=== PATIENT | male | born 1950 | race Caucasian/White ===

== ENCOUNTER 2020-05-28 09:36 | Day surgery (SDC) | payer MEDICARE, SELFPAY ==
[2020-05-25 13:10] VITALS: BMI 32.6
--- NOTE | 2020-05-27 13:46 | P.CONAN_ITS ---
Documented by User: Janeth Romero 05/27/20 13:51 HPI - Anesthesia Eval Consult details Narrative: 69yo M for L Henri R foot repair with MAC 03/2020 [facility] Past Medical History Medical History Arthritis Back pain BPH (benign prostatic hyperplasia) Elevated cholesterol Finger mass, right Gout Hypertension On beta mango at home Pre-diabetes Skin cancer TIA (transient ischemic attack) Surgical History Surgical History History of back surgery History of total right hip arthroplasty Hx of colonoscopy Hx of hammer toe correction S/P Achilles tendon repair Social History Social History Smoking Status: Never smoker Use of substances other than those prescribed or required for medical reasons: No Have you been hit, kicked, punched, or otherwise hurt by someone within the past year? If so, by whom?: No Advance Directives: No Advance Directives Information Provided: No Advance Directives on File: No Recently lost weight without trying: No Meds Allergies Allergy/AdvReac Type Severity Reaction Status Date / Time No Known Allergies Allergy Unknown Verified 05/28/20 10:05 Home Medications Medication Instructions Recorded Confirmed Type amlodipine 5 mg PO DAILY 05/25/20 05/25/20 History doxazosin 2 mg PO BEDTIME 05/25/20 05/25/20 History metoprolol tartrate 25 mg PO BID 05/25/20 05/25/20 History simvastatin 20 mg PO DAILY 05/25/20 05/25/20 History Exam Exam Date and Time: May 27, 2020 1346 Height,Weight and Vital Signs: Height 6 ft Weight 109.316 kg Pertinent Lab Results Pertinent Lab Results: Laboratory Tests 03/09/20 03/09/20 11:35 11:35 WBC 6.6 Hgb 12.5 L Hct 35.9 L Plt Count 238 Sodium 138 Potassium 4.0 Chloride 103 BUN 9 Creatinine 0.96 Assessment and Plan Assessment Anesthesia Assessment: Chart Reviewed Documented by User: Arsen Griggs 05/28/20 10:23 [facility] Past Medical History Medical History Arthritis Back pain BPH (benign prostatic hyperplasia) Elevated cholesterol Finger mass, right Gout Hypertension On beta mango at home Pre-diabetes Skin cancer TIA (transient ischemic attack) Surgical History Surgical History History of back surgery History of total right hip arthroplasty Hx of colonoscopy Hx of hammer toe correction S/P Achilles tendon repair Social History Social History Smoking Status: Never smoker Use of substances other than those prescribed or required for medical reasons: No Have you been hit, kicked, punched, or otherwise hurt by someone within the past year? If so, by whom?: No Advance Directives: No Advance Directives Information Provided: No Advance Directives on File: No Recently lost weight without trying: No Meds Allergies Allergy/AdvReac Type Severity Reaction Status Date / Time No Known Allergies Allergy Unknown Verified 05/28/20 10:05 Home Medications Medication Instructions Recorded Confirmed Type amlodipine 5 mg PO DAILY 05/25/20 05/25/20 History doxazosin 2 mg PO BEDTIME 05/25/20 05/25/20 History metoprolol tartrate 25 mg PO BID 05/25/20 05/25/20 History simvastatin 20 mg PO DAILY 05/25/20 05/25/20 History Exam Airway Mallampati Class: II TM Dist: >3cm Neck ROM: Full Heart: RRR Assessment and Plan Assessment Anesthesia Assessment: Anesthesia Plan Discussed Final Anesthetic Review NPO: Yes ASA Class: II Final Preanesthetic Review: Consent Obtained/Reviewed Anesthetic Plan Anesthetic Plan: MAC:
--- NOTE | 2020-05-27 13:55 | MHC.SHP ---
Pre-Procedural Eval Section A The patient is an INPATIENT: No Changes since office visit: Yes Patient answered all questions The History & Physical has been completed within 30 days and I have reviewed it.: Yes Section B Chief Complaint: Skin Ulcer and Left 2nd Osteomylitis Allergies: Allergies Allergy/AdvReac Type Severity Reaction Status Date / Time No Known Allergies Allergy Unknown Unverified 05/25/20 12:59 Plan Diagnosis/Plan: Unchanged Patient has been examined and remains a candidate for the planned procedure
--- NOTE | 2020-05-28 | HP_ITS ---
[facility] HISTORY AND PHYSICAL PATIENT NAME: Bobo Benjamin DATE OF : 1950 LOCATION: [facility] DATE OF ADMIT: 05/28/2020 PCP: HISTORY AND PHYSICAL Page 2 DATE OF SERVICE: 05/28/2020 DATE OF PROPOSED SURGERY: 05/28/2020. PREOPERATIVE DIAGNOSES: 1. Hammertoe, left 2nd. 2. Hammertoe, left 3rd. 3. Hammertoe, left 4th. 4. Hammertoe, left 5th. 5. Skin ulcer, left foot. 6. Osteomyelitis, left second toe. 7. Skin disease of left third and fourth toes. PLANNED PROCEDURES: 1. Hammertoe repair, left 2nd, 3rd, 4th, and 5th toes. 2. Excision of skin ulcer. 3. Bone biopsy, left foot. 4. Complex wound closure, left foot. 5. Excision of diseased skin, left foot. PLANNED ANESTHESIA: MAC anesthesia. CHIEF COMPLAINT AND HISTORY OF PRESENT ILLNESS: Bobo Benjamin is a 69-year-old male, who relates history of progressively worsening painful hammertoes of the left second through fifth toes. The patient has had multiple episodes of skin infection and skin ulceration with probable osteomyelitis involving the distal aspect of the left second toe. This condition has been present over the past few years and has progressively worsened since his Achilles tendon rupture followed by surgical repair. Conservative care has consisted of change in shoes, accommodative padding, debridement, wound care, oral and topical antibiotics. The patient is now requesting surgical treatment. PAST MEDICAL HISTORY: Significant for a history of gout, arthritis, anemia, hypertension, high cholesterol. CURRENT MEDICATIONS: Simvastatin 20 mg, metoprolol 25 mg, doxazosin 2 mg, aspirin 81 mg, amlodipine 5 mg. ALLERGIES: THE PATIENT HAS NO KNOWN ALLERGIES OR DRUG SENSITIVITIES. FAMILY HISTORY: Significant for hypertension, heart disease, colon cancer. SOCIAL HISTORY: The patient denies smoking, denies use of any recreational drugs, denies use of any caffeinated drinks. The patient does drink 1 to 2 alcoholic drinks per day. 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 PODIATRIC PHYSICAL EXAMINATION: VASCULAR EXAM: The patient displays +1/4 pulse of DP and PT arteries bilateral with normal cap refill time. The patient also displays +1/4 edema bilateral ankles and legs. DERMATOLOGIC: Reveals a small skin ulceration on the plantar aspect of the left second toe measuring 2 mm in diameter x 1 mm in depth. There is currently no active infection noted involving the skin. NEUROLOGIC EXAM: Reveals vibratory sensation, reduced light touch, left foot more severe than the right. ORTHOPEDIC EXAM: Reveals a rigid hammertoe/mallet toe involving the left second through fifth toes, which is non reducible. The patient was seen most recently in my office on May 13, 2020. Preoperative informed consent was obtained from the patient that day for his planned left foot surgery. The patient has been instructed of all potential risks and complications and is compliant with surgical treatment. Preoperative medical clearance will be provided by the primary care physician, Dr. Yan Rose. BEATRICE Sosa/MARI / [id number] CC:? Yan Rose MD MTDD
--- NOTE | 2020-05-28 | HP_ITS ---
[facility] HISTORY AND PHYSICAL PATIENT NAME: Bobo Benjamin DATE OF : 1950 LOCATION: [facility] [[email or web address] DATE OF ADMIT: 05/28/2020 PCP: HISTORY AND PHYSICAL Page 1 DATE OF SERVICE: 05/28/2020 HISTORY OF PRESENT ILLNESS: The patient is a 69-year-old male, who is scheduled for surgery with Dr. Crenshaw, left hammertoes repair. The patient previously had right foot repair couple of months ago. He was seen in the office for repeat preop check on May 05, 2020. He feels well. His surgery scheduled for May 28. He had an EKG done in March. Labs were reviewed. REVIEW OF SYSTEMS: Unchanged. PAST MEDICAL HISTORY: Unchanged. PHYSICAL EXAMINATION: GENERAL: He is awake and alert, in no distress. VITAL SIGNS: Temperature 98.1, pulse 72, respirations 12, blood pressure 140/80. Weight is 241, 6 feet. HEENT: Clear. NECK: Supple. No lymph nodes, bruits, or masses. HEART: Sounds S1 and S2. Regular rate. LUNGS: Clear. ABDOMEN: Soft, nontender. Positive bowel sounds. No HSM. EXTREMITIES: No clubbing or cyanosis. Trace edema. 1+ pulses. NEUROLOGICAL: Nonfocal. Cranial nerves are intact. PRESENT MEDICATIONS: Simvastatin 20 mg, metoprolol 25 mg twice a day, amlodipine 5 mg a day, doxazosin 2 mg a day. ASSESSMENT AND PLAN: He is medically stable for the proposed procedure. I will be available if there are any medical questions. MD MANNY Epstein/MARI / [id number] MTDD
[2020-05-28 10:19] VITALS: BP 117/81; PULSE 59; RESP 16; TEMP 36.4; O2SAT 98
[2020-05-28] MEDS: ceFAZolin Sodium/Dextrose,Iso 2 GM/50 ML PIGGYBACK IV (10:26)
[2020-05-28] MEDS: Lactated Ringers 1,000 ML 100 ML IVCONT (10:35)
[2020-05-28 12:17] VITALS: BP 97/57; PULSE 57; RESP 18; TEMP 36; O2SAT 95
--- NOTE | 2020-05-28 12:28 | PM.OP ---
Brief Operative Note Date of procedure: 05/28/20 Pre-op diagnosis: hammertoe left 2,3,4 and 5th toes; skin ulcer left 2nd toe, OM left 2, ulce Post-op diagnosis: same Procedure: hammertoe repair left 2,3,4 and 5th toes; excision of skin ulcer left 2nd toe, bone biopsy left 2nd toe, excision of skin left 3rd and 4th toes with complex wound closure over exposed tendon and bone Surgeon: Efrain Reina Anesthesia: MAC Estimated blood loss (mL): 1.0 Condition: stable
[2020-05-28 12:32] VITALS: BP 134/67; PULSE 51; RESP 16; O2SAT 98
[2020-05-28 12:47] VITALS: BP 138/87; PULSE 52; RESP 18; O2SAT 98
--- NOTE | 2020-05-28 13:14 | HO.POSTANES ---
Post Anesthesia Evaluation Post Anesthesia Evaluation Vital Signs: Vital Signs Temp Pulse Resp BP Pulse Ox 05/28/20 12:47 96.8 F 52 18 138/87 98 05/28/20 12:32 51 16 134/67 98 05/28/20 12:17 96.8 F 57 18 97/57 L 95 05/28/20 10:19 97.6 F 59 16 117/81 98 Anesthesia: Monitored Mental Status: Awake Pain Control: Satisfactory Nausea/Vomiting: None Hydration: Adequate Anesthesia-Related Issues: No Anes. Related Issues
--- NOTE | 2020-05-28 13:35 | OP_ITS ---
SURGEON: Efrain Reina DPM PREOPERATIVE DIAGNOSIS: POSTOPERATIVE DIAGNOSIS: PROCEDURE PERFORMED: ESTIMATED BLOOD LOSS: COMPLICATIONS: ANESTHESIA: Consisted of local administration of a total of 12 mL of an equal mix of 2% lidocaine with epinephrine 1:100,000, and 0.5% Marcaine plain. Intravenous sedation was provided by the Anesthesia Department. ASSISTANTS: SPECIMENS: PREOPERATIVE DIAGNOSES: 1. Hammertoe of left second toe. 2. Hammertoe of left third toe. 3. Hammertoe of left fourth toe. 4. Hammertoe of left fifth toe. 5. Skin ulcer, left second toe. 6. Possible osteomyelitis, chronic osteomyelitis, left second toe distal phalanx. 7. Skin disease of the left third and fourth toes. POSTOPERATIVE DIAGNOSES: 1. Hammertoe of left second toe. 2. Hammertoe of left third toe. 3. Hammertoe of left fourth toe. 4. Hammertoe of left fifth toe. 5. Skin ulcer, left second toe. 6. Possible osteomyelitis, chronic osteomyelitis, left second toe distal phalanx. 7. Skin disease of the left third and fourth toes. PROCEDURES PERFORMED: 1. Hammertoe repair of left second toe. 2. Hammertoe repair of left third toe. 3. Hammertoe repair of left fourth toe. 4. Hammertoe repair of left fifth toe. 5. Excision of skin ulcer, left second toe. 6. Bone biopsy, left second toe. 7. Complex wound closure overlying the exposed bone and tendon. 8. Excision of skin lesions of left third and fourth toes. ENVIRONMENTAL CONTROL ADMINISTRATOR SURGEON: Shanon Garcia DPM INTRODUCTION: The patient was brought to the operating room, placed on the operating table in the supine position. After having been suitably anesthetized with local infiltrative anesthesia, the left lower extremity was then prepped and draped in the usual sterile manner. Please note that prior to the start of the procedure, the left foot was exsanguinated utilizing an Esmarch bandage and left ankle tourniquet was then inflated to 250 mmHg pressure for the duration of the procedures. Hammertoe repair of left second, third, fourth, and fifth toes: Attention was directed to the dorsum of the left second, third, fourth, and fifth toes, where dorsal incision of approximately 2 to 2.5 cm in length were effected centered over the dorsum of the PIP joints. The incisions were deepened in the same plane and hemostasis was acquired as necessary. Skin margins were underscored and retracted. A transverse incision was effected through the extensor tendon complex at the level of the proximal interphalangeal joint and the extensor tendon was underscored and retracted. The hypertrophic head of the proximal phalanx was then delivered from the wound and excised from the wound in toto utilizing a power sagittal saw. The wound was irrigated with copious amounts of sterile saline. The extensor tendons were coapted to maintain utilizing a 3-0 Vicryl and skin margins were closed with 4-0 nylon. Excision of skin ulcer and bone biopsy, left second toe: Attention was directed to the dorsum of the left second toe, where a transverse incision was effected at the level of the distal interphalangeal joint. A converging elliptical incision was effected just beyond distal and plantar to the skin ulcer of the left second toe. The incisions were deepened in same plane and the ellipse of skin as well as ulcer and distal phalanx were excised and sent to Pathology for bone biopsy evaluation for osteomyelitis. Wound was irrigated. The skin margins were then coapted to maintain utilizing 3-0 nylon. Excision of skin lesions, left third and fourth toes. Attention was directed to the left third and fourth toe, where transverse incisions were effected at the level of the DIP joint and then converging elliptical incisions were effected to excise the diseased skin and nail as well as distal phalanx of both these toes. The wounds were irrigated with copious amounts of sterile saline. Skin margins were then closed with a combination of 3-0 and 4-0 nylon utilizing complex wound closure over exposed bone and tendon. CONCLUSION: At the conclusion of these procedures, the operative sites were injected with 5 mL of Marcaine 0.5% plain, 1 mL of dexamethasone phosphate. Sterile Xeroform, 2-inch Conform, 1-inch Conform Betadine-soaked gauze, Kerlix fluffs, and 4-inch Conform were applied to the left lower extremity. The left ankle tourniquet was deflated. Normal blood flow was reestablished to the left lower extremity. The patient was discharged to recovery with vital signs stable. FINAL DISPOSITION: The patient is discharged to home with instructions for self-care include the followin. To keep dressings dry, clean, and intact. 2. To keep the left leg elevated with ice above the ankle. 3. To take all medications as prescribed. 4. Limit activity to minimum. 5. To always use surgical shoe and crutches or walker when ambulating. 6. Lastly, the patient has prescription for Keflex 500 mg, total #20 one p.o. b.i.d. BEATRICE Sosa/MARI / [id number]
== END 2020-05-28 13:30 | disposition home or self-care (01) ==
PROVIDERS: PCP Internal Medicine; Visit Provider Podiatrist
PROC: (CPT 28285; principal; 2020-05-28 11:20)
DX: M20.42 Other hammer toe(s) (acquired), left foot (principal); L97.521 Non-pressure chronic ulcer of other part of left foot limited to breakdown of skin; M86.9 Osteomyelitis, unspecified; L98.8 Other specified disorders of the skin and subcutaneous tissue; M10.9 Gout, unspecified; R73.03 Prediabetes; E78.00 Pure hypercholesterolemia, unspecified; I10 Essential (primary) hypertension; Z79.899 Other long term (current) drug therapy; Z85.828 Personal history of other malignant neoplasm of skin; Z86.73 Personal history of transient ischemic attack (TIA), and cerebral infarction without residual deficits; Z96.641 Presence of right artificial hip joint; Z98.890 Other specified postprocedural states
CPT/HCPCS: 28285 ×4; 11423 ×2; 13131; 88304; 88305; 88311; J0690; J1100; J2250; J3010

== ENCOUNTER 2020-07-29 14:18 | Outpatient (REF) | payer MEDICARE, SELFPAY ==
[2020-07-29 15:26] LABS: Influenza A PCR NEGATIVE (Negative); Influenza B PCR NEGATIVE (Negative); Resp Syncy Virus RNA Qual PCR NEGATIVE (Negative); SARS COV2 PCR INHOUSE NEGATIVE (Negative)
== END 2020-07-29 14:19 | disposition home or self-care (01) ==
LOC: HO.LNP 14:18
PROVIDERS: Visit Provider Internal Medicine
DX: Z20.828 Contact with and (suspected) exposure to other viral communicable diseases (principal)
CPT/HCPCS: 0241U

== ENCOUNTER 2021-03-09 11:50 | Outpatient (REF) | payer MEDICARE, SELFPAY ==
[2021-03-09 13:20] LABS: MANUAL DIFF FLAG NO
[2021-03-09 13:23] LABS: Basophils Percent Auto 0.7 % (0-2); Eosinophils Absolute Auto 0.1 X10*3/uL (0.0-0.4); Eosinophils Percent Auto 1.9 % (0-4); Hemoglobin 12.1 g/dl (14.0-18.0); Imm Gran Abs Auto 0.02 X10*3/uL (0.00-0.03); Imm Gran Pct Auto 0.3 % (0.0-0.4); Lymphocytes Absolute Auto 1.4 X10*3/uL (1.2-4.9); Lymphocytes Percent Auto 24.8 % (20-40); Mean Corpuscular HGB Conc 34.6 g/dl (31.0-36.0); Mean Corpuscular Volume 89.7 fL (80-98); Mean Platelet Volume 10.9 fL (9.4-12.4); Monocytes Absolute Auto 0.5 X10*3/uL (0.1-1.2); Monocytes Percent Auto 8.6 % (2-11); Neutrophils Absolute Auto 3.7 X10*3/uL (2.0-8.3); Neutrophils Percent Auto 63.7 % (45-73); Platelet Count 228 X10*3/uL (160-400); Red Cell Distribution Width 12.3 % (11.0-16.0); White Blood Count 5.7 X10*3/uL (4.8-10.8)
[2021-03-09 13:44] LABS: Alanine Aminotransferase 23 U/L (0-40); Alkaline Phosphatase 44 U/L (39-117); Anion Gap 13 (12-20); Aspartate Amino Transferase 23 U/L (5-37); Bilirubin Total 0.6 mg/dL (0.0-1.0); Blood Urea Nitrogen 12 mg/dL (9-16); Carbon Dioxide 24 mmol/L (22-29); Chloride 106 mmol/L (96-108); Estimated Glomerular Filt Rate > 60; Glucose Random 130 mg/dL (60-115); Potassium 4.1 mmol/L (3.3-5.1); Sodium 139 mmol/L (135-145); Total Protein 6.4 g/dL (6.5-8.0)
[2021-03-09 13:58] LABS: Prostate Specific Antigen Scr 2.38 ng/mL (<0.05-4.0)
[2021-03-09 14:16] LABS: Vitamin B12 347 pg/mL (200-900)
[2021-03-09 14:22] LABS: Erythrocyte Sedimentation Rate 17 MM/HR (0-15)
== END 2021-03-09 11:51 | disposition home or self-care (01) ==
LOC: HO.10HDL 11:50
PROVIDERS: PCP Internal Medicine; Visit Provider Internal Medicine
DX: Z12.5 Encounter for screening for malignant neoplasm of prostate (principal); I10 Essential (primary) hypertension; E78.00 Pure hypercholesterolemia, unspecified; N40.0 Benign prostatic hyperplasia without lower urinary tract symptoms; D64.9 Anemia, unspecified; H53.2 Diplopia
CPT/HCPCS: 36415; 80053; 82607; 84153; 85025; 85652; 86140

== ENCOUNTER 2021-03-17 14:52 | Outpatient (REF) | payer MEDICARE, SELFPAY ==
--- NOTE | ~2021-03-17 | MR_ITS ---
EXAMINATION: MR BRAIN WITHOUT AND WITH CONTRAST CLINICAL INFORMATION: Diplopia. Rule out MOLD DRESSER lesion. COMPARISON: MRI dated 10/29/2008. TECHNIQUE: Multiplanar, multisequence imaging of the brain was performed before and after the intravenous administration of 10 mL of Gadavist. Slightly limited study with motion artifact. FINDINGS: No diffusion abnormalities are identified to suggest an acute infarct. No evidence of hydrocephalus. No mass effect or midline shift is seen. Mild chronic white matter microangiopathic changes noted with generalized parenchymal volume loss and concordant mild ex vacuo dilatation of the ventricles. No extra-axial fluid collections are seen. The brainstem and cerebellum are normal. There is no abnormal parenchymal or leptomeningeal enhancement. The orbits appear normal. The gradient refocused acquisition demonstrates no pathologic magnetic susceptibility artifact to indicate underlying acute or chronic blood products. The craniovertebral junction, marrow signal, and midline structures are normal. The major intracranial flow voids at the level of the [place] of Shrestha are preserved. The dural venous sinus flow voids are maintained. The mastoid air cells are well aerated. There is mild mucosal thickening in the left maxillary antrum. MR/MR head/brain wo/w con IMPRESSION: No acute intracranial process. Mild chronic white matter microangiopathy. No abnormal enhancement.
== END 2021-03-17 14:53 | disposition home or self-care (01) ==
LOC: HO.MRI 14:52
PROVIDERS: PCP Internal Medicine; Visit Provider Internal Medicine
DX: H53.2 Diplopia (principal)
CPT/HCPCS: 70553; A9585

== ENCOUNTER 2021-03-29 11:36 | Outpatient (REF) | payer MEDICARE, SELFPAY ==
[2021-03-29 12:30] LABS: Influenza A PCR NEGATIVE (Negative); Influenza B PCR NEGATIVE (Negative); Resp Syncy Virus RNA Qual PCR NEGATIVE (Negative); SARS COV2 PCR INHOUSE NEGATIVE (Negative)
== END 2021-03-29 11:37 | disposition home or self-care (01) ==
LOC: HO.LNP 11:36
PROVIDERS: Visit Provider Internal Medicine
DX: Z20.822 Contact with and (suspected) exposure to COVID-19 (principal)
CPT/HCPCS: 0241U

== ENCOUNTER 2021-11-24 08:38 | Outpatient (REF) | payer MEDICARE, SELFPAY ==
[2021-11-24 11:23] LABS: MANUAL DIFF FLAG NO
[2021-11-24 11:30] LABS: Basophils Percent Auto 0.6 % (0-2); Eosinophils Absolute Auto 0.2 X10*3/uL (0.0-0.4); Eosinophils Percent Auto 3.5 % (0-4); Hematocrit 37.4 % (42.0-52.0); Hemoglobin 12.9 g/dl (14.0-18.0); Imm Gran Abs Auto 0.02 X10*3/uL (0.00-0.03); Imm Gran Pct Auto 0.4 % (0.0-0.4); Lymphocytes Absolute Auto 1.6 X10*3/uL (1.2-4.9); Lymphocytes Percent Auto 31.8 % (20-40); Mean Corpuscular HGB Conc 34.5 g/dl (31.0-36.0); Mean Corpuscular Hemoglobin 31.5 pg (27.0-33.0); Mean Corpuscular Volume 91.2 fL (80.0-98.0); Mean Platelet Volume 10.5 fL (9.4-12.4); Monocytes Absolute Auto 0.4 X10*3/uL (0.1-1.2); Monocytes Percent Auto 8.1 % (2-11); Neutrophils Absolute Auto 2.7 x10*3/uL (2.0-8.3); Neutrophils Percent Auto 55.6 % (45-73); Platelet Count 253 X10*3/uL (160-400); Red Cell Distribution Width 12.6 % (11.0-16.0); White Blood Count 4.9 X10*3/uL (4.8-10.8)
[2021-11-24 12:03] LABS: Alanine Aminotransferase 36 U/L (0-40); Albumin Level 4.1 g/dL (3.5-5.0); Alkaline Phosphatase 44 U/L (39-117); Anion Gap 11 (12-20); Aspartate Amino Transferase 29 U/L (5-37); Bilirubin Total 0.6 mg/dL (0.0-1.0); Blood Urea Nitrogen 10 mg/dL (9-16); Calcium 9.4 mg/dL (8.4-10.2); Carbon Dioxide 27 mmol/L (22-29); Chloride 105 mmol/L (96-108); Cholesterol 184 mg/dL; Estimated Glomerular Filt Rate > 60; Glucose Fasting 113 mg/dL (60-99); HDL Cholesterol 46 mg/dL; LDL Cholesterol Calculated 105 mg/dl; Potassium 4.1 mmol/L (3.3-5.1); Sodium 139 mmol/L (135-145); Total Protein 6.8 g/dL (6.5-8.0); Triglycerides 168 mg/dL
[2021-11-24 12:11] LABS: Vitamin D 25-OH Total 28.6 ng/mL (>30)
== END 2021-11-24 08:39 | disposition home or self-care (01) ==
LOC: HO.HMGCLDS 08:38
PROVIDERS: Absent Provider Dentist Periodontics; PCP Internal Medicine; Visit Provider Internal Medicine
DX: E55.9 Vitamin D deficiency, unspecified (principal); I10 Essential (primary) hypertension; E78.00 Pure hypercholesterolemia, unspecified; N40.0 Benign prostatic hyperplasia without lower urinary tract symptoms; Z12.5 Encounter for screening for malignant neoplasm of prostate
CPT/HCPCS: 36415; 80053; 80061; 82306; 84153; 85025

== ENCOUNTER 2023-11-24 09:37 | Day surgery (SDC) | payer MEDICARE, SELFPAY ==
[2023-11-24 09:49] VITALS: BMI 33.0
[2023-11-24] MEDS: Lactated Ringers 1,000 ML 80 ML IVCONT (09:57)
[2023-11-24 10:03] VITALS: BP 163/57; PULSE 66; RESP 18; TEMP 36.6; O2SAT 96
[2023-11-24 10:56] VITALS: BP 102/48; PULSE 59; RESP 16; TEMP 36.2; O2SAT 94
--- NOTE | 2023-11-24 11:03 | P.BOP_ITS ---
Brief Operative Note Date of Service: 11/24/23 Pre-op diagnosis: Screening Post-op diagnosis: other (Diverticulosis) Procedure: Colonoscopy to the cecum and TI Surgeon: Lee Yost MD Anesthesia: MAC Was an Consumer Electronic Retail Specialist used for this Procedure?: No Estimated blood loss (mL): 0 Pathology: none sent Condition: stable Disposition: PACU
--- NOTE | 2023-11-24 11:07 | PC.NURSE ---
additional 500lr as per md. Patel
[2023-11-24 11:10] VITALS: BP 129/66; PULSE 49; RESP 16; O2SAT 95
[2023-11-24 11:25] VITALS: BP 124/70; PULSE 53; RESP 16; TEMP 36.2; O2SAT 96
--- NOTE | 2023-11-24 11:49 | P.CONAN_ITS ---
HPI - Anesthesia Eval Consult details Narrative: for colon screen [facility] Past Medical History Medical History Finger mass, right Skin cancer Gout Arthritis TIA (transient ischemic attack) On beta mango at home Pre-diabetes Elevated cholesterol BPH (benign prostatic hyperplasia) Back pain Hypertension Family History Family history of problems with anesthesia: No Surgical History Surgical History Hx of hammer toe correction S/P Achilles tendon repair History of back surgery Hx of colonoscopy History of total right hip arthroplasty History of Problems with Anesthesia: No Social History Social History Patient Tobacco Use Status: Never used Tobacco Advance Directives: No Advance Directives Information Provided: Yes Nutrition Risks: No Nutritional Risk Meds Allergies Allergy/AdvReac Type Severity Reaction Status Date / Time No Known Allergies Allergy Unknown Verified 11/24/23 09:52 Active Medications: Current Medications Lactated Ringer's (Lr) 1,000 mls @ 80 mls/hr IVCONT .[id number] STEVE Last Admin: 11/24/23 09:57 Dose: 80 mls/hr Sodium Biphosphate/Sodium Phosphate (Sodium Phosphate,Trinity-Dibasic 133 Ml Enema) 133 ml NC ONCE PRN PRN Reason: Poor Colonoscopy Prep Results Home Medications ?Medication ?Instructions ?Recorded ?Confirmed ?Last Taken ?Type amlodipine 5 mg tablet 5 mg PO DAILY 05/25/20 11/24/23 11/24/23 History doxazosin 2 mg tablet 2 mg PO BEDTIME 05/25/20 11/24/23 Unknown History metoprolol tartrate 25 mg tablet 25 mg PO BID 05/25/20 11/24/23 11/24/23 History simvastatin 20 mg tablet 20 mg PO DAILY 05/25/20 11/24/23 Unknown History Exam Height,Weight and Vital Signs: Height 5 ft 11.5 in Weight 108.862 kg Last Vital Signs Temp 97.2 F 11/24/23 11:25 Pulse 53 11/24/23 11:25 Resp 16 11/24/23 11:25 BP 124/70 11/24/23 11:25 Pulse Ox 96 11/24/23 11:25 O2 Del Method Room Air 11/24/23 11:25 Airway Mallampati Class: II TM Dist: >3cm Neck ROM: Full Heart: rrr Lungs: cta Assessment and Plan Assessment Anesthesia Assessment: Anesthesia Plan Discussed and Chart Reviewed Final Anesthetic Review Family History of Problems with Anesthesia: No History of Problems with Anesthesia: No NPO: Yes ASA Class: III Final Preanesthetic Review: No Changes in Pt Med Stat, Meds/Allgs Chart Reviewed, Consent Obtained/Reviewed and Anes Risks/Benef Reviewed Patient Risk: Intermediate Procedure Risk: Low Anesthetic Plan Anesthetic Plan: MAC: Disposition: Standard PACU
--- NOTE | 2023-11-24 21:39 | OP_ITS ---
DATE OF SERVICE: 11/24/2023 SURGEON: Lee Yost MD INDICATIONS: The patient presents for evaluation of personal history of tubular adenoma of the colon, family history of colon cancer, and colorectal cancer screening. Full consent has been obtained from him for this, including risks of bleeding and perforation. PREOPERATIVE DIAGNOSIS: POSTOPERATIVE DIAGNOSIS: PROCEDURE PERFORMED: Colonoscopy to the cecum and terminal ileum. ESTIMATED BLOOD LOSS: COMPLICATIONS: ANESTHESIA: Monitored anesthesia care. ASSISTANTS: SPECIMENS: PREOPERATIVE DIAGNOSES: Colorectal cancer screening, family history of colon cancer, personal history of tubular adenoma of the colon. POSTOPERATIVE DIAGNOSES: Colorectal cancer screening, family history of colon cancer, personal history of tubular adenoma of the colon, sigmoid diverticulosis, and internal hemorrhoids. DESCRIPTION OF PROCEDURE: The patient was placed in the left lateral decubitus position. The digital rectal exam revealed no abnormalities. The Olympus video pediatric colonoscope was entered into the rectum and advanced easily to the cecum. Once in the cecum, I did identify normal-appearing cecal pouch with appendiceal orifice and a normal-appearing ileocecal valve. The terminal ileum was cannulated and appeared normal. The scope was withdrawn back in the colon. The entire cecum and ileocecal valve appeared normal. The scope was slowly withdrawn assessing all mucosal surfaces carefully. Preparation was excellent. I did not visualize any sign of polyps, colitis, nor angiodysplasia. There was a mild amount of sigmoid diverticulosis. In the rectum, scope was retroflexed visualizing internal hemorrhoids, but no other pathology. The rectal mucosa appeared normal. The scope was straightened and withdrawn from the patient. He tolerated the procedure well and was returned to the recovery area in stable condition. IMPRESSION: 1. Mild diverticulosis. 2. Internal hemorrhoids. PLAN: Given his family history, I would recommend a repeat colonoscopy in 5 years. He was advised to resume his aspirin regimen today. He will otherwise see me on a p.r.n. basis. This has been discussed with his . MD BERTHA Marroquin/MARI / [id number]
== END 2023-11-24 11:55 | disposition home or self-care (01) ==
PROVIDERS: PCP Internal Medicine; Visit Provider Internal Medicine
PROC: 0DJD8ZZ Inspection of Lower Intestinal Tract, Via Natural or Artificial Opening Endoscopic (ICD-10-PCS; CPT 45378; principal; 2023-11-24 11:10)
DX: Z12.11 Encounter for screening for malignant neoplasm of colon (principal); Z80.0 Family history of malignant neoplasm of digestive organs; K57.30 Diverticulosis of large intestine without perforation or abscess without bleeding; K64.8 Other hemorrhoids; I10 Essential (primary) hypertension; E78.5 Hyperlipidemia, unspecified; M10.9 Gout, unspecified; Z86.73 Personal history of transient ischemic attack (TIA), and cerebral infarction without residual deficits; Z79.82 Long term (current) use of aspirin; Z79.899 Other long term (current) drug therapy; Z98.890 Other specified postprocedural states
CPT/HCPCS: G0105; J2704

== ENCOUNTER 2024-09-17 07:58 | Outpatient (REF) | payer MEDICARE, SELFPAY ==
--- OUTSIDE RECORDS SUMMARY | 2024-09-17 08:01 | XMS_ITS | Data Portability ---
Author Organization [facility] Address [address] [facility] [address] [place] [address] Care Team Providers Care Printed Circuit [employer] Panels Deburrer Name Role Phone RASTA COATS Referring Provider JUANA LUTZ Primary Care Provider Assessment Encounter Date Assessment Date Assessment LastModified by Organization Details LastModified Time 07/11/2018 07/11/2018 Bobo Benjamin is a 68 year old man with low back pain radiating into right lower extremity with numbness . On exam ,he has pain on flexion. Straight leg raising test is positive on the right. MRI Lumbar spine shows degenerative changes and post operative changes at L5-S1 level. There is a right posterior disc protrusion at L3-4 level effacing the right side of the thecal sac and compressing the traversing right L4 nerve roots. Trial of Lumbar epidural steroid injections under fluoroscopic guidance was recommended. The risks and benefits of the procedure were discussed in detail. He wishes to proceed. An appointment has been booked for the same. He needs a telephone directory distributor driver on the day of the procedure. [email or web address] Not available 07/12/2018 14:20:41 07/18/2018 07/18/2018 Bobo Benjamin is a 68 year old man with low back pain radiating into right lower extremity with numbness . On exam ,he has pain on flexion. Straight leg raising test is positive on the right. MRI Lumbar spine shows degenerative changes and post operative changes at L5-S1 level. There is a right posterior disc protrusion at L3-4 level effacing the right side of the thecal sac and compressing the traversing right L4 nerve roots. He is here for a trial of Lumbar epidural steroid injections under fluoroscopic guidance . The risks and benefits of the procedure were discussed in detail. He wishes to proceed. He needs to follow up in four weeks [email or web address] Not available 07/19/2018 09:20:35 08/16/2018 08/16/2018 Bobo Benjamin is a 68 year old man with low back pain radiating into right lower extremity with numbness . On exam ,he has pain on flexion. Straight leg raising test is positive on the right. MRI Lumbar spine shows degenerative changes and post operative changes at L5-S1 level. There is a right posterior disc protrusion at L3-4 level effacing the right side of the thecal sac and compressing the traversing right L4 nerve roots. Repeat Lumbar epidural steroid injections under fluoroscopic guidance was recommended. The risks and benefits of the procedure were discussed in detail. He wishes to proceed. He needs a telephone directory distributor driver on the day of the procedure. He will call for an appointment after his achilles tendon rupture repair surgery and discussing with surgeon on when he can safely have a steroid injection. [email or web address] Not available 08/16/2018 15:16:41 10/10/2018 10/10/2018 Bobo Benjamin is a 68 year old man with low back pain radiating into right lower extremity with numbness . On exam ,he has pain on flexion. Straight leg raising test is positive on the right. MRI Lumbar spine shows degenerative changes and post operative changes at L5-S1 level. There is a right posterior disc protrusion at L3-4 level effacing the right side of the thecal sac and compressing the traversing right L4 nerve roots. He is here for a repeat Lumbar epidural steroid injections under fluoroscopic guidance . The risks and benefits of the procedure were discussed in detail. He wishes to proceed. He needs to follow up in four weeks [email or web address] Not available 10/11/2018 09:50:27 Plan of Treatment Reminders Order Date Submit Date Provider Last Modified By Organization Details Last Modified Time Details Appointments None record ed. Lab None record ed. Referral None record ed. Procedures None record ed. Surgeries None record ed. Imaging None record ed. Medication Orders None record ed. Patient TargetsNo targets recorded. Patient Instructions Encounter Date Encounter Id Patient Instructions Last Modified By Organization Details Last Modified Time 07/11/2018 [id number] He was advised against bed rest lasting longer than four days and to continue activities as tolerated. [email or web address] Not available 07/12/2018 14:07:14 07/18/2018 [id number] He was advised against bed rest lasting longer than four days and to continue activities as tolerated. [email or web address] Not available 07/19/2018 09:20:09 08/16/2018 [id number] He was advised against bed rest lasting longer than four days and to continue activities as tolerated. [email or web address] Not available 08/16/2018 14:22:47 10/10/2018 [id number] He was advised against bed rest lasting longer than four days and to continue activities as tolerated. [email or web address] Not available 10/11/2018 09:49:11 Reason for Referral None Reported. Problems Name Problem SNOMED Code Status Onset Date Resolution Date Notes Provider Name and Address Organization Details Recorded Time Lumbosacral radiculopathy 4502526 Active Sallie underwood MD [address] , [address], [place], [address], [place] [facility] 8 15:00:27 Degeneration of lumbar intervertebral disc 46748145 Active Sallie underwood MD [address] , [address], [place], [address], [place] [facility] 8 15:00:36 Lumbosacral spondylosis without myelopathy 56486701 Active Sallie underwood MD [address] , [address], [place], [address], [place] [facility] 8 15:00:54 Spinal stenosis of lumbar region 71848227 Active Sallie underwood MD [address] , [address], [place], [address], [place] [facility] 8 15:01:03 Problem Notes None recorded. Procedures Surgical History Date Name Laterality Status Provider Name and Address Organization Details Recorded Time 10/11/19 19 Lumbar Epidural steroid injection under fluoroscopic guidance completed Sallie Kaplan MD [address] , [address], [place], [address], [place] [facility] 10/11/2018 09:49:54 07/18/20 18 Lumbar Epidural steroid injection under fluoroscopic guidance completed Sallie Kaplan MD [address] , [address], [place], [address], [place] [facility] 07/19/2018 09:19:27 Back Surgery completed Sayra Marquez [place] [facility] 07/11/2018 15:11:29 Arthroscopic Surgery completed Sayra Marquez [place] [facility] 07/11/2018 15:12:20 Other completed Sayra Marquez [place] [facility] 07/11/2018 15:12:49 Imaging Results None recorded. Procedure Notes None recorded. Medical Equipment None Reported. Allergies No known drug allergies Medications Name Sig Start Date Stop Date Status Note LastModified by Organization Details LastModified Time aspirin 81 mg capsule Take by oral route. active Not Available Not Available No t Available methylpredn isolone 4 mg tablet 07/11 completed Not Available Not Available Not Available tramadol 50 mg tablet active Not Available Not Available No t Available acetaminoph en 500 mg tablet TAKE 2 TABLETS BY MOUTH EVERY 8 HOURS NEEDED FOR PAIN active Not Available Not Available No t Available aspirin 325 mg tablet,donn yed release TAKE 1 TABLET BY MOUTH EVERY DAY 10/10 completed Not Available Not Available Not Available cephalexin 500 mg capsule 10/10 completed Not Available Not Available Not Available simvastatin 20 mg tablet TAKE 1 TABLET BY MOUTH AT BEDTIME active Not Available Not Available No t Available losartan 25 mg tablet Pt taking 2 tabs daily active Not Available Not Available No t Available doxazosin 2 mg tablet TAKE 1 TABLET BY MOUTH AT BEDTIME active Not Available Not Available No t Available amoxicillin 875 mg-kaitlynnu m clavulanate 125 mg tablet 07/11 completed Not Available Not Available Not Available oxycodone 5 mg tablet active Not Available Not Available No t Available metoprolol tartrate 25 mg tablet active Not Available Not Available No t Available Fluzone High-Dose 7528-9088 (PF) 180 mcg/0.5 mL intramuscul ar syringe TO BE ADMINISTE RED BY PHARMACIS T FOR IMMUNIZAT ION 07/11 completed Not Available Not Available Not Available Fluzone High-Dose (PF) 180 mcg/0.5 mL intramuscul ar syringe TO BE ADMINISTE RED BY PHARMACIS T FOR IMMUNIZAT ION 07/11 completed Not Available Not Available Not Available Vitals Date Recorded Body height Body mass index (BMI) Body weight Heart rate Oxygen saturation Oxygen saturation in Arterial blood by Pulse oximetry Systolic blood pressure Diastolic blood pressure Provider Name and Address Organization Details Last Updated DateTime 8 182.88 cm 31.2 kg/m2 128590. 25 g 74 /min 97 % 97 % 163 mm[Hg] 88 mm[Hg] Sayra Marquez [facility] 8 14:59:24 Date Recorded Body height Heart rate Oxygen saturation Oxygen saturation in Arterial blood by Pulse oximetry Systolic blood pressure Diastolic blood pressure Provider Name and Address Organization Details Last Updated DateTime 8 182.88 cm 74 /min 98 % 98 % 187 mm[Hg] 90 mm[Hg] Sayra Marquez [facility] 8 08:34:28 Date Recorded Body height Heart rate Oxygen saturation Oxygen saturation in Arterial blood by Pulse oximetry Systolic blood pressure Diastolic blood pressure Provider Name and Address Organization Details Last Updated DateTime 9 182.88 cm 75 /min 97 % 97 % 168 mm[Hg] 87 mm[Hg] Sayra Marquez [facility] 9 08:42:24 Date Recorded Body height Heart rate Oxygen saturation Oxygen saturation in Arterial blood by Pulse oximetry Systolic blood pressure Diastolic blood pressure Provider Name and Address Organization Details Last Updated DateTime 9 182.88 cm 74 /min 98 % 98 % 171 mm[Hg] 89 mm[Hg] Sayragerardo TeranMarquez [place] [facility] 9 08:44:16 Social History Question Answer Notes LastModified by Organizat ion Details LastModified Time Tobacco Smoking Status Never Smoker Sayra Marquez [facility], [place] [facility] 07/11/2018 15:09:11 What Is Your Level Of Alcohol Consumption? Occasional Information not available 07/11/2018 Are You Currently Employed? No Information not available 07/11/2018 Which Illicit Or Recreational Drugs Have You Used? 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 With Others Information not available 07/11/2018 Marital Status Informatio n not available 07/11/2018 What Was The Date Of Your Most Recent Tobacco Screening? 10/11/2018 Information not available 02/27/2019 Sex: Unknown Functional Status None recorded. Mental Status None recorded. Family History Relationship Description Onset Age of this Age Resolved Age Notes LastModified by Organization Details LastModified Time Mother Malignant neoplastic disease Colon [email or web address] Not available 2017 15:08:58 Medical History Condition Response Neuropathy/Neuralgia Y Arthritis Y High Cholesterol Y Hypertension Y Past Encounters Encounter ID Performer Location Encounter Start Date Encounter Closed Date Diagnosis/Indication Diagnosis SNOMED-CT Code Diagnosis ICD10 Code Diagnosis Note [id number] Sallie Kaplan MD PAIN OFFICE [address] [place] [address] 07/11/2018 14:35:05 07/12/2018 14:21:32 Spinal stenosis of lumbar region 42801070 M48.061 Lumbosacra l radiculopathy 2781585 M54.17 Degenerati on of lumbar intervertebral disc 72086990 M51.36 Lumbosacra l spondylosis without myelopathy 75475387 M47.817 [id number] Sallie Kaplan MD PAIN OFFICE [address] [place] [address] 07/18/2018 08:31:36 07/19/2018 09:38:23 Spinal stenosis of lumbar region 01688871 M48.061 Lumbosacra l radiculopathy 1387342 M54.17 Degenerati on of lumbar intervertebral disc 17477459 M51.36 Lumbosacra l spondylosis without myelopathy 54274646 M47.817 [id number] Sallie Kaplan MD PAIN OFFICE [address] [place] [address] 08/16/2018 08:32:52 08/16/2018 15:17:26 Spinal stenosis of lumbar region 21569108 M48.061 Lumbosacra l radiculopathy 0266985 M54.17 Degenerati on of lumbar intervertebral disc 48780635 M51.36 Lumbosacra l spondylosis without myelopathy 97406319 M47.817 [id number] Sallie Kaplan MD PAIN OFFICE [address] [place] [address] 10/10/2018 08:35:41 10/11/2018 09:52:26 Spinal stenosis of lumbar region 76110963 M48.061 Lumbosacra l radiculopathy 9778303 M54.17 Degenerati on of lumbar intervertebral disc 99059091 M51.36 Lumbosacra l spondylosis without myelopathy 60343251 M47.817 Health Concerns Section Related Observation LastModified by Organization Detai ls LastModified Time None Recorded Concern Status LastModified by Organization Details LastModified Time None Recorded Advance Directives Directive None Recorded Payers Encounter Date Sequence Insurance Name Policy Number Policy Fuentes Covered Member ID Fuentes Member ID Guarantor Name 07/11/2018 1 [place] [employer] Bobo Benjamin [id number] Bobo Benjamin 07/11/2018 2 [place] [id number] Bobo Benjamin [id number] Bobo Benjamin 07/18/2018 1 [place] Bobo Benjamin [id number] Bobo Benjamin 07/18/2018 2 [place] [id number] Bobo Benjamin [id number] Bobo Benjamin 08/16/2018 1 [place] [facility] G[place]MENT [facility] Bobo Benjamin [id number] Bobo Benjamin 08/16/2018 2 [place] [id number] Bobo Benjamin [id number] Bobo Benjamin 10/10/2018 1 [place] Bobo Benjamin [id number] Bobo Benjamin 10/10/2018 2 [place] [id number] Bobo Benjamin [id number] Bobo Benjamin Notes Date Note Type Note Provider Name and Address Organization Details Recorded Time 07/11/2018 text/html Bobo Benjamin is a 68 year old man with complaints of low back pain radiating into right lower extremity. The pain started two years ago and is becoming greater over the past few months. 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 He describes the pain as a shooting pain , sharp from his right buttock region to the right leg with numbness, tingling and weakness in his right lower extremity. Current pain level is 5-10/10. Pain is aggravated by standing and walking . Pain is relieved a little with application of heat and sitting. He is unable to sleep due to positioning and awakens multiple times at night due to pain. He has no history of bladder or bowel incontinence.MRI Lumbar spine shows degenerative changes and post operative changes at L5-S1 level. There is a right posterior disc protrusion at L3-4 level effacing the right side of the thecal sac and compressing the traversing right L4 nerve roots.He has trialed physical therapy at [facility] [place], [place] with some pain benefit. He had a course of medrol dose pack with some pain benefit. He is taking aleve for pain. Sallie Kaplan MD [address] [facility] , [address], [place], [address], [facility] - [facility] 07/17/2018 09:13:08 07/18/2018 text/html He is here today for a lumbar epidural steroid injection under fluoroscopic guidance. Sallie Kaplan MD [address] [facility] , [address], [place], [address], [place] [facility] 07/24/2018 08:37:30 08/16/2018 text/html He is here for a follow up after a lumbar epidural steroid injection under fluoroscopic guidance. He reports 50% pain benefit which is ongoing. He has a torn achilles tendon in his left leg which happened spontaneously after shira. He is having surgery next week with Dr. Troy. His gait has altered after his tendon rupture and is causing worsening of his low back pain . He has no history of bladder or bowel incontinence. Sallie Kaplan MD [address] , [address], [place], [address], [place] [facility] 08/20/2018 15:20:32 10/10/2018 text/html He is here today for a lumbar epidural steroid injection under fluoroscopic guidance. Sallie Kaplan MD [address] [facility] , [address], [place], [address], [place] [facility] 10/12/2018 09:58:53
--- OUTSIDE RECORDS SUMMARY | 2024-09-17 08:01 | XMS_ITS ---
Author Organization [facility] Address [address] [place] [address] Care Team Providers Care Reservoir Engineering Advisor Name Role Phone Yan Rose MD Primary Care Provider Lee Marie Unavailable [phone] ALLERGIES Allergen (clinical drug ingredient) Drug/Non Drug Allergy documented on EMR Reaction Allergy Type Onset Date Status seasonal (uncoded) Unknown Allergy A ctive REASON FOR VISIT Patient presents today for a colon screening MEDICATIONS Medication SIG (Take, Route, Frequency, Duration) Notes Start Date End Date Status Metoprolol Succinate ER 25 MG 1 tablet Orally twice a day Active Simvastatin 20 MG 1 tablet in the even ing Orally Once a day Active Vitamin D 50 MCG (1999 UT) 1 tablet Oral ly Once a day for 30 day(s) Active Doxazosin Mesylate 2 MG 1 tablet Orally Once a day Active amLODIPine Besylate 5 MG TAKE 1 TABLET B Y MOUTH EVERY DAY Oral for 90 Active Multi Vitamin/Minerals Orally Active Losartan Potassium 50 MG 1 tablet Orally Once a day Active Aspir-81 81 MG 1 tablet Orally Once a day Active SOCIAL HISTORY Sex Assigned At : Social History Observation Description Sex Assigned At Unknown Alcohol Screen Question Answer Notes Did you have a drink contain ing alcohol in the past year? Yes How often did you have a dri nk containing alcohol in the past year? 4 or more times a week (4 points) How many drinks did you have on a typical day when you were drinking in the past year? 1 or 2 drinks (0 point) How often did you have 6 or more drinks on one occasion in the past year? Never (0 point) Points 4 Interpretation Positive PROBLEMS Problem Type ICD Code Onset Dates Problem Status W/U Status Risk SNOMED Code Notes Problem History of adenomatous polyp of colon (Z86.010) Active confirmed 670399507 Problem Family history of colon cancer (Z80.0) Active confirmed 466486691 Problem Colon cancer screening (Z12.11) Active confirmed 002504581 Problem Aspirin long-term use (Z79.82) Active confirmed 648577788087844 VITAL SIGNS BMI 33.17 kg/m2 08/18/2023 Blood pressure systolic 000 mm Hg 08/18/19 24 Blood pressure diastolic 00 mm Hg 024 Height 71.5 in 08/18/2023 Temperature 98.2 degrees Fahrenheit 08/18/19 24 Weight 241 lb 4 oz lbs 08/18/2023 Encounters Encounter Location Date Provider Diagnosis [facility] [address] [place] [address] 08/18/2023 Lee Yost History of adenomato us polyp of colon Z86.010 ; Aspirin long-term use Z79.82 ; Family history of colon cancer Z80.0 and Colon cancer screening Z12.11 ASSESSMENTS Encounter Date Diagnosis Assessment Notes Treatment Notes Treatment Clinical Notes 08/18/2023 History of adenomatous polyp of colon (ICD-10 - Z86.010) Stop aspirin for three days before the colonoscopy 08/18/2023 Aspirin long-term use (ICD-10 - Z79.82) 08/18/2023 Family history of colon cancer (ICD-10 - Z80.0) 08/18/2023 Colon cancer screening (ICD-10 - Z12.11) PLAN OF TREATMENT Treatment Notes Assessment Notes History of adenomatous polyp of colon St op aspirin for three days before the colonoscopy Future Test Test Name Order Date COLONOSCOPY 08/18/2023 Next Appt Details Follow Up: prn, Reason: Progress Notes * Examination Category Sub-Category Detail Notes General Examination GENERAL APPEARANCE: pleasant , well nourished, well developed, in no acute distress EYES: sclera non-icteric NECK/THYROID: no cervical lymphade nopathy, neck supple HEART: S1, S2 normal LUNGS: clear to auscultatio n bilaterally ABDOMEN: normal bowel sounds, no guarding or rigidity, no hepatosplenomegaly, no masses palpable, soft, nontender, nondistended. NEUROLOGIC: alert and oriented SKIN: nonjaundiced, no spi lisette angiomata. EXTREMITIES: no edema ORAL CAVITY: mucosa moist
--- OUTSIDE RECORDS SUMMARY | 2024-09-17 08:02 | XMS_ITS | Patient Health Record ---
Author Organization [facility] Address [address] [place] [address] Care Team Providers Care Manager Hydraulic Name Role Phone Yan Rose MD Primary Care Provider Lee Marie Unavailable [phone] ALLERGIES Allergen (clinical drug ingredient) Drug/Non Drug Allergy documented on EMR Reaction Allergy Type Onset Date Status seasonal (uncoded) Unknown Allergy A ctive REASON FOR REFERRAL Referred Organization [facility] Referred Provider Lee Yost Referred Address [address],[place], [place],[address],[place] Referred Provider Specialty Gastroentero logy General Notes Erendira Hackett 024 04:20:59 PM EDT > PT NOW HAS MEDICARE AND [employer] Referral Priority Routine MEDICATIONS Medication SIG (Take, Route, Frequency, Duration) Notes Start Date End Date Status Metoprolol Succinate ER 25 MG 1 tablet Orally twice a day Active Simvastatin 20 MG 1 tablet in the even ing Orally Once a day Active Vitamin D 50 MCG (1999) 1 tablet Oral ly Once a day for 30 day(s) Active Multi Vitamin/Minerals Orally Active Losartan Potassium 50 MG 1 tablet Orally Once a day Active Doxazosin Mesylate 2 MG 1 tablet Orally Once a day Active Aspir-81 81 MG 1 tablet Orally Once a day Active amLODIPine Besylate 5 MG TAKE 1 TABLET B Y MOUTH EVERY DAY Oral for 90 Active IMMUNIZATIONS Vaccine Route Administration Date Status Comme nts Flu vaccine no Preserv 3 and > Unknown 05/23/2017 Admin istered Influenza Unknown 05/07/2020 Administered Influenza Unknown 04/25/2023 Administered SOCIAL HISTORY Sex Assigned At : Social [...] W/U Status Risk SNOMED Code Notes Problem Colon cancer screening (Z12.11) Active confirmed 406890695 Problem Rectal bleeding (K62.5) Active confirmed Rectal bleeding (67825111) Problem History of adenomatous polyp of colon (Z86.010) Active confirmed 681103597 Problem Personal history of colonic polyps (Z86.010) Active confirmed History of poly p of colon (situation) (645595136) Problem Diverticulosis of large intestine without perforation or abscess without bleeding (K57.30) Active confirmed Diverticul ar disease of colon (845456327) Problem Aspirin long-term use (Z79.82) Active confirmed 852173400149243 Problem Family history of colon cancer (Z80.0) Active confirmed 580562303 Problem Heme + stool (R19.5) Active confirmed 29804328 Problem Hypertension, unspecified type (I10) Active confirmed 79861353 Encounters Encounter Location Date Provider Diagnosis [facility] [address] [place], [place] [id number] 11/24/2023 Lee Yost Encounter for screen ing colonoscopy Z12.11 ; Personal history of colonic polyps Z86.010 ; Family history of colon cancer Z80.0 ; Diverticulosis of large intestine without perforation or abscess without bleeding K57.30 and Other hemorrhoids K64.8 [facility] [address] [place] [address] 01/02/2024 Lee Yost ASSESSMENTS Encounter Date Diagnosis Assessment Notes Treatment Notes Treatment Clinical Notes 11/24/2023 Encounter for screening colonoscopy (ICD-10 - Z12.11) 11/24/2023 Personal history of colonic polyps (ICD-10 - Z86.010) 11/24/2023 Family history of colon cancer (ICD-10 - Z80.0) 11/24/2023 Diverticulosis of large intestine without perforation or abscess without bleeding (ICD-10 - K57.30) 11/24/2023 Other hemorrhoids (ICD-10 - K64.8) PLAN OF TREATMENT Future Test Test Name Order Date COLONOSCOPY 11/13/2014 COLONOSCOPY 04/11/2018 COLONOSCOPY 08/18/2023 Insurance Providers Payer Name Payer Address Payer Phone Subscriber Number Group Number Insured Name Patient Relationship to Insured Coverage Start Date Coverage End Date MEDICARE OF [place] [address] [place] [address] [id number] WALT VUONG Self - patient is the insured [employer] ATT[employer] CLAIMS [address] [place] [address] [id number] WALT VUONG Self - patient is the insured MEDICAL (GENERAL) HISTORY Medical History History ICD Code Screening Colonoscopies in and in 08/2009--negative except for a hyperplastic polyp in 2003--he was noted to have some mild sigmoid diverticulosis and small internal hemorrhoids; negative colonoscopy in 02/2015 TIA's Hyperlipidemia Denies NE,DM,CVA,Lung disease,renal dise ase HTN Gout Pfzbnzxhkovr-[id number] episode s--most recent episode was in September of 2014 -he was in the hospital overnight--his CAT scan described some minimal pancreatitis in the area of the pancreatic head, but no sign of any pancreatic mass--gallbladder is described as normal on the CAT scan--his liver profile was normal at that time, as were his triglycerides; he had his original episode in 2009--a gallbladder ultrasound was negative at that time Colonoscopy in 06/2018 with a small tubular adenoma, internal hemorrhoids, and diverticulosis Surgical History Surgery Date(Month/Year) Back surgery Hand surgery Shoulder surgery-right 12/2017 Hip replacement right 04/2019 Back surgery 12/2018 Torn Tolstoy's tendon 08/2018 Bilateral foot surgery 2020
--- OUTSIDE RECORDS SUMMARY | 2024-09-17 08:02 | XMS_ITS ---
Author Organization [facility] Address [address] [place] [address] Care Team Providers Care Home Energy Consultant Supervisor Name Role Phone Yan Rose MD Primary Care Provider Unavaila Lee Harris [phone] REASON FOR VISIT colon screening Encounters Encounter Location Date Provider Diagnosis [facility] [address] [place] [address] 01/02/2024 Lee Yost PLAN OF TREATMENT No Information
--- OUTSIDE RECORDS SUMMARY | 2024-09-17 08:02 | XMS_ITS ---
Author Organization [facility] Address [address] [place] [address] Care Team Providers Care Dance Professor Name Role Phone Yan Rose MD Primary Care Provider Mandeepa Lee Harris Unavailable [phone] REASON FOR VISIT screening,hx polyps,fam hx colon ca PROBLEMS Problem Type ICD Code Onset Dates Problem Status W/U Status Risk SNOMED Code Notes Problem Personal history of colonic polyps (Z86.010) Active confirmed History of polyp of colon (situation) (796341102) Problem Diverticulosis of large intestine without perforation or abscess without bleeding (K57.30) Active confirmed Diverticul ar disease of colon (094977146) Encounters Encounter Location Date Provider Diagnosis [facility] [address] [place], [place] [id number] 11/24/2023 Lee Yost Encounter for scre ening colonoscopy Z12.11 ; Personal history of colonic polyps Z86.010 ; Family history of colon cancer Z80.0 ; Diverticulosis of large intestine without perforation or abscess without bleeding K57.30 and Other hemorrhoids K64.8 ASSESSMENTS Encounter Date Diagnosis Assessment Notes Treatment Notes Treatment Clinical Notes 11/24/2023 Encounter for screening colonoscopy (ICD-10 - Z12.11) 11/24/2023 Personal history of colonic polyps (ICD-10 - Z86.010) 11/24/2023 Family history of colon cancer (ICD-10 - Z80.0) 11/24/2023 Diverticulosis of large intestine without perforation or abscess without bleeding (ICD-10 - K57.30) 11/24/2023 Other hemorrhoids (ICD-10 - K64.8) PLAN OF TREATMENT No Information
[2024-09-17 10:08] LABS: MANUAL DIFF FLAG NO
[2024-09-17 10:30] LABS: Basophils Absolute Auto 0.1 X10*3/uL (0.0-0.2); Basophils Percent Auto 1.1 % (0-2); Eosinophils Absolute Auto 0.3 X10*3/uL (0.0-0.4); Eosinophils Percent Auto 6.5 % (0-4); Hematocrit 34.6 % (42.0-52.0); Hemoglobin 12.2 g/dl (14.0-18.0); Imm Gran Abs Auto 0.01 X10*3/uL (0.00-0.03); Imm Gran Pct Auto 0.2 % (0.0-0.4); Lymphocytes Absolute Auto 1.4 X10*3/uL (1.2-4.9); Lymphocytes Percent Auto 30.5 % (20-40); Mean Corpuscular HGB Conc 35.3 g/dl (31.0-36.0); Mean Corpuscular Hemoglobin 31.9 pg (27.0-33.0); Mean Corpuscular Volume 90.6 fL (80.0-98.0); Mean Platelet Volume 10.5 fL (9.4-12.4); Monocytes Absolute Auto 0.4 X10*3/uL (0.1-1.2); Monocytes Percent Auto 8.9 % (2-11); Neutrophils Absolute Auto 2.4 x10*3/uL (2.0-8.3); Neutrophils Percent Auto 52.8 % (45-73); Platelet Count 212 X10*3/uL (160-400); Red Blood Count 3.82 X10*6/uL (4.60-5.80); Red Cell Distribution Width 12.5 % (11.0-16.0); White Blood Count 4.6 X10*3/uL (4.8-10.8)
[2024-09-17 10:54] LABS: Alanine Aminotransferase 37 U/L (0-40); Alkaline Phosphatase 39 U/L (39-117); Anion Gap 11 (12-20); Aspartate Amino Transferase 38 U/L (5-37); Bilirubin Total 0.6 mg/dL (0.0-1.0); Blood Urea Nitrogen 12 mg/dL (9-16); Calcium 8.6 mg/dL (8.4-10.2); Carbon Dioxide 24 mmol/L (22-29); Chloride 109 mmol/L (96-108); Cholesterol 166 mg/dL (<200); Estimated Glomerular Filt Rate > 60; Glucose Fasting 130 mg/dL (60-99); HDL Cholesterol 51 mg/dL (>40); LDL Cholesterol Calculated 86 mg/dL (<100); Potassium 3.7 mmol/L (3.3-5.1); Sodium 140 mmol/L (135-145); Total Protein 6.8 g/dL (6.5-8.0); Triglycerides 146 mg/dL (<150)
[2024-09-17 10:59] LABS: Prostate Specific Antigen Scr 3.79 ng/mL (<0.05-4.0)
== END 2024-09-17 07:59 | disposition home or self-care (01) ==
LOC: HO.HMGCLDS 07:58
PROVIDERS: PCP Internal Medicine; Visit Provider Internal Medicine
DX: Z00.00 Encounter for general adult medical examination without abnormal findings (principal); N40.0 Benign prostatic hyperplasia without lower urinary tract symptoms; I10 Essential (primary) hypertension; Z12.5 Encounter for screening for malignant neoplasm of prostate
CPT/HCPCS: 36415; 80053; 80061; 84153; 85025

== ENCOUNTER 2024-11-10 18:10 | Emergency (ER) | payer MEDICARE, SELFPAY ==
[2024-11-10 19:05] VITALS: BP 130/69; PULSE 68; RESP 16; TEMP 36.6; O2SAT 95; BMI 32.0
--- NOTE | 2024-11-10 19:05 | ED_ITS ---
HPI - General Adult General Chief complaint: Extremity Injury, Lower Stated complaint: Lac on right foot Time Seen by Provider: 11/10/24 19:06 Source: patient and family (patient's ) Mode of arrival: ambulatory Limitations: no limitations History of Present Illness ED Provider: Maryjo Norton PA-C HPI narrative: Patient is a 74 year old assigned male at with a history of non-diabetic neuropathy presenting to the emergency department today with a right 3rd toe laceration. Patient states that a few hours ago he was cutting his toe nail, didn't realized he had missed his nail, and cut a piece of his toe off. Patient states that he has been bleeding ever since and has not been able to stop it. Patient denies any dizziness, lightheadedness, abdominal pain, nausea, vomiting, fever, chills, blurry vision, double vision, loss of vision, chest pain, difficulty breathing, shortness of breath, back pain, night sweats, pain with urination, increased urinary frequency, increased urinary urgency, blood in his urine or stool, syncope or a near syncopal episode, bowel incontinence, bladder incontinence, or any other complaints at this time. Onset (ago): hour(s) Location: right (3rd toe) Relieving factors: none Exacerbating factors: none Associated symptoms: denies other symptoms Treatments prior to arrival: other (bandage) Related Data Home Medications ?Medication ?Instructions ?Recorded ?Confirmed amlodipine 5 mg tablet 5 mg PO DAILY 05/25/20 11/24/23 doxazosin 2 mg tablet 2 mg PO BEDTIME 05/25/20 11/24/23 metoprolol tartrate 25 mg tablet 25 mg PO BID 05/25/20 11/24/23 simvastatin 20 mg tablet 20 mg PO DAILY 05/25/20 11/24/23 Allergies Allergy/AdvReac Type Severity Reaction Status Date / Time amoxicillin [From Augmentin] AdvReac Diarrhea Verified 11/10/24 19:09 clavulanic acid AdvReac Diarrhea Verified 11/10/24 19:09 [From Augmentin] Review of Systems 2 Constitutional: Constitutional: Reports no additional constitutional complaints, Denies chills, Denies fever(s) and Denies night sweats Eyes: Eyes: Reports no additional eye complaints, Denies blurry vision, Denies change in vision, Denies diplopia, Denies eye discharge, Denies loss of vision and Denies eye pain ENT: Denies dizziness Cardiovascular: Cardiovascular: Reports no additional cardiovascular complaints, Denies chest pain, Denies lightheadedness, Denies Loss of Consciousness and Denies dyspnea Respiratory: Respiratory: Reports no additional respiratory complaints and Denies dyspnea Gastrointestinal: Gastrointestinal: Reports no additional gastrointestinal complaints, Denies abdominal pain, Denies melena, Denies hematochezia, Denies change in bowel habits and Denies change in stool character Genitourinary: Genitourinary: Reports no additional male genitourinary complaints, Denies hematuria, Denies oliguria, Denies difficulty urinating, Denies dysuria, Denies urinary frequency, Denies urinary hesitancy, Denies urinary incontinence and Denies urinary urgency Musculoskeletal: Musculoskeletal: Reports no additional musculoskeletal complaints, Denies numbness and Denies tingling Comments: right 3rd toe laceration Neurologic: Denies dizziness, Denies loss of vision, Denies numbness and Denies tingling Psychiatric: Psychiatric: Reports no additional psychiatric complaints Endocrine: Endocrine: Reports no additional endocrine complaints Hematologic/Lymphatic: Hematologic/Lymphatic: Reports no additional hematologic/lymphatic complaints Allergic/Immunologic: Allergic/Immunologic: Reports no additional allergic/immunologic complaints PMFSH Past Medical History Attestation statement: The following information was validated with the patient. (all information validated with the patient's ) Source: old records reviewed, obtained from family (patient's provided additional history and confirmed the history provided by the patient. ) and nursing notes reviewed Medical History Finger mass, right Skin cancer Gout Arthritis TIA (transient ischemic attack) On beta mango at home Pre-diabetes Elevated cholesterol BPH (benign prostatic hyperplasia) Back pain Hypertension Surgical History Hx of hammer toe correction S/P Achilles tendon repair History of back surgery Hx of colonoscopy History of total right hip arthroplasty Social History Social History Patient Tobacco Use Status: Never used Tobacco Advance Directives: No Advance Directives Information Provided: Yes Do you have a plan to hurt others: No Plan Physical Exam ED Vital Signs: Vital Signs - 24 hr 11/10/24 19:05 11/10/24 19:48 Temperature 97.8 F 97.8 F Pulse Rate 68 68 Respiratory Rate 16 16 Blood Pressure 130/69 130/69 Pulse Oximetry 95 95 Oxygen Delivery Method Room Air Room Air BMI result Body Mass Index 32.0 Const General: cooperative, no acute distress, alert and awake Nutritional Appearance: well nourished Orientation/consciousness: patient oriented x3 Limitations: no limitations HENMT Head: Yes normal to inspection and Yes atraumatic Ears: hearing grossly normal bilaterally and external ears normal General nose exam: Normal external nose present, no nasal discharge noted and no epistaxis Face and sinus: Yes normal facial exam, No abrasion and No laceration Mouth: Normal oral and palatal mucosa present, no drooling and no muffled voice Eyes General: appearance normal, both eyes and all related structures Periorbital: periorbital findings normal Eyelids: Yes eyelids normal Conjunctivae: conjunctivae normal Pupils: Equal, round and reactive pupils present EOM: EOMs intact bilaterally Neck Neck: Yes normal visual inspection, Yes full ROM and Yes no lymphadenopathy Chest Chest palpation & inspection: normal inspection of the chest Resp Effort & Inspection: normal respiratory effort and able to speak in complete sentences GI Inspection: Yes normal to inspection Neuro General: patient oriented x3, moves all extremities and CN's II-XI intact bilaterally Cranial nerves: Yes Equal, round and reactive pupils present Cognition (Neuro): normal cognition Extrem General: Yes full ROM and Yes capillary refill normal Ankle/foot/toe images: 2 1. skin avulsion present with active oozing of dark red blood Psych Appearance: grossly normal Mental Status: mental status grossly normal Affect: normal affect Attitude: cooperative Thought process: Normal thought process present Thought content: Normal thought content present Insight: Good insight present (Psych) Procedures Laceration Laceration 1: Site: other (3rd toe) Side (If applicable): right Description: irregular Depth: simple, single layer Pre-repair: irrigated extensively and deep structures intact Skin layer closed with: other (surgicell) Size (cm): other (surgicell) Technique: other (surgicell) Subcutaneous layer closed with: other (surgicell) Orthopedic Splinting/Casting Injury #1: Side: right Lower Extremity Injury Location: toe Lower Extremity Immobilizer: boot orthosis Medical Decision Making Medical Decision Making MDM Narrative: Patient is a 74 year old assigned male at with a history of non-diabetic neuropathy presenting to the emergency department today with a right 3rd toe laceration. Patient's physical exam was as noted in the physical exam portion of this note. I explained my physical exam findings to the patient and the patient's . I answered all questions asked by the patient and the patient's . Patient's wound was not able to be manually closed as the skin has been completely removed. I applied surgicell to the area with an outer layer of gauze and that appropriately stopped the bleeding. I applied a bandage to the area, without incident. Patient's PMS was intact prior to and after surgicell + bandage placement. I placed the patient in a post-op shoe for better support of the toe when ambulating. I stressed the importance of the patient removing the surgicell + bandage in 3 days. I stressed the importance of the patient taking his medication as directed (either prescribed or as the over the counter packaging recommends). I stressed the importance of the patient following up with his primary care provider and the wound center. I stressed the importance of the patient returning to the emergency department immediately if his symptoms were to worsen or if he were to develop any dizziness, shortness of breath, difficulty breathing, chest pain, blurry vision, loss of vision, nausea, vomiting, abdominal pain, fever, chills, back pain, or any other complaints. Patient and the patient's verbalized agreement and understanding with this treatment plan and discharge. Differential Diagnosis Differential Diagnoses: The differential diagnosis associated with the presentation includes Skin avulsion Skin laceration Admission/Observation Consideration of admission/observation: Escalation of care including admission/observation considered Patient would have been admitted to the hospital had his clinical presentation warranted hospital admission. Independent Historian Clinical information obtained from an independent historian. History obtained from or confirmed by: Spouse (patient's provided additional history and confirmed the history provided by the patient.) Discharge Plan Discharge Clinical Impression: Laceration of toe Patient Disposition: Home, Self-Care Instructions: Laceration (DC) Additional Instructions: Leave your bandage in place for 3 days. Do NOT get the affected area wet. Follow up with your primary care provider and given the nature of the wound - you should follow up with the wound center. Return to the emergency department immediately if your symptoms worsen or if you develop any numbness, tingling, dizziness, shortness of breath, difficulty breathing, chest pain, blurry vision, loss of vision, nausea, vomiting, abdominal pain, fever, chills, back pain, or any other complaints. Please see the information below about our Patient Portal. If you are not yet enrolled in the [facility] Patient Portal, you will receive an enrollment email invitation following your visit to any [facility] setting. You may also self-enroll in the Patient Portal by visiting our website: [email or web address] The following information is required to access the Patient Portal: - Your [facility] Medical Record Number - Your personal home email address (must match what is in your electronic medical record, Registration staff can assist with this) - Name - Date of Capabilities of the Patient Portal: - Message some providers - View upcoming appointments - Access your health summary, medical history, and visit history - View current conditions and allergies - View procedure and lab results - View your medications, including guidelines, side effects, and precautions - Complete pre-appointment questionnaires requested by your provider - Ready summary reports of your office visits and procedures To access the Patient Portal Mobile [employer], follow these directions: - Search [employer] in the [employer] Store or [employer] Store - Download the Krystal - Search for [facility] - Enter your login/password Prescriptions: No Action amlodipine 5 mg Tablet 5 mg PO DAILY simvastatin 20 mg Tablet 20 mg PO DAILY doxazosin 2 mg Tablet 2 mg PO BEDTIME metoprolol tartrate 25 mg Tablet 25 mg PO BID Referrals: [facility] Family Medicine [Provider Group] (Call to establish and follow up with a primary care provider. ) [facility] Primary [facility] [Provider Group] (Call to establish and follow up with a primary care provider. ) [facility] [Provider Group] (Call to establish and follow up with a primary care provider. ) [facility] Primary [facility] [Provider Group] (Call to establish and follow up with a primary care provider. ) [facility] Wound Care Management [Provider Group] (Call to establish and follow up with the wound center. ) Interventions: ED Discharge Assessment Last Done: 11/10/24 19:48 Discharge Date/Time: 11/10/24 19:48 Print Language: Malaysian
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
--- OUTSIDE RECORDS SUMMARY | 2024-11-10 19:35 | XMS_ITS ---
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 Medications Medication SIG (Take, Route, Frequency, Duration) Notes Start Date End Date Status Augmentin 875-125 MG 1 tablet Orally true ry 12 hrs for 10 day(s) 12/16/2017 Not-Taking Losartan Potassium 25 MG Orally 2 x a day Not-Taking Keflex 500 MG 1 capsule Orally true ry 12 hrs for 10 days 01/20/2020 Not-Taking Keflex 500 MG 1 capsule Orally true ry 12 hrs for 10 days 05/29/2020 Not-Taking Cephalexin 500 MG 1 capsule Orally true ry 12 hrs for 10 day(s) Not-Taking Simvastatin 20 MG 1 tablet every eveni ng Orally Once a day for 30 day(s) Active Augmentin 500-125 MG 1 tablet Orally true ry 8 hrs for 10 days 01/19/2020 Not-Taking Doxycycline Hyclate 100 MG 1 capsule Orally Once a day for 10 day(s) 01/14/2021 Not-Taking Walking Boot/Pneumatic As directed Wear Daily for Until further notice Not-Taking Physical Therapy . . . 2-3x/week for 3- 4 weeks Not-Taking amLODIPine Besylate 5 MG 1 tablet Orally Once a day for 30 day(s) Active Aspirin 81 MG 1 tablet Orally Once a day Active Metoprolol Tartrate 25 MG 1 tablet with food Orally Twice a day Active Doxazosin Mesylate 2 MG 1 tablet Orally Once a day Active Social History Tobacco Use: Social History Observation Description Date Details (start date - stop date) Never Smoker NA - NA Tobacco Use/Smoking Question Answer Notes Are you a: nonsmoker Additional Findings: Tobacco Non-User Current no n-smoker Alcohol Screen Question Answer Notes Did you have a drink containing alcohol in the p ast year? Yes Points 0 Interpretation Negative Tobacco use other than smoking: Question Answer Notes Are you an other tobacco user? No Vital Signs Height 6 ft in 02/05/2024 Weight 230 lbs 02/05/2024 BMI 31.19 kg/m2 02/05/2024 Blood pressure systolic 120 mm Hg 02/05/20 24 Blood pressure diastolic 80 mm Hg 024 Encounters Encounter Location Date Provider Diagnosis [facility] [address] [address] 02/05/2024 Efrain Reina Other hammer toe(s) (acquired), left [...] Treatment Notes Treatment Clinical Notes Section Notes 02/05/2024 Other hammer toe(s) (acquired), left foot (ICD-10 - M20.42) 02/05/2024 Tinea unguium (ICD-10 - B35.1) 02/05/2024 Other hammer toe(s) (acquired), right foot (ICD-10 - M20.41) 02/05/2024 Primary osteoarthritis, left ankle and foot (ICD-10 - M19.072) 02/05/2024 Pain in left toe(s) (ICD-10 - M79.675) 02/05/2024 Ingrowing nail (ICD-10 - L60.0) 02/05/2024 Pain in right toe(s) (ICD-10 - M79.674) 02/05/2024 Xerosis cutis (ICD-10 - L85.3) 02/05/2024 Pain in left foot (ICD-10 - M79.672) Plan Of Treatment Next Appt Details Follow Up: 3 Months, Reason: Provider Name:Christina Ruggiero venkatesh, 12/02/2024 03:00:00 PM, [address] [place], [address], Procedure Notes * Category Sub-Category Detail Notes [...] as necessary. Patient chooses, no pharmaceutical tx ([id number]) Progress Notes * Bobo VUONG SDOB:1950 (73 yo M)Acc No.[id number]:02/05/2024 Progress Note Patient:?Bobo Vuong Provider:?Efrain Reina DPM :1950???Age:73 Y???Sex:Male Tristen e:02/05/2024 Address:[address] [place], [place] [id number] Pcp:Yan Rose MD Subjective: * Chief Complaints: [...] HT Repair R 2,3, Bone biopsy R2nd 03/26/20207293XWB1-3, Skin Ulcer L, Bone Biopsy L 05/28/2020 [...] drink containing alcohol in the past year??Yes ?Points?0 ?Interpretation?Negative ???Miscellaneous:?Caffeine: yes, frequency:, 1-2 cups per day. ?Children: yes, 2. ?Exercise: yes, walking. ?Marital status: . 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 * Medications:?TakingAspirin 8 1 MG Tablet Delayed [...] - Side Effectsyes[Allergies Verified] Objective: * Vitals:?Ht: 6 ft, Wt:230, BM I:31.19, Shoe size:11.5, BP:120/80 mm Hg. * Examination: ???General Examination: ?GENERAL APPEARANCE:?Reveals a pleasant, alert, well nourished, well developed, well hydrated individual, who demonstrates proper attention to hygene/body habitus, and is in no acute distress.?ORIENTED:?person, place, and time.?Dermatologic: ?SKIN FINDINGS:? Skin shows sign(s) of, dryness, scaling, in a stocking fashion, no fissure(s) present, B/L.?Vascular: ?DP PULSES:? 08/10, B/L.?PT PULSES:? 08/10, B/L.?CAPILLARY FILL TIME:? 3 secs. per digit, B/L.?SKIN TEMPERTURE GRADIENT OF THE LOWER EXTERMITIES:? normal, warm to cool, proximal to distal, B/L.?PIGMENTATION:? normal, B/L- NO discoloration noted to toe on the left foot.?EDEMA:? 08/10, B/L, Ankle(s), Leg(s).?Neurological: ?SENSORY:?Neurological exam demonstrates, [...] Lateral nail border, TA.? Assessment: * Assessment: 1.?Other hammer toe(s) (acqu ired), left foot - M20.42 (Primary)?2.?Tinea unguium - B35.1?3.?Other hammer toe(s) (acquired), right foot - M20.41?4.?Primary [...] as necessary. Patient chooses, no pharmaceutical tx ([id number]).? * Procedure Codes:?05055 DEBRI DE NAIL, 6 OR MORE, Modifiers: XS * Preventive Medicine:? ??Counseling:?Discussion:?-12: Office or other outpatient visit for the evaluation and management of an established patient, which required a medically appropriate history and/or examination and STRAIGHTFORWARD level of MEDICAL DECISION MAKING, 1 SELF-LIMITED OR MINOR PROBLEM, MINIMAL- NO AMOUNT/COMPLEXITY OF DATA TO BE REVIEWED/ANALYZED, AND MINIMAL RISK OF COMPLICATION/MORBIDITY. The visit on the day of the encounter encompassed interpreting the data and educating the patient as to the nature of their condition, treatment options available according to their individual PMH, meds, allergies, and overall health/living conditions, as well as any potential risks or complications that may occur from a failure to adhere to, and participate in, the recommended course of therapy. The discussion included a complete verbal, and/or written explanation of the examination results, any x-rays taken, the proposed diagnosis, and outline of the treatment plan. A schedule for future care needs was also explained. The patient verbalized an understanding of the instructions at this time and agreed to be an active participant in their treatment. If the patient should think of any questions or concerns after the visit, I have encouraged the patient to call the office--pt to bring in afo brace next visit and continue with daily usage; continue with tayco brace left leg for control of rf adn ankle valgus.? * Follow Up:?3 Months * Images: * Sign off status: Completed true * Provider:Shannon Reina DPM Date:? 024 Generated for Steve mosher/Cecilia/Gerardo on:?11/10/2024 07:35 PM EDT History and Physical Notes * [...] and t karie Vascular DP PULSES (B): 1/4, B/L PT PULSES (B): 1/4, B/L CAPILLARY FILL TIME: 3 secs. per [...]
--- OUTSIDE RECORDS SUMMARY | 2024-11-10 19:36 | XMS_ITS | Data Portability ---
Author Organization [facility] Address [address] [facility] [address] [place] [address] Care Team Providers Care Stone Layer Name Role Phone RASTA COATS Referring Provider [phone] JUANA LUTZ Primary Care Provider Assessment Encounter [...] booked for the same. He needs a driver service technician on the day of the procedure. [email or web address] [...] He wishes to proceed. He needs a driver service technician on the day of the procedure. He [...] By Organization Details Last Modified Time 07/11/2018 17222 He was advised against bed rest lasting longer than four days and to continue activities as tolerated. [email or web address] Not available 07/12/2018 14:07:14 07/18/2018 66088 He was advised against bed rest lasting longer than four days and to continue activities as tolerated. [email or web address] Not available 07/19/2018 09:20:09 08/16/2018 52013 He was advised against bed rest lasting longer than four days and to continue activities as tolerated. [email or web address] Not available 08/16/2018 14:22:47 10/10/2018 09167 He was advised against bed rest lasting longer than four days and to continue activities as tolerated. [email or web address] Not available 10/11/2018 09:49:11 Reason for Referral None Reported. Problems Name Problem SNOMED Code Status Onset Date Resolution Date Notes Provider Name and Address Organization Details Recorded Time Lumbosacral radiculopathy 2080650 Active Sallie underwood MD [email or web address] , [address], [place], [address], [place] [facility] 8 15:00:27 Degeneration of lumbar intervertebral disc 32280816 Active Sallie underwood MD [email or web address] , [address], [place], [address], [place] [facility] 8 15:00:36 Lumbosacral spondylosis without myelopathy 63119315 Active Sallie underwood MD [email or web address] , [address], [place], [address], [place] [facility] 8 15:00:54 Spinal stenosis of lumbar region 34937811 Active Sallie underwood MD [email or web address] , [address], [place], [address], [place] [facility] 8 15:01:03 Problem Notes None recorded. Procedures Surgical History Date Name Laterality Status Provider Name and Address Organization Details Recorded Time 10/11/19 19 Lumbar Epidural steroid injection under fluoroscopic guidance completed Sallie Kaplan MD [email or web address] , [address], [place], [address], [place] [facility] 10/11/2018 09:49:54 07/18/20 18 Lumbar Epidural steroid injection under fluoroscopic guidance completed Sallie Kaplan MD [email or web address] , [address], [place], [address], [place] [facility] 07/19/2018 [...] Not Available No t Available Fluzone High-Dose 3320-4070 (PF) 180 mcg/0.5 mL intramuscul ar syringe [...] Updated DateTime 8 182.88 cm 31.2 kg/m2 514086. 25 g 74 /min 97 % 97 [...] Tobacco Smoking Status Never Smoker Sayra Marquez [facility], [place] [facility] 07/11/2018 15:09:11 What Is Your Level Of Alcohol Consumption? Occasional Information not available 07/11/2018 Are You Currently Employed? No Information not available 07/11/2018 Which Illicit Or Recreational Drugs Have You Used? 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 Information not available 07/11/2018 Live Alone Or [...] History Condition Response Neuropathy/Neuralgia Y Arthritis Y Hypertension Y High Cholesterol Y Past Encounters Encounter ID Performer Location Encounter Start Date Encounter Closed Date Diagnosis/Indication Diagnosis SNOMED-CT Code Diagnosis ICD10 Code Diagnosis Note [id number] Sallie Kaplan MD PAIN OFFICE [address] [place] [address] 07/11/2018 14:35:05 07/12/2018 14:21:32 Spinal stenosis of lumbar region 78707274 M48.061 Lumbosacra l radiculopathy 3511191 M54.17 Degenerati on of lumbar intervertebral disc 98846082 M51.36 Lumbosacra l spondylosis without myelopathy 35708038 M47.817 [id number] Sallie Kaplan MD PAIN OFFICE [address] [place] [address] 07/18/2018 08:31:36 07/19/2018 09:38:23 Spinal stenosis of lumbar region 90588537 M48.061 Lumbosacra l radiculopathy 3480902 M54.17 Degenerati on of lumbar intervertebral disc 48168493 M51.36 Lumbosacra l spondylosis without myelopathy 58983625 M47.817 [id number] Sallie Kaplan MD PAIN OFFICE [address] [place] [address] 08/16/2018 08:32:52 08/16/2018 15:17:26 Spinal stenosis of lumbar region 48006451 M48.061 Lumbosacra l radiculopathy 4754783 M54.17 Degenerati on of lumbar intervertebral disc 76566202 M51.36 Lumbosacra l spondylosis without myelopathy 15740922 M47.817 [id number] Sallie Kaplan MD PAIN OFFICE [address] [place] [address] 10/10/2018 08:35:41 10/11/2018 09:52:26 Spinal stenosis of lumbar region 73683507 M48.061 Lumbosacra l radiculopathy 7040247 M54.17 Degenerati on of lumbar intervertebral disc 90432160 M51.36 Lumbosacra l spondylosis without myelopathy 77952297 M47.817 Health Concerns Section Related Observation LastModified by Organization Detai ls LastModified Time None Recorded Concern Status LastModified by Organization Details LastModified Time None Recorded Advance Directives Directive None Recorded Payers Encounter Date Sequence Insurance Name Policy Number Policy Fuentes Covered Member ID Fuentes Member ID Guarantor Name 07/11/2018 1 [place] Bobo Benjamin [id number] Bobo Benjamin 07/11/2018 2 [place] [id number] Bobo Benjamin [id number] Bobo Benjamin 07/18/2018 1 [place] [employer] Bobo Benjamin [id number] Bobo Benjamin 07/18/2018 2 [place] [id number] Bobo Benjamin [id number] Bobo Benjamin 08/16/2018 1 [place] [facility] [place] Bobo Benjamin [id number] Bobo Benjamin 08/16/2018 2 [place] [id number] Bobo Benjamin [id number] Bobo Benjamin 10/10/2018 1 [place] Bobo Benjamin [id number] Bobo Benjamin 10/10/2018 2 [place] [id number] Bobo Benjamin [id number] Bobo Benjamin Notes Date Note Type Note Provider Name and Address Organization Details Recorded Time 07/11/2018 text/html Bobo Benjamin is a 68 year old man with complaints of low back pain radiating into right lower extremity. The pain started two years ago and is becoming greater over the past few months. 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 He describes the pain as a shooting [...] has trialed physical therapy at [facility] [place] [place] with some pain benefit. He had a course of medrol dose pack with some pain benefit. He is taking aleve for pain. Sallie Kaplan MD [address] [facility] , [address], [place], [address], [facility] - [facility] 07/17/2018 09:13:08 07/18/2018 text/html He is here today for a lumbar epidural steroid injection under fluoroscopic guidance. Sallie Kaplan MD [address] [facility] , [address], [place], [address], [place] [facility] 07/24/2018 08:37:30 08/16/2018 [...] or bowel incontinence. Sallie Kaplan MD [email or web address] , [address], [place], [address], [place] [facility] 08/20/2018 15:20:32 10/10/2018 text/html He is here today for a lumbar epidural steroid injection under fluoroscopic guidance. Sallie Kaplan MD [address] [facility] , [address], [place], [address], [place] [facility] 10/12/2018 09:58:53
--- OUTSIDE RECORDS SUMMARY | 2024-11-10 19:36 | XMS_ITS | Patient Health Record ---
Author Organization [facility] Address [address] [facility] [place] [address] Care Team Providers Care Living Skills Advisor Name Role Phone Yan Rose MD Primary Care Provider Christina High Unavailable [phone] Efrain Reina Unavailable [phone] Allergies Allergen (clinical drug ingredient) Drug/Non Drug Allergy documented on EMR Reaction Allergy Type Onset Date Status amoxicillin Amoxicillin diarrhea, upset stomach Drug Allergy Active Reason For Referral No Information Medications Medication SIG (Take, Route, Frequency, Duration) Notes Start Date End Date Status Doxazosin Mesylate 2 MG 1 tablet Orally Once a day Active Cephalexin 500 MG 1 capsule Orally true ry 12 hrs for 10 day(s) Not-Taking Metoprolol Tartrate 25 MG 1 tablet with food Orally Twice a day Active Simvastatin 20 MG 1 tablet every eveni ng Orally Once a day for 30 day(s) Active Physical Therapy . . . 2-3x/week for 3- 4 weeks Not-Taking Aspirin 81 MG 1 tablet Orally Once a day Active Losartan Potassium 25 MG Orally 2 x a day Not-Taking amLODIPine Besylate 5 MG 1 tablet Orally Once a day for 30 day(s) Active Augmentin 875-125 MG 1 tablet Orally true ry 12 hrs for 10 day(s) 12/16/2017 Not-Taking Keflex 500 MG 1 capsule Orally true ry 12 hrs for 10 days 01/20/2020 Not-Taking Walking Boot/Pneumatic As directed Wear Daily for Until further notice Not-Taking Doxycycline Hyclate 100 MG 1 capsule Orally Once a day for 10 day(s) 01/14/2021 Not-Taking Augmentin 500-125 MG 1 tablet Orally true ry 8 hrs for 10 days 01/19/2020 Not-Taking Keflex 500 MG 1 capsule Orally true ry 12 hrs for 10 days 05/29/2020 Not-Taking Immunizations Vaccine Route Administration Date Status Comme nts COVID-19 Moderna Vaccine Unknown 05/14/2021 Administere d 10/12/2020 ,11/12/2020 Social History Tobacco Use: Social History Observation [...] Are you an other tobacco user? No Problems Problem Type SNOMED Code ICD Code Onset Dates Problem Status W/U Status Risk Notes Problem Bilateral atherosclerosis of arteries of lower limbs (21447634269162255 ) Unspecified atherosclerosis of [place] arteries of extremities, bilateral legs (I70.203) Active confirmed Problem Bilateral peripheral neuropathy of lower limbs (08800362996856664 ) Neuropathy (G62.9) Active confirmed Vital Signs Blood pressure diastolic 70 mm Hg 08/08/2024 Height 6ft in 08/08/2024 Blood pressure systolic 135 mm Hg 08/08/2024 Weight 230 lbs 08/08/2024 BMI 31.19 kg/m2 08/08/2024 Procedures Procedure Date Ordered Date Performed Result Body Sit e 36114-CRODNZN NAIL, 6 OR MORE 08/08/2024 N/A Encounters Encounter Location Date Provider Diagnosis [facility] [place] [address] [place] [address] 02/05/2024 Efrain Reina Other hammer toe(s) (acquired), left foot M20.42 ; Tinea unguium B35.1 ; Other hammer toe(s) (acquired), right foot M20.41 ; Primary osteoarthritis, left ankle and foot M19.072 ; Pain in left toe(s) M79.675 ; Ingrowing nail L60.0 ; Pain in right toe(s) M79.674 ; Xerosis cutis L85.3 and Pain in left foot M79.672 [facility] [address] 05/06/2024 Efrain Reina Other hammer toe(s) (acquired), left foot M20.42 ; Tinea unguium B35.1 ; Other hammer toe(s) (acquired), right foot M20.41 ; Primary osteoarthritis, left ankle and foot M19.072 ; Pain in left toe(s) M79.675 ; Ingrowing nail L60.0 ; Pain in right toe(s) M79.674 ; Xerosis cutis L85.3 and Pain in left foot M79.[address] [address] 08/08/2024 Christina Delaney Pain in right toe(s) M79.674 ; Onychomycosis B35.1 and Pain in left toe(s) M79.675 Assessments Encounter Date Diagnosis (ICD Code) Assessment Notes Treatment Notes Treatment Clinical Notes Section Notes 02/05/2024 Other hammer toe(s) (acquired), left foot (ICD-10 - M20.42) 05/06/2024 Tinea unguium (ICD-10 - B35.1) 05/06/2024 Other hammer toe(s) (acquired), left foot (ICD-10 - M20.42) 08/08/2024 Pain in right toe(s) (ICD-10 - M79.674) 08/08/2024 Onychomycosis (ICD-10 - B35.1) 05/06/2024 Other hammer toe(s) (acquired), right foot (ICD-10 - M20.41) 02/05/2024 Tinea unguium (ICD-10 - B35.1) 02/05/2024 Other hammer toe(s) (acquired), right foot (ICD-10 - M20.41) 05/06/2024 Primary osteoarthritis, left ankle and foot (ICD-10 - M19.072) 08/08/2024 Pain in left toe(s) (ICD-10 - M79.675) 05/06/2024 Pain in left toe(s) (ICD-10 - M79.675) 02/05/2024 Primary osteoarthritis, left ankle and foot (ICD-10 - M19.072) 02/05/2024 Pain in left toe(s) (ICD-10 - M79.675) 05/06/2024 Ingrowing nail (ICD-10 - L60.0) 05/06/2024 Pain in right toe(s) (ICD-10 - M79.674) 02/05/2024 Ingrowing nail (ICD-10 - L60.0) 02/05/2024 Pain in right toe(s) (ICD-10 - M79.674) 05/06/2024 Xerosis cutis (ICD-10 - L85.3) 05/06/2024 Pain in left foot (ICD-10 - M79.672) 02/05/2024 Xerosis cutis (ICD-10 - L85.3) 02/05/2024 Pain in left foot (ICD-10 - M79.672) Plan Of Treatment Pending Test Test Name Order Date X ray : Foot, left 2V 08/17/2011 X ray : Foot, left 2V 12/18/2017 X ray : Foot, right 2V 12/18/2017 X ray : Foot, left 3V 08/10/2018 X ray : Foot, left 3V 02/12/2020 X ray : Foot, left 3V 06/01/2020 X ray : Foot, left 3V 06/15/2020 X ray : Foot, left 3V 04/20/2022 X ray : Foot, right 3V 04/20/2022 X ray : Foot, right 3V 03/30/2020 X ray : Foot, right 3V 04/08/2020 X ray : Foot, right 3V 04/20/2020 X ray : Foot, right 3V 05/13/2020 X ray : Foot, right 3V 01/27/2020 44266-BIKQNDH NAIL, 6 OR MORE 08/08/2024 06677- Debride <25 sq cm 01/25/2018 81315- Debride <25 sq cm 04/26/2018 04874- Debride <25 sq cm 09/05/2017 34374- Debride <25 sq cm 12/28/2017 63354- Debride <25 sq cm 01/11/2018 44539-LWHJAED SKIN/TISSUE 12/18/2017 39556-PIGHAOV SKIN/TISSUE 08/30/2017 15600-FJLAWWW SKIN/TISSUE 03/01/2018 04271 I&D ABSCESS- SIMPLE,SINGLE 021 56280 I&D ABSCESS- SIMPLE,SINGLE 020 34171-XZLJ SKIN LESIONS, 2 TO 4 09/30/19 20 72107-DZSD SKIN LESIONS, 2 TO 4 01/13/20 20 73051-FJNW SKIN LESIONS, 2 TO 4 03/07/20 19 42943-UACG SKIN LESIONS, 2 TO 4 06/20/20 19 10552-NMENKISX OF HEMATOMA/FLUID 019 42220-NQOZJZNL OF HEMATOMA/FLUID 019 00093-Nlqqhhrqj, Toes 01/11/2018 94049- Nail Unit Biopsy 12/18/2017 Next Appt Details Provider Name:Christina Ruggiero venkatesh, 12/02/2024 03:00:00 PM, [address] [place], [address], Insurance Providers Payer Name Payer Address Payer Phone Subscriber Number Group Number Insured Name Patient Relationship to Insured Coverage Start Date Coverage End Date Medicare [facility] [address] [facility] [place] [address] [id number] Bobo Benjamin Self - patient is the insured [employer] [address] [place] [address] [phone] [id number] Bobo Benjamin Self - patient is the insured Medical (General) History Medical History History ICD Code warts mumps measles Gout chicken pox back, hip, knee pain anemia High blood pressure Surgical History Surgery Date(Month/Year) back surgery 1997 ? shoulder - RT 12/09/2016 discectomy 12/2018 right hip replacement 04/2019 tendon repair- left ankle - akillies ten don 08/25 Skin ulcer R, HT Repair R 2,3, Bone biop sy R2nd 03/26/2020 HTL2-4, Skin Ulcer L, Bone Biopsy L 05/08 Hospitalization History Reason Date(Month/Year) EKG, Blood Work 03/09/20 [facility]- Disc Sx 12/2018
--- OUTSIDE RECORDS SUMMARY | 2024-11-10 19:37 | XMS_ITS ---
Author Organization [facility] Address [address] [place] [address] Care Team Providers Care Stamp Maker Name Role Phone Rose HARRISON, Yan Primary Care Provider Lee Marie [phone] REASON FOR VISIT colon screening Encounters Encounter Location Date Provider Diagnosis [facility] [address] [place] [address] 01/02/2024 Lee Yost Plan Of Treatment No Information Progress Notes * WALT VUONG SDOB:1950 (74 yo M)Acc No.[id number]:01/02/2024 Progress Notes Patient:?WALT VUONG Provider:?Lee Yost MD :1950???Age:73 Y???Sex:Male Tristen e:01/02/2024 Address:[address] [place] [address] [facility] Pcp:Yan Rose MD Subjective: * Chief Complaints: * ???1. Colon screening. * Medical History:? Objective: * Vitals:? Assessment: Plan: * Treatment: * * The named appointment provid er may or may not be the originator of this progress note, and it is not deemed complete until electronically signed by the appointment provider. Sign off status: Pending * Provider:?Lee Yost MD Date:? 024 Generated for Printi ng/Faxing/eTransmitting on:?11/10/2024 07:37 PM EDT
--- OUTSIDE RECORDS SUMMARY | 2024-11-10 19:37 | XMS_ITS ---
Author Organization [facility] Address [address] [place] [address] Care Team Providers Care Network Administrator Name Role Phone Yan Rose MD Primary Care Provider Lee Marie Unavailable [phone] Allergies Allergen (clinical drug ingredient) Drug/Non Drug Allergy documented on EMR Reaction Allergy Type Onset Date Status seasonal (uncoded) Unknown Allergy A ctive REASON FOR VISIT Patient presents today for a colon screening Medications Medication SIG (Take, Route, Frequency, Duration) [...] Orally Once a day Active Social History Alcohol Screen Question Answer Notes Did you [...] Never (0 point) Points 4 Interpretation Positive Section Notes: Nonsmoker; 1 glass of wine Q D Problems Problem Type SNOMED Code ICD Code Onset Dates Problem Status W/U Status Risk Notes Problem 844951124 History of adenomatous polyp of colon (Z86.010) Active confirmed Problem 720815145 Family history of colon cancer (Z80.0) Active confirmed Problem 151843154 Colon cancer screening (Z12.11) Active confirmed Problem 978579178119796 Aspirin long-term use (Z79.82) Active confirmed Vital Signs Temperature 98.2 degrees Fahrenheit 08/18/19 24 Blood pressure systolic 000 mm Hg 08/18/19 24 Blood pressure diastolic 00 mm Hg 024 Height 71.5 in 08/18/2023 Weight 241 lb 4 oz lbs 08/18/2023 BMI 33.17 kg/m2 08/18/2023 Encounters Encounter Location Date Provider Diagnosis [facility] [address] [place] [address] 08/18/2023 Lee Yost History of adenomato us polyp of colon Z86.010 ; Aspirin long-term use Z79.82 ; Family history of colon cancer Z80.0 and Colon cancer screening Z12.11 Assessments Encounter Date Diagnosis (ICD Code) Assessment Notes Treatment Notes Treatment Clinical Notes Section Notes 08/18/2023 History of adenomatous polyp of colon (ICD-10 - Z86.010) Stop aspirin for three days before the colonoscopy Overall, Walt appears quite well. Given his history of a tubular adenoma removed over 5 years ago, his family history of colon cancer in his mother, and his good clinical appearance, I did recommend a colonoscopy for further screening purposes. We did review the rationale for this in regard to colon cancer prevention. Full consent is obtained for this, including risks of bleeding and perforation. The procedure will be done with monitored anesthesia care. He was given the below instructions regarding adjustment of his medication for the procedure. Walt and his were very comfortable with this plan. Thank you again for allowing me to participate in Walt's care. I shall continue to keep you advised of his progress. 08/18/2023 Aspirin long-term use (ICD-10 - Z79.82) Overall, Walt appears quite well. Given his history of a tubular adenoma removed over 5 years ago, his family history of colon cancer in his mother, and his good clinical appearance, I did recommend a colonoscopy for further screening purposes. We did review the rationale for this in regard to colon cancer prevention. Full consent is obtained for this, including risks of bleeding and perforation. The procedure will be done with monitored anesthesia care. He was given the below instructions regarding adjustment of his medication for the procedure. Walt and his were very comfortable with this plan. Thank you again for allowing me to participate in Walt's care. I shall continue to keep you advised of his progress. 08/18/2023 Family history of colon cancer (ICD-10 - Z80.0) Overall, Walt appears quite well. Given his history of a tubular adenoma removed over 5 years ago, his family history of colon cancer in his mother, and his good clinical appearance, I did recommend a colonoscopy for further screening purposes. We did review the rationale for this in regard to colon cancer prevention. Full consent is obtained for this, including risks of bleeding and perforation. The procedure will be done with monitored anesthesia care. He was given the below instructions regarding adjustment of his medication for the procedure. Walt and his were very comfortable with this plan. Thank you again for allowing me to participate in Walt's care. I shall continue to keep you advised of his progress. 08/18/2023 Colon cancer screening (ICD-10 - Z12.11) Overall, Walt appears quite well. Given his history of a tubular adenoma removed over 5 years ago, his family history of colon cancer in his mother, and his good clinical appearance, I did recommend a colonoscopy for further screening purposes. We did review the rationale for this in regard to colon cancer prevention. Full consent is obtained for this, including risks of bleeding and perforation. The procedure will be done with monitored anesthesia care. He was given the below instructions regarding adjustment of his medication for the procedure. Walt and his were very comfortable with this plan. Thank you again for allowing me to participate in Walt's care. I shall continue to keep you advised of his progress. Plan Of Treatment Treatment Notes Assessment Notes History of adenomatous polyp of colon St op aspirin for three days before the colonoscopy Future Test Test Name Order Date COLONOSCOPY 08/18/2023 Next Appt Details Follow Up: prn, Reason: Progress Notes * WALT VUONG SDOB:1950 (73 yo M)Acc No.[id number]:08/18/2023 Progress Notes Patient:?WALT VUONG Provider:?Lee Yost MD :1950???Age:73 Y???Sex:Male Tristen e:08/18/2023 Address:[address] [id number] Pcp:Yan Rose MD Subjective: * Chief Complaints: * ???Patient presents today fo r a colon screening * HPI: ???incontinence:? I saw Walt in the office today for evaluation of his personal history of a tubular adenoma of the colon and need for colorectal cancer screening. He was accompanied by his . ?I last saw Walt in October of 2020. His last colonoscopy in June 2018 revealed only a small tubular adenoma. He does have a family history of colon cancer in his mother in her 50s. He currently feels very well. He enjoys a good appetite, without any significant heartburn or dysphagia. His bowel movements have been regular and without any signs of bleeding. He denies abdominal pain, jaundice, nor weight loss. ?He does have some prostate-related symptoms with frequent urination during the day and at night. * ROS:?General/Constitutional:?Change in appetite?denies.?Chills?denies.?Fatigue?denies.?Ophthalmologic:?Patient denies? Negative..?ENT:?Patient denies?Negative..?Respiratory:?Patient denies?No coughing/hemoptysis..?Cardiovascular:?Patient denies? No chest pain/orthopnea..?Gastrointestinal:?Comments?See HPI for details.?Genitourinary:?Patient denies? No dysuria/hematuria..?Incontinence?denies.?Musculoskeletal:?Patient denies? No specific arthralgias/myalgias..?Skin:?Patient denies?No rash/pruritus..?Neurologic:?Patient denies? No headaches/seizures..?Psychiatric:?Patient denies?Negative..? * Medical History:? * Surgical History:?Back surge ry Hand surgery Shoulder surgery-right 12/2017Hip replacement right 04/2019Back surgery 12/2018Torn [place]'s tendon 08/2018Bilateral foot surgery 2019 * Hospitalization/Major Diagno stic Procedure:?No Hospitalization History. * Family History:?Father: dece ased, diagnosed with Heart disease.?Mother: , colon cancer at age 52, diagnosed with Colon cancer.? Mother with colon cancer He thinks his father may have had pancreatitis as well. * Social History:?Tobacco Use:?Tobacco Use/Smoking?Are you a: nonsmoker.?Drugs/Alcohol:?Alcohol Screen?Did you have a drink containing alcohol in the past year??Yes,?How often did you have a drink containing alcohol in the past year??4 or more times a week (4 points),?How many drinks did you have on a typical day when you were drinking in the past year??1 or 2 drinks (0 point),?How often did you have 6 or more drinks on one occasion in the past year??Never (0 point),?Points?4,?Interpretation?Positive.?Miscellaneous:?Marital status: . 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 ???Nonsmoker; 1 glass of wine QD. * Medications:?TakingVitamin D 50 MCG (2000 UT) Tablet 1 tablet Orally Once a dayMetoprolol Succinate ER 25 MG Tablet Extended Release 24 Hour 1 tablet Orally twice a daySimvastatin 20 MG Tablet 1 tablet in the evening Orally Once a dayDoxazosin Mesylate 2 MG Tablet 1 tablet Orally Once a dayAspir-81 81 MG Tablet Delayed Release 1 tablet Orally Once a dayMulti Vitamin/Minerals Tablet Orally Losartan Potassium 50 MG Tablet 1 tablet Orally Once a dayamLODIPine Besylate 5 MG Tablet TAKE 1 TABLET BY MOUTH EVERY DAY Oral Medication List reviewed and reconciled with the patientTaking Vitamin D 50 MCG (2000 UT) Tablet 1 tablet Orally Once a dayTaking Metoprolol Succinate ER 25 MG Tablet Extended Release 24 Hour 1 tablet Orally twice a dayTaking Simvastatin 20 MG Tablet 1 tablet in the evening Orally Once a dayTaking Doxazosin Mesylate 2 MG Tablet 1 tablet Orally Once a dayTaking Aspir-81 81 MG Tablet Delayed Release 1 tablet Orally Once a dayTaking Multi Vitamin/Minerals Tablet Orally Taking Losartan Potassium 50 MG Tablet 1 tablet Orally Once a dayTaking amLODIPine Besylate 5 MG Tablet TAKE 1 TABLET BY MOUTH EVERY DAY Oral Medication List reviewed and reconciled with the patient * Allergies:?seasonalyes[Aller gies Verified] Objective: * Vitals:?Wt: 241 lb 4 oz, Ht: 71.5 in, BMI:33.17 Index, BP: 000/00 mm Hg, Temp: 98.2. * Examination: ???General Examination: ?GENERAL APPEARANCE:?pleasant, well nourished, well developed, in no acute distress.?EYES:?sclera non-icteric.?ORAL CAVITY:?mucosa moist.?NECK/THYROID:?no cervical lymphadenopathy, neck supple.?SKIN:?nonjaundiced, no spider angiomata..?HEART:?S1, S2 normal.?LUNGS:?clear to auscultation bilaterally.?ABDOMEN:?normal bowel sounds, no guarding or rigidity, no hepatosplenomegaly, no masses palpable, soft, nontender, nondistended..?EXTREMITIES:?no edema.?NEUROLOGIC:?alert and oriented.? Assessment: * Assessment: 1.?Aspirin long-term use - Z 79.82 (Primary)?2.?History of adenomatous polyp of colon - Z86.010?3.?Family history of colon cancer - Z80.0?4.?Colon cancer screening - Z12.11? Overall, Walt appears quite well. Given his history of a tubular adenoma removed over 5 years ago, his family history of colon cancer in his mother, and his good clinical appearance, I did recommend a colonoscopy for further screening purposes. We did review the rationale for this in regard to colon cancer prevention. Full consent is obtained for this, including risks of bleeding and perforation. The procedure will be done with monitored anesthesia care. He was given the below instructions regarding adjustment of his medication for the procedure. Walt and his were very comfortable with this plan. Thank you again for allowing me to participate in Walt's care. I shall continue to keep you advised of his progress. Plan: * Treatment: Notes: Stop aspirin for three days before the colonoscopy??2.?Family history of colon cancer?Procedure: COLONOSCOPY (Ordered for 08/18/2023)* with MACsched for 11/24/23 at 10:00 ammiralax 3.?Colon cancer screening?Procedure: COLONOSCOPY (Ordered for 08/18/2023)* with MACsched for 11/24/23 at 10:00 ammiralax * Procedure Codes:?3017F COLOR ECTAL CA SCREEN DOC [id number] TOBACCO [id number] BP SCR NOT PRFRM REC REASON NOS * Preventive Medicine:? ??Counseling:?Care goal follow-up plan:?Above Normal BMI Follow-up?Giving encouragement to exercise,?BMI management provided?Yes.? * Follow Up:?prn * * Sign off status: Completed true * Provider:?Lee Yost MD Date:? 024 Generated for Steve mosher/Cecilia/Jacobsmitting on:?11/10/2024 07:36 PM EDT History and Physical Notes * HPI (History of Present Illness) Category Sub-Category Detail Notes Category Not es incontinence I saw Walt in the office today for evaluation of his personal history of a tubular adenoma of the colon and need for colorectal cancer screening. He was accompanied by his . I last saw Walt in October of 2020. His last colonoscopy in June 2018 revealed only a small tubular adenoma. He does have a family history of colon cancer in his mother in her 50s. He currently feels very well. He enjoys a good appetite, without any significant heartburn or dysphagia. His bowel movements have been regular and without any signs of bleeding. He denies abdominal pain, jaundice, nor weight loss. He does have some prostate-related symptoms with frequent urination during the day and at night. Examination Category Sub-Category Detail Notes Category Not es General Examination GENERAL APPEARANCE: pleasant , well [...]
--- OUTSIDE RECORDS SUMMARY | 2024-11-10 19:37 | XMS_ITS ---
Author Organization [facility] Address [address] [place] [address] Care Team Providers Care Wheat [employer] Flake Miller Name Role Phone Yan Rose MD Primary Care Provider Lee Marie Unavailable [phone] REASON FOR VISIT screening,hx polyps,fam hx colon ca Problems Problem Type SNOMED Code ICD Code Onset Dates Problem Status W/U Status Risk Notes Problem History of polyp of colon (situation) (171237902) Personal history of colonic polyps (Z86.010) Active confirmed Problem Diverticular disease of colon (040252920) Diverticulosis of large intestine without perforation or abscess without bleeding (K57.30) Active confirmed Encounters Encounter Location Date Provider Diagnosis [facility] [address] [place], [place] [id number] 11/24/2023 Lee Yost Encounter for scre ening colonoscopy Z12.11 ; Personal history of colonic polyps Z86.010 ; Family history of colon cancer Z80.0 ; Diverticulosis of large intestine without perforation or abscess without bleeding K57.30 and Other hemorrhoids K64.8 Assessments Encounter Date Diagnosis (ICD Code) Assessment Notes Treatment Notes Treatment Clinical Notes Section Notes 11/24/2023 Encounter for screening colonoscopy (ICD-10 - Z12.11) 11/24/2023 Personal history of colonic polyps (ICD-10 - Z86.010) 11/24/2023 Family history of colon cancer (ICD-10 - Z80.0) 11/24/2023 Diverticulosis of large intestine without perforation or abscess without bleeding (ICD-10 - K57.30) 11/24/2023 Other hemorrhoids (ICD-10 - K64.8) Plan Of Treatment No Information Progress Notes * WALT VUONG SDOB:1950 (74 yo M)Acc No.[id number]:11/24/2023 COLON WITH MAC Patient:?WALT VUONG Provider:?Lee Yost MD :1950???Age:73 Y???Sex:Male Tristen e:11/24/2023 Address:[address] [place], [place] [id number] Pcp:Yan Rose MD Subjective: * Chief Complaints: * ???1. Screening,hx polyps,fa m hx colon ca. * Medical History:? Objective: * Vitals:? Assessment: * Assessment: 1.?Encounter for screening c olonoscopy - Z12.11 (Primary)???2.?Personal history of colonic polyps - Z86.010???3.?Family history of colon cancer - Z80.0???4.?Diverticulosis of large intestine without perforation or abscess without bleeding - K57.30???5.?Other hemorrhoids - K64.8??? Plan: * Treatment: * Procedure Codes:?G0105 COLOR EC CANCR SCR; COLNSCPY HI RISK, 0529F INTRVL 3+YRS PTS CLNSCP DOCD, 0528F RCMND FLW-UP 10 YRS DOCD, Modifiers: 1P * * The named appointment provid er may or may not be the originator of this progress note, and it is not deemed complete until electronically signed by the appointment provider. Sign off status: Pending * Provider:?Lee Yost MD Date:? 024 Generated for Steve mosher/Cecilia/eTransmitting on:?11/10/2024 07:37 PM EDT
--- OUTSIDE RECORDS SUMMARY | 2024-11-10 19:37 | XMS_ITS | Patient Health Record ---
Author Organization [facility] Address [address] [place] [address] Care Team Providers Care Tax Preparer Name Role Phone Yan Rose MD Primary Care Provider Lee Marie Unavailable [phone] Allergies Allergen (clinical drug ingredient) Drug/Non Drug Allergy documented on EMR Reaction Allergy Type Onset Date Status seasonal (uncoded) Unknown Allergy A ctive Reason For Referral No Information Medications Medication [...] MOUTH EVERY DAY Oral for 90 Active Immunizations Vaccine Route Administration Date Status Comme nts Flu vaccine no Preserv 3 and > Unknown 05/23/2017 Admin istered Influenza Unknown 05/07/2020 Administered Influenza Unknown 04/25/2023 Administered Social History Alcohol Screen Question Answer Notes [...] Nonsmoker; 1 glass of wine Q D Nonsmoker; 1 glass of wine Q D Nonsmoker; 1 glass of wine Q D Nonsmoker; 1 glass of wine Q D Problems Problem Type SNOMED Code ICD Code Onset Dates Problem Status W/U Status Risk Notes Problem 300005540 Colon cancer screening (Z12.11) Active confirmed Problem Rectal bleeding (42495232) Rectal bleeding (K62.5) Active confirmed Problem 770228470 History of adenomatous polyp of colon (Z86.010) Active confirmed Problem History of polyp of colon (situation) (704187792) Personal history of colonic polyps (Z86.010) Active confirmed Problem Diverticular disease of colon (808711134) Diverticulosis of large intestine without perforation or abscess without bleeding (K57.30) Active confirmed Problem 887394491597655 Aspirin long-ter m use (Z79.82) Active confirmed Problem 085738475 Family history o f colon cancer (Z80.0) Active confirmed Problem 28012896 Heme + stool (R19.5) Active confirmed Problem 47038212 Hypertension, unspecified type (I10) Active confirmed Encounters Encounter Location Date Provider Diagnosis [facility] Outpatient [address] [place] [phone] 11/24/2023 Lee Yost Encounter for scre ening [...] hemorrhoids (ICD-10 - K64.8) Plan Of Treatment Future Test Test Name Order Date COLONOSCOPY 11/13/2014 COLONOSCOPY 04/11/2018 COLONOSCOPY 08/18/2023 Insurance Providers Payer Name Payer Address Payer Phone Subscriber Number Group Number Insured Name Patient Relationship to Insured Coverage Start Date Coverage End Date MEDICARE OF [place] [address] [place] [address] [id number] WALT VUONG Self - patient is the insured MED[employer] ATT[employer] CLAIMS [address] [place] [address] [id number] WALT VUONG Self - patient is the insured Medical (General) History Medical History History ICD Code Screening Colonoscopies in and in 08/2009--negative except for a hyperplastic polyp in 2003--he was noted to have some mild sigmoid diverticulosis and small internal hemorrhoids; negative colonoscopy in 02/2015 TIA's Hyperlipidemia Denies [place],DM,CVA,Lung disease,renal dise ase HTN Gout Melsiutbmjlk-bsmtk-6 episode s--most recent episode was in September [...] replacement right 04/2019 Back surgery 12/2018 Torn [place]'s tendon 08/2018 Bilateral foot surgery 2020
--- OUTSIDE RECORDS SUMMARY | 2024-11-10 19:37 | XMS_ITS ---
Author Organization [facility] O[facility]oley Address [address] [place] [address] Care Team Providers Care Backend Tester Name Role Phone Yan Rose MD Primary Care Provider Christina High Unavailable [phone] Allergies Allergen (clinical drug ingredient) Drug/Non Drug Allergy documented on EMR Reaction Allergy Type Onset Date Status amoxicillin Amoxicillin diarrhea, upset stomach Drug Allergy Active REASON FOR VISIT Pcp-12/2023, Painful nail(s) aggravated by shoes causing difficulty standing/walking, Painful nail(s) aggravated by shoes causing difficulty standing/walking Medications Medication SIG (Take, Route, Frequency, Duration) Notes Start Date End Date Status Cephalexin 500 MG 1 capsule Orally true ry 12 hrs for 10 day(s) Not-Taking Losartan Potassium 25 MG Orally 2 x a day Not-Taking Augmentin 875-125 MG 1 tablet Orally true ry 12 hrs for 10 day(s) 12/16/2017 Not-Taking Keflex 500 MG 1 capsule Orally true ry 12 hrs for 10 days 01/20/2020 Not-Taking Keflex 500 MG 1 capsule Orally true ry 12 hrs for 10 days 05/29/2020 Not-Taking Simvastatin 20 MG 1 tablet every [...] 8 hrs for 10 days 01/19/2020 Not-Taking Doxazosin Mesylate 2 MG 1 tablet Orally Once a day Active Metoprolol Tartrate 25 MG 1 tablet with food Orally Twice a day Active Aspirin 81 MG 1 tablet Orally Once a day Active amLODIPine Besylate 5 MG 1 tablet Orally Once a day for 30 day(s) Active Social History Tobacco Use: Social History Observation Description Date Details (start date - stop date) Never Smoker NA - NA Tobacco Use/Smoking Question Answer Notes Are you a: nonsmoker Additional Findings: Tobacco Non-User Current no n-smoker Tobacco use other than smoking: Question Answer Notes Are you an other tobacco user? No Vital Signs Height 6ft in 08/08/2024 Weight 230 lbs 08/08/2024 BMI 31.19 kg/m2 08/08/2024 Blood pressure systolic 135 mm Hg 08/08/19 25 Blood pressure diastolic 70 mm Hg 025 Procedures Procedure Date Ordered Date Performed Result Body Sit e 13975-XUUSQBS NAIL, 6 OR MORE 08/08/2024 N/A Encounters Encounter Location Date Provider Diagnosis [facility] [address] [address] 08/08/2024 Christina Delaney Pain in right toe(s) M79.674 ; Onychomycosis B35.1 and Pain in left toe(s) M79.675 Assessments Encounter Date Diagnosis (ICD Code) Assessment Notes Treatment Notes Treatment Clinical Notes Section Notes 08/08/2024 Pain in right toe(s) (ICD-10 - M79.674) 08/08/2024 Onychomycosis (ICD-10 - B35.1) 08/08/2024 Pain in left toe(s) (ICD-10 - M79.675) Plan Of Treatment Pending Test Test Name Order Date 56007-SCPEGHE NAIL, 6 OR MORE 08/08/2024 Next Appt Details Follow Up: 3 Months, Reason: Provider Name:Christina riddle, 12/02/2024 03:00:00 PM, [address] [place] [address], [id number], Procedure Notes * Category Sub-Category Detail Notes Debride Nail 6-10 Nail debridement Due to the cl inical pathology outlined in the exam findings, performance of this nail treatment is medically necessary as its management by an unskilled/untrained nonprofessional would put this patients foot and overall health at risk. Therefore, debridement to affected nail(s), as described in exam ( TA, T1, T2, T3, T4, T5, T6, T7, T8, T9, ), was performed exclusively by the physician of record to reduce/remove overall nail length, girth, thickness, subungual debris, and necrotic tissue, by manual and/or electrical means through the use of a nail nipper and/or dremel-type napper grinder, to a more viable healthy nail plate or bed tissue 6-10 nails in total. Silver nitrate was used for any petechial bleeding as necessary. Definitive antifungal treatment options, both pharmaceutical and surgical, have been reviewed and discussed with the patient. The patient solely prefers the use of intermittent/as needed professional debridement services for their nail condition and understands the need for additional periodic treatments to maintain effectiveness in symptomatic relief - 48259 Progress Notes * Bobo VUONG SDOB:1950 (74 yo M)Acc No.[id number]:08/08/2024 Progress Note Patient:?VUONGBobo ROBLES Ruy Provider:?Christina Delaney DPM :1950???Age:74 Y???Sex:Male Tristen e:08/08/2024 Address:[address] [place] [address] Bill [id number] Pcp:Yan Rose MD Subjective: * Chief Complaints: * ???Pcp-ainful nail(s ) aggravated by shoes causing difficulty standing/walkingPainful nail(s) aggravated by shoes causing difficulty standing/walking * HPI: ???Painful Nails:?Pt States Last PCP Visit:?Date:?07/25/2024 * ROS:?General/Constitutional:?Nausea?denies.?Vomiting?denies.?Hunger Thirst?denies.?Loss appetite?denies.?Chills?denies.?Fatigue?denies.?Fever?denies.?Night Sweats?denies.?Unexplained weight loss?denies.?Unexplained [...] HT Repair R 2,3, Bone biopsy R2nd 03/26/20209958LJR5-8, Skin Ulcer L, Bone Biopsy L 05/28/2020 * Hospitalization/Major Diagno stic Procedure:?[facility]- Disc Sx 12/2018EKG, Blood Work 03/09/20 * Family History:?Mother: dece ased, colon cancer.?Father: , heart condition, diagnosed with Unspecified essential hypertension.?Spouse: alive.?Paternal Grand Father: diagnosed with Unspecified essential hypertension.? * Social History:?Tobacco Use:?Tobacco Use/Smoking?Are you a:?nonsmoker ?Additional Findings: Tobacco Non-User?Current non-smoker ?Tobacco use other than smoking?Are you an other tobacco user??No * Medications:?TakingAspirin 8 1 MG Tablet Delayed Release 1 tablet Orally Once a day amLODIPine Besylate 5 MG Tablet 1 tablet Orally Once a day Doxazosin Mesylate 2 MG Tablet 1 tablet Orally Once a day Metoprolol Tartrate 25 MG Tablet 1 tablet with food Orally Twice a day Simvastatin 20 MG Tablet 1 tablet every evening Orally Once a day Taking Aspirin 81 MG Tablet Delayed Release 1 tablet Orally Once a day Taking amLODIPine Besylate 5 MG Tablet 1 tablet Orally Once a day Taking Doxazosin Mesylate 2 MG Tablet 1 tablet Orally Once a day Taking Metoprolol Tartrate 25 MG Tablet 1 tablet with food Orally Twice a day Taking Simvastatin 20 MG Tablet 1 tablet every evening Orally Once a day Not-Taking/PRNPhysical Therapy . . . . 2-3x/week Walking Boot/Pneumatic As directed Wear Daily Doxycycline Hyclate 100 MG Capsule 1 capsule Orally Once a day Augmentin 500-125 MG Tablet 1 tablet Orally every 8 hrs Keflex 500 MG Capsule 1 capsule Orally every 12 hrs Keflex 500 MG Capsule 1 capsule Orally every 12 hrs Losartan Potassium 25 MG Tablet Orally 2 x a day Augmentin 875-125 MG Tablet 1 tablet Orally every 12 hrs Cephalexin 500 MG Capsule 1 capsule Orally every 12 hrs Medication List reviewed and reconciled with the patientNot-Taking/PRN Physical Therapy . . . . 2-3x/week Not-Taking/PRN Walking Boot/Pneumatic As directed Wear Daily Not-Taking/PRN Doxycycline Hyclate 100 MG Capsule 1 capsule Orally Once a day Not-Taking/PRN Augmentin 500-125 MG Tablet 1 tablet Orally every 8 hrs Not- Taking/PRN Keflex 500 MG Capsule 1 capsule Orally every 12 hrs Not-Taking/PRN Keflex 500 MG Capsule 1 capsule Orally every 12 hrs Not-Taking/PRN Losartan Potassium 25 MG Tablet Orally 2 x a day Not-Taking/PRN Augmentin 875-125 MG Tablet 1 tablet Orally every 12 hrs Not-Taking/PRN Cephalexin 500 MG Capsule 1 capsule Orally every 12 hrs Medication List reviewed and reconciled with the patient * Allergies:?Amoxicillin: diar christian, upset stomach - Side Effectsyes[Allergies Verified] Objective: * Vitals:?Ht: 6ft, Wt:230, BMI :31.19, Shoe size: 11.5, BP:135/70mm Hg, Ht-cm: 182.88 cm, Wt-k.33 kg. * Examination: ???Nails: ?NAILS are:?Elongated, overgrown, dystrophic, lytic, greater than 3mm thick, discolored and friable with crumbly malodorous subungual debris, with pain on palpation ,?TA, T1, T2, T3, T4, T5, T6, T7, T8, T9.? Assessment: * Assessment: 1.?Pain in right toe(s) - M7 9.674???2.?Onychomycosis - B35.1 (Primary)???3.?Pain in left toe(s) - M79.675??? Plan: * Treatment: * Procedures:?Debride Nail 6-10:?Nail debridement?Due to the clinical pathology outlined in the exam findings, performance of this nail treatment is medically necessary as its management by an unskilled/untrained nonprofessional would put this patients foot and overall health at risk. Therefore, debridement to affected nail(s), as described in exam (? TA, T1, T2, T3, T4, T5, T6, T7, T8, T9, ), was performed exclusively by the physician of record to reduce/remove overall nail length, girth, thickness, subungual debris, and necrotic tissue, by manual and/or electrical means through the use of a nail nipper and/or dremel-type napper grinder, to a more viable healthy nail plate or bed tissue 6- 10 nails in total. Silver nitrate was used for any petechial bleeding as necessary. Definitive antifungal treatment options, both pharmaceutical and surgical, have been reviewed and discussed with the patient. The patient solely prefers the use of intermittent/as needed professional debridement services for their nail condition and understands the need for additional periodic treatments to maintain effectiveness in symptomatic relief - 42556.? * Procedure Codes:?26943 DEBRI DE NAIL, 6 OR MORE * Follow Up:?3 Months * Images: * Sign off status: Completed true * Provider:?Christina Delaney DPM Date:?0 08/08/2024 Generated for Steve mosher/Cecilia/Gerardo on:?11/10/2024 07:37 PM EDT History and Physical Notes * HPI (History of Present Illness) Category Sub-Category Detail Notes Category Not es Painful Nails Pt States Last PCP Visit: Date:: 07/25/2024 Examination Category Sub-Category Detail Notes Category Not es Nails NAILS are: Elongated, overg rown, dystrophic, lytic, greater than 3mm thick, discolored and friable with crumbly malodorous subungual debris, with pain on palpation , TA, T1, T2, T3, T4, T5, T6, T7, T8, T9
[2024-11-10 19:48] VITALS: BP 130/69; PULSE 68; RESP 16; TEMP 36.6; O2SAT 95
== END 2024-11-10 19:48 | disposition home or self-care (01) ==
PROVIDERS: Emergency Provider Internal Medicine; PCP Internal Medicine
DX: S91.114A Laceration without foreign body of right lesser toe(s) without damage to nail, initial encounter (principal); W27.8XXA Contact with other nonpowered hand tool, initial encounter; M79.674 Pain in right toe(s); Y93.E8 Activity, other personal hygiene; Y92.019 Unspecified place in single-family (private) house as the place of occurrence of the external cause; Y99.9 Unspecified external cause status
CPT/HCPCS: 12001; 99282

== ENCOUNTER 2024-12-10 10:00 | Outpatient (RCR) | payer MEDICARE, SELFPAY | END 2025-01-23 12:00 | disposition home or self-care (01) | LOC: HO.WCC 10:00 | PROVIDERS: PCP Internal Medicine; Visit Provider Surgery | DX: S91.114D Laceration without foreign body of right lesser toe(s) without damage to nail, subsequent encounter (principal); X58.XXXD Exposure to other specified factors, subsequent encounter | CPT/HCPCS: 99211; 99212 ==

== ENCOUNTER 2024-12-17 11:02 | Outpatient (AMB) | payer MEDICARE, SELFPAY ==
[2024-12-17 11:04] VITALS: BP 146/67; PULSE 76; RESP 16; TEMP 36.4; O2SAT 97; BMI 32.0
--- NOTE | 2024-12-17 11:04 | MHC.PC.OV ---
Vital Signs 12/17/24 11:04 Height 6 ft Weight 236 lb BMI 32.0 BP 146/67 H Respiration 16 Pulse 76 Pulse Source Pulse Oximeter Temp 97.5 F Temp Source Temporal Artery Scan Pulse Oximetry (%) 97 Oxygen Delivery Method Room Air Intake Visit Reasons: establish care Bobbin Hauler Required: No Accompanied by: Spouse Allergies amoxicillin [From Augmentin] Adverse Reaction (Verified 12/17/24 15:57) Diarrhea clavulanic acid [From Augmentin] Adverse Reaction (Verified 12/17/24 15:57) Diarrhea Medication List - Last Reconciled 12/17/24 by Seferino Ledesma MD amlodipine 5 mg PO DAILY aspirin 81 mg PO DAILY cholecalciferol (vitamin D3) 25 mcg PO DAILY doxazosin 2 mg PO BEDTIME glucosamine sulfate 1,500 mg PO BID metoprolol tartrate 25 mg PO BID simvastatin 20 mg PO DAILY tamsulosin (Flomax) 0.4 mg PO DAILY Tobacco use date assessed: 12/17/24 Fall risk assessment: No Falls in past year Last assessed Fall Risk: 12/17/24 Dental Screening Dental Screen Date: 12/17/24 Did you have a dental visit in the last 12 months?: Yes Did you have a dental problem in the last 6 months where you did not have access to dental care?: No Was dental information given to patient?: Patient has dentist HPI establish care HPI Details 74-year-old male presents to the office to establish his care. He is transferring his care from a provider who recently retired. Patient gives history of hypertension and increased frequency of urination. Currently on medications. Doxazosin has not been controlling all his symptoms. He has been getting up 3-4 times at night to go to the bathroom. No hesitancy. [facility] Medical History Finger mass, right Skin cancer Gout Arthritis TIA (transient ischemic attack) On beta mango at home Pre-diabetes Elevated cholesterol BPH (benign prostatic hyperplasia) Back pain Hypertension Surgical History Hx of hammer toe correction S/P Achilles tendon repair History of back surgery Hx of colonoscopy (~11/24/23) History of total right hip arthroplasty Family History Father No problems noted. Mother No problems noted. Social History Housing: House Alcohol intake: current Alcohol intake frequency: 0-2 drinks per day Alcohol type: wine Patient Tobacco Use Status: Never used Tobacco service: No Current occupational status: retired Cognitive needs: No Hearing needs: No Vision needs: Yes (rx glasses) Questionnaire PHQ-9 Over the last 2 weeks, how often have you been bothered by any of the following problems? 1. Little interest or pleasure in doing things: not at all 2. Feeling down, depressed, or hopeless: not at all 3. Trouble falling or staying asleep, or sleeping too much: not at all 4. Feeling tired or having little energy: not at all 5. Poor appetite or overeating: not at all 6. Feeling bad about yourself - or that you are a failure or have let yourself or your family down: not at all 7. Trouble concentrating on things, such as reading the newspaper or watching television: not at all 8. Moving or speaking so slowly that other people could have noticed. Or the opposite - being so fidgety or restless that you have been moving around a lot more than usual: not at all 9. Thoughts that you would be better off or of hurting yourself in some way: not at all Total score: 0 Depression Screening Interpretation: Negative Depression Screening Done: Yes Source: Developed by Drs. Lee Welch, Terra Justin, Frantz Jules and colleagues, with an educational nico from [employer]. Thrive Questionnaire Date Thrive assessed: 12/17/24 I am a: Patient What is your living situation today?: I have a steady place to live Within the past 12 months, did the food you bought not last and you didn't have the money to get more?: Never true Within the past 12 months, did you worry whether your food would run out before you got money to buy more?: Never true Do you have trouble paying for medicines?: No Do you have trouble getting transportation to medical appointments?: No Do you have trouble paying your heating and electricity bill?: No Do you have trouble taking care of your child, family member or friend?: No Do you have trouble with day-to-day activities such as bathing, preparing meals, shopping, managing finances, etc.?: No Are you currently unemployed and looking for a job?: No Are you interested in more education?: No Please select the resources that you would like help with: None THRIVE Score: 0 AUDIT C Alcohol Use Questionnaire (AUDIT-C) 1. How often do you have a drink containing alcohol?: 4 or more times a week 2. How many drinks containing alcohol do you have on a typical day when you are drinking?: 1 or 2 3. How often do you have six or more drinks on one occasion?: Never Total Score: 4 EDGAR-7 AMB Questionnaire EDGAR-7 Date EDGAR - 7 assessed: 12/17/24 Feeling nervous, anxious, or on edge: 0 = Not at all Not being able to stop or control worryin = Not at all Worrying too much about different things: 0 = Not at all Trouble relaxin = Not at all Being so restless that it is hard to sit still: 0 = Not at all Becoming easily annoyed or irritable: 0 = Not at all Feeling afraid as if something awful might happen: 0 = Not at all Total EDGAR-7 score (0-4 normal; 5-9 mild; 10-14 moderate; 15-21 severe): 0 Source: Developed by Drs. Lee Welch, Terra Justin, Frantz Jules and colleagues, with an educational nico from [employer]. Physical exam (Primary Care) Vital Signs: Last Vital Signs Temp 97.5 F 12/17/24 11:04 Pulse 76 12/17/24 11:04 Resp 16 12/17/24 11:04 BP 146/67 H 12/17/24 11:04 Pulse Ox 97 12/17/24 11:04 Oxygen Delivery Method Room Air 12/17/24 11:04 Care Plan Goal for BP management: Blood pressure is slightly out of range. BMI result Body Mass Index 32.0 BMI Assessment/Plan discussion: High BMI High, discussed plan: lifestyle, weight reduction and dietary Tobacco/Smoking Status: Tobacco use Status Tobacco use date assessed 12/17/24 12/17/24 11:19 Patient Tobacco Use Status Never used Tobacco 12/17/24 11:19 PHQ-9: PHQ-9 Score PHQ-9: Total score 0 12/17/24 11:19 Depression Screening Interpretation: Negative Thrive Assessment: Date of Thrive Assessment Date Thrive assessed 12/17/24 12/17/24 11:19 Advance Care Planning discussion: Exists, not on file Date of discussion: 12/17/24 Const General: cooperative and healthy appearing Nutritional Appearance: well nourished Orientation/consciousness: patient oriented x3 Limitations: no limitations HENMT Head: Yes normal to inspection Eyes General: appearance normal, both eyes and all related structures Neck Neck: Yes normal visual inspection Chest Chest palpation & inspection: normal palpation of entire chest wall Resp Effort & Inspection: normal respiratory effort Neuro General: patient oriented x3 Coding Level of Care Code New Pt Level 4 (42742) Complex EM visit Add On G2211 Diagnoses Mitral regurgitation I34.0 Hypertension I10 Additional Codes Vital Signs *Quality* - Advance Care Planning discussion: Exists, not on file ([id number]) Assessment & Plan Assessment & Plan (1) Mitral regurgitation: Code(s): I34.0 - Nonrheumatic mitral (valve) insufficiency Plan: Systolic murmur heard on physical exam. Echocardiogram has been ordered. (2) Hypertension: Code(s): I10 - Essential (primary) hypertension Category: Medical Plan: Continue medications at the same dosage. Plan PSA is in range. We will add finasteride to the regimen to improve urinary flow and decreased frequency. Orders: Orders CA echo transthoracic complete Today I34.0 - Nonrheumatic mitral (valve) insufficiency Liver Panel Today I10 - Essential (primary) hypertension Thyroid Stimulating Hormone Today I10 - Essential (primary) hypertension UA and rflx microscopic Today I10 - Essential (primary) hypertension Basic Metabolic Panel Today I10 - Essential (primary) hypertension Complete Blood Count no Diff Today I10 - Essential (primary) hypertension Lipid Panel Today I10 - Essential (primary) hypertension Medications: New finasteride 5 mg PO DAILY 90 days 90 tabs 1RF
--- OUTSIDE RECORDS SUMMARY | 2024-12-17 12:31 | XMS_ITS | Patient Health Record ---
Author Organization [facility] afia OroscoBill Address [address] [place] [address] Care Team Providers Care Screwdown Operator Name Role Phone Seferino Ledesma Primary Care Provider Christina Delaney Unavailable [phone] Efrain Reina Unavailable [phone] Allergies Allergen (clinical drug ingredient) Drug/Non Drug Allergy documented on EMR Reaction Allergy Type Onset Date Status amoxicillin Amoxicillin diarrhea, upset stomach Drug Allergy Active Reason For Referral No Information Medications Medication SIG (Take, Route, Frequency, Duration) Notes Start Date End Date Status Augmentin 500-125 MG 1 tablet Orally true ry 8 hrs for 10 days 01/19/2020 Not-Taking Keflex 500 MG 1 capsule Orally true ry 12 hrs for 10 days 05/29/2020 Not-Taking Walking Boot/Pneumatic As directed Wear Daily for Until further notice Not-Taking Doxycycline Hyclate 100 MG 1 capsule Orally Once a day for 10 day(s) 01/14/2021 Not-Taking Simvastatin 20 MG 1 tablet every eveni ng Orally Once a day for 30 day(s) Active Physical Therapy . . . 2-3x/week for 3- 4 weeks Not-Taking Cephalexin 500 MG 1 capsule Orally true ry 12 hrs for 10 day(s) Not-Taking Metoprolol Tartrate 25 MG 1 tablet with food Orally Twice a day Active amLODIPine Besylate 5 MG 1 tablet Orally Once a day for 30 day(s) Active Augmentin 875-125 MG 1 tablet Orally true ry 12 hrs for 10 day(s) 12/16/2017 Not-Taking Doxazosin Mesylate 2 MG 1 tablet Orally Once a day Active Keflex 500 MG 1 capsule Orally true ry 12 hrs for 10 days 01/20/2020 Not-Taking Aspirin 81 MG 1 tablet Orally Once a day Active Losartan Potassium 25 MG Orally 2 x a day Not-Taking Immunizations Vaccine Route Administration Date Status Comme nts COVID-19 Moderna Vaccine Unknown 05/14/2021 Administere d 10/12/2020 ,11/12/2020 Social History Tobacco Use: Social History Observation Description Date Details (start date - stop date) Never Smoker NA - NA Tobacco use other than smoking: Question Answer Notes Are you an other tobacco user? No Tobacco Control (Standard) Question Answer Notes Tobacco use: Nonsmoker Additional Findings: Tobacco non-user Current no nsmoker AUDIT-C (Standard) Question Answer Notes Did you have a drink containing alcohol in the p ast year? No Points 0 Interpretation Negative Problems Problem Type SNOMED Code ICD Code Onset Dates Problem Status W/U Status Risk Notes Problem Bilateral atherosclerosis of arteries of lower limbs (2609638570824663 7) Unspecified atherosclerosis of [place] arteries of extremities, bilateral legs (I70.203) Active confirmed Problem Bilateral peripheral neuropathy of lower limbs (8360864019188459 8) Neuropathy (G62.9) Active confirmed Problem Skin ulcer of to e of right foot with fat layer exposed (L97.512) Active confirmed Acute problem, Stable (1=3) Problem Skin ulcer of to e of left foot with fat layer exposed (L97.522) Active confirmed Response to treatment Vital Signs Blood pressure diastolic 70 mm Hg 12/02/2024 Height 6ft in 12/02/2024 Blood pressure systolic 135 mm Hg 12/02/2024 Weight 230 lbs 12/02/2024 BMI 31.19 kg/m2 12/02/2024 Procedures Procedure Date Ordered Date Performed Result Body Sit e 31955-PNVNTGP NAIL, 6 OR MORE 08/08/2024 N/A 19598-VMHHFUU NAIL, 6 OR MORE 12/02/2024 N/A 55792-JFEAOZC SKIN/TISSUE 12/02/2024 N/A Encounters Encounter Location Date Provider Diagnosis [facility] [place] [address] [place] [address] 02/05/2024 Efrain Reina Other hammer toe(s) (acquired), left foot M20.42 ; Tinea unguium B35.1 ; Other hammer toe(s) (acquired), right foot M20.41 ; Primary osteoarthritis, left ankle and foot M19.072 ; Pain in left toe(s) M79.675 ; Ingrowing nail L60.0 ; Pain in right toe(s) M79.674 ; Xerosis cutis L85.3 and Pain in left foot M79.[address] [address] 05/06/2024 EfrainBeatty Other hammer toe(s) (acquired), left foot M20.42 ; Tinea unguium B35.1 ; Other hammer toe(s) (acquired), right foot M20.41 ; Primary osteoarthritis, left ankle and foot M19.072 ; Pain in left toe(s) M79.675 ; Ingrowing nail L60.0 ; Pain in right toe(s) M79.674 ; Xerosis cutis L85.3 and Pain in left foot M79.[address] [address] 08/08/2024 Christina Delaney Pain in right toe(s) M79.674 ; Onychomycosis B35.1 and Pain in left toe(s) M79.[address] [address] 12/02/2024 Christina Delaney Pain in right toe(s) M79.674 ; Onychomycosis B35.1 ; Pain in left toe(s) M79.675 and Skin ulcer of toe of right foot with fat layer exposed L97.512 Assessments Encounter Date Diagnosis (ICD Code) Assessment Notes Treatment Notes Treatment Clinical Notes Section Notes 02/05/2024 Other hammer toe(s) (acquired), left foot (ICD-10 - M20.42) 05/06/2024 Tinea unguium (ICD-10 - B35.1) 05/06/2024 Other hammer toe(s) (acquired), left foot (ICD-10 - M20.42) 08/08/2024 Pain in right toe(s) (ICD-10 - M79.674) 12/02/2024 Pain in right toe(s) (ICD-10 - M79.674) 12/02/2024 Onychomycosis (ICD-10 - B35.1) 05/06/2024 Other hammer toe(s) (acquired), right foot (ICD-10 - M20.41) 08/08/2024 Onychomycosis (ICD-10 - B35.1) 12/02/2024 Pain in left toe(s) (ICD-10 - M79.675) 02/05/2024 Tinea unguium (ICD-10 - B35.1) 02/05/2024 Other hammer toe(s) (acquired), right foot (ICD-10 - M20.41) 05/06/2024 Primary osteoarthritis, left ankle and foot (ICD-10 - M19.072) 08/08/2024 Pain in left toe(s) (ICD-10 - M79.675) 12/02/2024 Skin ulcer of toe of right foot with fat layer exposed (ICD-10 - L97.512) Acute problem, Stable (1=3) Patient Educated with: WOUND CARE INSTRUCTIONS.p df (WOUND CARE INSTRUCTIONS.p df) 05/06/2024 Pain in left toe(s) (ICD-10 - [...] Pain in left foot (ICD-10 - M79.672) 12/02/2024 Other Patient Educated with: WOUND CARE INSTRUCTIONS.p df (WOUND CARE INSTRUCTIONS.p df) Plan Of Treatment Pending Test Test Name Order Date X ray : Foot, left 2V 08/17/2011 X ray : Foot, left 2V 12/18/2017 X ray : Foot, right 2V 12/18/2017 X ray : Foot, left 3V 08/10/2018 X ray : Foot, left 3V 02/12/2020 X ray : Foot, left 3V 04/20/2022 X ray : Foot, left 3V 06/01/2020 X ray : Foot, left 3V 06/15/2020 X ray : Foot, right 3V 04/20/2022 X ray : Foot, right 3V 03/30/2020 X ray : Foot, right 3V 04/08/2020 X ray : Foot, right 3V 04/20/2020 X ray : Foot, right 3V 05/13/2020 X ray : Foot, right 3V 01/27/2020 45101-TOMNUVB NAIL, 6 OR MORE 08/08/2024 26641-KFAZMMP NAIL, 6 OR MORE 12/02/2024 51402- Debride <25 sq cm 01/25/2018 60719- Debride <25 sq cm 04/26/2018 97134- Debride <25 sq cm 09/05/2017 81201- Debride <25 sq cm 12/28/2017 46639- Debride <25 sq cm 01/11/2018 49437-FSBJNNF SKIN/TISSUE 12/18/2017 57501-PUZPYKT SKIN/TISSUE 08/30/2017 97196-VNPVQVT SKIN/TISSUE 03/01/2018 19277-AVGBBFS SKIN/TISSUE 12/02/2024 21306 I&D ABSCESS- SIMPLE,SINGLE 021 78315 I&D ABSCESS- SIMPLE,SINGLE 020 88232-HFKG SKIN LESIONS, 2 TO 4 09/30/19 20 74586-TSJK SKIN LESIONS, 2 TO 4 01/13/20 20 41759-XQLD SKIN LESIONS, 2 TO 4 03/07/20 19 11187-BTSS SKIN LESIONS, 2 TO 4 06/20/20 19 73710-AWTAXJLD OF HEMATOMA/FLUID 019 91317-ZFZSAFCR OF HEMATOMA/FLUID 019 84986-Llyjpkppm, Toes 01/11/2018 56897- Nail Unit Biopsy 12/18/2017 Next Appt Details Provider Name:Christina riddle, 03/17/2025 11:00:00 AM, [address] [facility], [place], [address], Insurance Providers Payer Name Payer Address Payer Phone Subscriber Number Group Number Insured Name Patient Relationship to Insured Coverage Start Date Coverage End Date Medicare National [employer] [address] [place] [address] [id number] Bobo Benjamin Self - patient is the insured [employer] [address] [place] [address] [id number] Bobo Benjamin Self - patient is the [...]
--- OUTSIDE RECORDS SUMMARY | 2024-12-17 12:31 | XMS_ITS ---
Author Organization [facility] afia OroscoBill Address [address] [place] [address] Care Team Providers Care Access Coordinator Name Role Phone Callie, Kartik Primary Care Provider Christina Delaney [phone] Allergies Allergen (clinical drug ingredient) Drug/Non Drug [...] Ordered Date Performed Result Body Sit e 68162-DKOZRPC NAIL, 6 OR MORE 08/08/2024 N/A Encounters Encounter Location Date Provider Diagnosis [facility] [address] [address] 08/08/2024 Christina Delaney Pain in right toe(s) M79.674 ; Onychomycosis B35.1 and Pain in left toe(s) M79.675 Assessments Encounter Date Diagnosis (ICD Code) Assessment Notes Treatment Notes Treatment Clinical Notes Section Notes 08/08/2024 Pain in right toe(s) (ICD-10 - M79.674) 08/08/2024 Onychomycosis (ICD-10 - B35.1) 08/08/2024 Pain in left toe(s) (ICD-10 - M79.675) Plan Of Treatment Pending Test Test Name Order Date 52886-IAWCIMS NAIL, 6 OR MORE 08/08/2024 Next Appt Details Follow Up: 3 Months, Reason: Provider Name:Christina riddle, 03/17/2025 11:00:00 AM, [address] [place] [address], [phone], Procedure Notes * Category Sub-Category Detail Notes [...] use of a nail nipper and/or dremel-type grinder and plater, to a more viable healthy nail plate [...] to maintain effectiveness in symptomatic relief - 89516 Progress Notes * Bobo VUONG SDOB:1950 (74 yo M)Acc No.[id number]:08/08/2024 Progress Note Patient:?Bobo VUONG Ruy Provider:?Christina Delaney DPM :1950???Age:74 Y???Sex:Male Tristen e:08/08/2024 Address:[address] [place] [address] Bill, [id number] Pcp:Yan Rose MD Subjective: * Chief Complaints: [...] HT Repair R 2,3, Bone biopsy R2nd 03/26/20206499RHL3-6, Skin Ulcer L, Bone Biopsy L 05/28/2020 [...] use of a nail nipper and/or dremel-type grinder and plater, to a more viable healthy nail plate [...] to maintain effectiveness in symptomatic relief - 94179.? * Procedure Codes:?04912 DEBRI DE NAIL, 6 OR MORE * Follow Up:?3 Months * Images: * Sign off status: Completed true * Provider:?Christina Delaney DPM Date:?0 08/08/2024 Generated for Steve mosher/Cecilia/Gerardo on:?12/17/2024 12:31 PM EDT History and Physical Notes * [...]
--- OUTSIDE RECORDS SUMMARY | 2024-12-17 12:31 | XMS_ITS ---
Author Organization [facility] Address [address] [place] [address] Care Team Providers Care Housing Quality Standard Inspector Name Role Phone Callie, Kartik Primary Care Provider [phone] Christina Delaney Unavailable [phone] Allergies Allergen (clinical drug ingredient) Drug/Non Drug Allergy documented on EMR Reaction Allergy Type Onset Date Status amoxicillin Amoxicillin diarrhea, upset stomach Drug Allergy Active REASON FOR VISIT Painful nail(s) aggravated by shoes causing difficulty standing/walking, Open sore - Toe Medications Medication SIG (Take, Route, Frequency, Duration) Notes Start Date End Date Status Keflex 500 MG 1 capsule Orally true ry 12 hrs for 10 days 05/29/2020 Not-Taking Cephalexin 500 MG 1 capsule Orally true ry 12 hrs for 10 day(s) Not-Taking Augmentin 875-125 MG 1 tablet Orally true ry 12 hrs for 10 day(s) 12/16/2017 Not-Taking Keflex 500 MG 1 capsule Orally true ry 12 hrs for 10 days 01/20/2020 Not-Taking Losartan Potassium 25 MG Orally 2 x a day Not-Taking Augmentin 500-125 MG 1 tablet Orally true ry 8 hrs for 10 days 01/19/2020 Not-Taking Walking Boot/Pneumatic As directed Wear Daily for Until further notice Not-Taking Doxycycline Hyclate 100 MG 1 capsule Orally Once a day for 10 day(s) 01/14/2021 Not-Taking Simvastatin 20 MG 1 tablet every eveni ng Orally Once a day for 30 day(s) Active Physical Therapy . . . 2-3x/week for 3- 4 weeks Not-Taking Metoprolol Tartrate 25 MG 1 tablet with food Orally Twice a day Active amLODIPine Besylate 5 MG 1 tablet Orally Once a day for 30 day(s) Active Doxazosin Mesylate 2 MG 1 tablet Orally Once a day Active Aspirin 81 MG 1 [...] Problem Status W/U Status Risk Notes Problem Skin ulcer of toe of left foot with fat layer exposed (L97.522) Active confirmed Response to treatment Problem Skin ulcer of toe of right foot with fat layer exposed (L97.512) Active confirmed Acute problem, Stable (1=3) Vital Signs Height 6ft in 12/02/2024 Weight 230 lbs 12/02/2024 BMI 31.19 kg/m2 12/02/2024 Blood pressure systolic 135 mm Hg 12/03/19 25 Blood pressure diastolic 70 mm Hg 025 Procedures Procedure Date Ordered Date Performed Result Body Sit e 13019-YSITGLQ NAIL, 6 OR MORE 12/02/2024 N/A 79605-BWFSCZG SKIN/TISSUE 12/02/2024 N/A Encounters Encounter Location Date Provider Diagnosis [facility] [place] [address] [place] [address] 12/02/2024 Christina Delaney Pain in right toe(s) M79.674 ; Onychomycosis B35.1 ; Pain in left toe(s) M79.675 and Skin ulcer of toe of right foot with fat layer exposed L97.512 Assessments Encounter Date Diagnosis (ICD Code) Assessment Notes Treatment Notes Treatment Clinical Notes Section Notes 12/02/2024 Pain in right toe(s) (ICD-10 - M79.674) 12/02/2024 Onychomycosis (ICD-10 - B35.1) 12/02/2024 Pain in left toe(s) (ICD-10 - M79.675) 12/02/2024 Skin ulcer of toe of right foot with fat layer exposed (ICD-10 - L97.512) Acute problem, Stable (1=3) Patient Educated with: WOUND CARE INSTRUCTIONS.p df (WOUND CARE INSTRUCTIONS.p df) 12/02/2024 Other Patient Educated with: WOUND CARE INSTRUCTIONS.p df (WOUND CARE INSTRUCTIONS.p df) Plan Of Treatment Treatment Notes Assessment Notes Skin ulcer of toe of right f oot with fat layer exposed Patient Educated with: WOUND CARE INSTRUCTIONS.pdf (WOUND CARE INSTRUCTIONS.pdf) Other Patient Educated wit h: WOUND CARE INSTRUCTIONS.pdf (WOUND CARE INSTRUCTIONS.pdf) Pending Test Test Name Order Date 72809-DHSDWOT NAIL, 6 OR MORE 12/02/2024 66794-IWLADAZ SKIN/TISSUE 12/02/2024 Next Appt Details Follow Up: 3 Months, Reason: Provider Name:Christina Monik riddle, 03/17/2025 11:00:00 AM, [address] [place] [address], [phone], Procedure Notes * Category Sub-Category Detail Notes [...] of a nail nipper and/or dremel-type grinder operator, to a more viable healthy nail plate [...] to maintain effectiveness in symptomatic relief - 65987 Debride skin and subQ Open wound Physician of record performed open wound selective debridement of devitalized necrotic/nonviable soft tissue, fibrin, exudate, epidermis, dermis, thru skin and subcutaneous fat tissue, first 20 sq cm or less, using sharp dissection with sterile 15 blade, and/or tissue nippers. ANESTHESIA- was accomplished TOPICALLY with Lidocaine Hydrochloride Jelly 2 percent, Sterile antibiotic dressing applied. Hemostasis was controlled through direct pressure. Post debridement measurements: 5 mm x 5 mm x 3 mm. Character of the wound post debriement is stable (45227) Progress Notes * Bobo VUONG SDOB:1950 (74 yo M)Acc No.[id number]:12/02/2024 Progress Note Patient:?Bobo VUONG Provider:?Christina Delaney DPM :1950???Age:74 Y???Sex:Male Tristen e:12/02/2024 Address:[address] [place] [address] [facility]ila [id number] Pcp:Seferino Ledesma Subjective: * Chief Complaints: * ???Painful nail(s) aggravate d by shoes causing difficulty standing/walkingOpen sore - Toe * HPI: ???Painful Nails:?Pt States Last PCP Visit:?Date:?11/29/2024 ???Skin problems:?Treatments:?[facility]- Local care consisting of daily distilled water wound cleanse, xeroform, application of sterile dressing, offloading/pressure reduction via rest.? * ROS:?General/Constitutional:?Nausea?denies.?Vomiting?denies.?Hunger Thirst?denies.?Loss appetite?denies.?Chills?denies.?Fatigue?denies.?Fever?denies.?Night Sweats?denies.?Unexplained weight loss?denies.?Unexplained [...] Medical History:? * Surgical History:?back surge ry 1998 ?shoulder - RT 12/09/2016discectomy 12/2018right hip replacement 04/2019tendon repair- left ankle - akillies tendon 08/25Skin ulcer R, HT Repair R 2,3, Bone biopsy R2nd 03/26/20205903KHL9-6, Skin Ulcer L, Bone Biopsy L 05/28/2020 * Hospitalization/Major Diagno stic Procedure:?[facility]- Disc Sx 12/2018EKG, Blood Work 03/09/20 * Family History:?Mother: dece ased, colon cancer.?Father: , heart condition, diagnosed with Unspecified essential hypertension.?Spouse: alive.?Paternal Grand Father: diagnosed with Unspecified essential hypertension.? * Social History:?Tobacco Use:?Tobacco use other than smoking?Are you an other tobacco user??No ?Tobacco Control (Standard)?Tobacco use:?Nonsmoker ?Additional Findings: Tobacco non-user?Current nonsmoker ???Drugs/Alcohol:?Drugs?Have you used drugs other than those for medical reasons in the past 12 months??No ???Miscellaneous:?Caffeine: yes, frequency:, 1-2 cups per day. ?Children: yes, 2. ?Exercise: yes, walking. ?Marital status: . 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 ???Drug/Alcohol:?AUDIT-C (Standard)?Did you have a drink containing alcohol in the past year??No ?Points?0 ?Interpretation?Negative * Medications:?TakingAspirin 8 1 MG Tablet Delayed [...] stomach - Side Effectsyes[Allergies Verified] Objective: * Vitals:?Ht:6ft, Wt:230, BMI: 31.19, Shoe size:11.5, BP:135/70mm Hg, Ht-cm: 182.88 cm, Wt-k.33 kg. * Examination: ???Nails: ?NAILS are:?Elongated, overgrown, dystrophic, lytic, greater than 3mm thick, discolored and friable with crumbly malodorous subungual debris, with pain on palpation ,?TA, T1, T2, T3, T4, T5, T6, T7, T8, T9.?Dermatologic: ?ULCER:?Distal dorsal T8 SIZE, 4 mm X 4 mm X 3mm, BASE, fibro-granular, RIM, hyperkeratotic, no undermining or tracking, Sub Q with Fat layer exposed, DRAINAGE, serosanguineous, moderate, NECROTIC TISSUE, loosely-adherent, yellow slough, MALODOR, absent, CALOR, absent, ERYTHEMA, absent.? Assessment: * Assessment: 1.?Pain in right toe(s) - M7 9.674???2.?Onychomycosis - B35.1 (Primary)???3.?Pain in left toe(s) - M79.675???4.?Skin ulcer of toe of right foot with fat layer exposed - L97.512???Notes :Acute problem, Stable (1=3)??? Plan: * Treatment: 2.?Skin ulcer of toe of righ t foot with fat layer exposed?Procedure: 27341-EKYJGCZ SKIN/TISSUE Notes: Patient Educated with: WOUND CARE INSTRUCTIONS.pdf (WOUND CARE INSTRUCTIONS.pdf)?? 3.?Others? Notes: Patient Educated with: WOUND CARE INSTRUCTIONS.pdf (WOUND CARE INSTRUCTIONS.pdf)?? * Procedures:?Debride Nail 6-10:?Nail debridement?Due to the [...] of a nail nipper and/or dremel-type grinder operator, to a more viable healthy nail plate [...] to maintain effectiveness in symptomatic relief - 79336.?Debride skin and subQ:?Open wound?Physician of record performed open wound selective debridement of devitalized necrotic/nonviable soft tissue, fibrin, exudate, epidermis, dermis, thru skin and subcutaneous fat tissue, first 20 sq cm or less, using sharp dissection with sterile 15 blade, and/or tissue nippers. ANESTHESIA- was accomplished TOPICALLY with Lidocaine Hydrochloride Jelly 2 percent, Sterile antibiotic dressing applied. Hemostasis was controlled through direct pressure. Post debridement measurements: 5 mm x 5 mm x 3 mm. Character of the wound post debriement is stable (97877).? * Procedure Codes:?93838 DEBRI DE NAIL, 6 OR MORE, Modifiers: XS 87616 DEBRIDE SKIN/TISSUE, Modifiers: XS * Preventive Medicine:? ??Counseling:?Ulcer:?Continue daily cleanse, application of xeroform, and dry sterile dressing as instructed by [facility].? * Follow Up:?3 Months * Images: * Sign off status: Completed true * Provider:?Christina Delaney DPM Date:?0 12/02/2024 Generated for Steve mosher/Cecilia/eTsandrasmitting on:?12/17/2024 12:30 PM EDT History and Physical Notes * HPI (History of Present Illness) Category Sub-Category Detail Notes Category Not es Painful Nails Pt States Last PCP Visit: Date:: 11/29/2024 Skin problems Treatments: [facility]- Local care consisting of daily distilled water wound cleanse, xeroform, application of sterile dressing, offloading/pressure reduction via rest Examination Category Sub-Category Detail Notes Category Not es Dermatologic ULCER: Distal dorsal T8 SIZE, 4 mm X 4 mm X 3mm, BASE, fibro-granular, RIM, hyperkeratotic, no undermining or tracking, Sub Q with Fat layer exposed, DRAINAGE, serosanguineous, moderate, NECROTIC TISSUE, loosely-adherent, yellow slough, MALODOR, absent, CALOR, absent, ERYTHEMA, absent Nails NAILS are: Elongated, overg rown, dystrophic, lytic, greater than 3mm thick, discolored and friable with crumbly malodorous subungual debris, with pain on palpation , TA, T1, T2, T3, T4, T5, T6, T7, T8, T9
--- OUTSIDE RECORDS SUMMARY | 2024-12-17 12:31 | XMS_ITS ---
Author Organization [facility] Address [address] [place] [address] Care Team Providers Care Research Pharmacist Name Role Phone Rose HARRISON, Yan Primary Care Provider Lee Marie [phone] REASON FOR VISIT colon screening Encounters Encounter Location Date Provider Diagnosis [facility] [address] [place] [address] 01/02/2024 Lee Yost Plan Of Treatment No Information Progress Notes * WALT VUONG SDOB:1950 (74 yo M)Acc No.[id number]:01/02/2024 Progress Notes Patient:?WALT VUONG Provider:?Lee Yost MD :1950???Age:73 Y???Sex:Male Tristen e:01/02/2024 Address:[address] [place] [address] [facility] Pcp:Yan Rose MD Subjective: * Chief Complaints: [...] MD Date:? 024 Generated for Printi ng/Faxing/eTransmitting on:?12/17/2024 12:31 PM EDT
--- OUTSIDE RECORDS SUMMARY | 2024-12-17 12:31 | XMS_ITS ---
Author Organization [facility] Address [address] [place] [address] Care Team Providers Care Porcelain Enamel Installer Name Role Phone Yan Rose MD Primary Care Provider Lee Marie Unavailable [phone] Allergies Allergen (clinical drug ingredient) Drug/Non Drug [...] Problem Status W/U Status Risk Notes Problem 111526993 History of adenomatous polyp of colon (Z86.010) Active confirmed Problem 146169497 Family history of colon cancer (Z80.0) Active confirmed Problem 269968947 Colon cancer screening (Z12.11) Active confirmed Problem 255604582961765 Aspirin long-term use (Z79.82) Active confirmed Vital Signs Temperature 98.2 degrees Fahrenheit 08/18/19 24 Blood pressure systolic 000 mm Hg 08/18/19 24 Blood pressure diastolic 00 mm Hg 024 Height 71.5 in 08/18/2023 Weight 241 lb 4 oz lbs 08/18/2023 BMI 33.17 kg/m2 08/18/2023 Encounters Encounter Location Date Provider Diagnosis [facility] [address] [place] [address] 08/18/2023 Lee Yost History of adenomato us [...] * WALT VUONG SDOB:1950 (73 yo M)Acc No.[id number]:08/18/2023 Progress Notes Patient:?WALT VUONG Provider:?Lee Yost MD :1950???Age:73 Y???Sex:Male Tristen e:08/18/2023 Address:[address] [place] Pcp:Yan Rose MD Subjective: * Chief Complaints: [...] surgery-right 12/2017Hip replacement right 04/2019Back surgery 12/2018Torn Tyler's tendon 08/2018Bilateral foot surgery 2019 * Hospitalization/Major [...] year??Never (0 point),?Points?4,?Interpretation?Positive.?Miscellaneous:?Marital status: . 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 ???Nonsmoker; 1 glass of wine QD. * [...] Procedure Codes:?3017F COLOR ECTAL CA SCREEN DOC BKY0805T TOBACCO NON-BBTDC9429 BP SCR NOT PRFRM REC REASON NOS * Preventive Medicine:? ??Counseling:?Care goal follow-up plan:?Above Normal BMI Follow-up?Giving encouragement to exercise,?BMI management provided?Yes.? * Follow Up:?prn * * Sign off status: Completed true * Provider:?Lee Yost MD Date:? 024 Generated for Steve mosher/Ceciila/Jacobsmitting on:?12/17/2024 12:30 PM EDT History and Physical [...]
--- OUTSIDE RECORDS SUMMARY | 2024-12-17 12:31 | XMS_ITS | Data Portability ---
Author Organization [facility] PAIN OFF[facility] Address [address] [facility] [address] [place] [address] Care Team Providers Care Outreach Team Member Name Role Phone RASTA COATS Referring Provider [...] booked for the same. He needs a inventory associate and driver on the day of the procedure. [...] He wishes to proceed. He needs a inventory associate and driver on the day of the procedure. [...] By Organization Details Last Modified Time 07/11/2018 39198 He was advised against bed rest lasting longer than four days and to continue activities as tolerated. [email or web address] Not available 07/12/2018 14:07:14 07/18/2018 49514 He was advised against bed rest lasting longer than four days and to continue activities as tolerated. [email or web address] Not available 07/19/2018 09:20:09 08/16/2018 40525 He was advised against bed rest lasting longer than four days and to continue activities as tolerated. [email or web address] Not available 08/16/2018 14:22:47 10/10/2018 69009 He was advised against bed rest lasting longer than four days and to continue activities as tolerated. [email or web address] Not available 10/11/2018 09:49:11 Reason for Referral None Reported. Problems Name Problem SNOMED Code Status Onset Date Resolution Date Notes Provider Name and Address Organization Details Recorded Time Lumbosacral radiculopathy 2574812 Active Sallie underwood MD [address] , [address], [place], [address], [place] [facility] 8 15:00:27 Degeneration of lumbar intervertebral disc 60239997 Active Sallie underwood MD [address] , [address], [place], [address], [place] [facility] 8 15:00:36 Lumbosacral spondylosis without myelopathy 94661168 Active Sallie underwood MD [address] , [address], [place], [address], [place] [facility] 8 15:00:54 Spinal stenosis of lumbar region 55583963 Active Sallie underwood MD [address] , [address], [place], [address], [place] [facility] 8 15:01:03 Problem Notes None recorded. Procedures Surgical History Date Name Laterality Status Provider Name and Address Organization Details Recorded Time 10/11/19 19 Lumbar Epidural steroid injection under fluoroscopic guidance completed Sallie Kaplan MD [address] , [address], [place], [address], [place] [facility] 10/11/2018 09:49:54 07/18/20 18 Lumbar Epidural steroid injection under fluoroscopic guidance completed Sallie Kaplan MD [address] , [address], [place], [address], [place] [facility] 07/19/2018 [...] Not Available No t Available Fluzone High-Dose 2543-1420 (PF) 180 mcg/0.5 mL intramuscul ar syringe [...] Updated DateTime 8 182.88 cm 31.2 kg/m2 568082. 25 g 74 /min 97 % 97 [...] % 187 mm[Hg] 90 mm[Hg] Sayra Marquez [facility] 8 08:34:28 Date [...] Social History Question Answer Notes LastModified by [employer] Details LastModified Time Tobacco Smoking Status Never Smoker Sayra cardenas, [place] [facility] 07/11/2018 15:09:11 Which Illicit Or Recreational Drugs Have You Used? No Information not available 07/11/2018 Education 12 Information no t available 07/11/2018 Live Alone Or With Others? With Others Information not available 07/11/2018 Marital Status calli Informatio n not available 07/11/2018 What Was The Date Of Your Most Recent Tobacco Screening? 10/11/2018 Information not available 02/27/2019 Sex: Unknown Functional Status Question Answer Note LastModified by [employer] Details LastModified Time What is your level of alcohol consumption? Occasional Information not available 07/11/2018 Are you currently employed? 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 Family History Relationship [...] SNOMED-CT Code Diagnosis ICD10 Code Diagnosis Note 32541 Sallie Kaplan MD PAIN OFFICE [address] [place] [address] 07/11/2018 14:35:05 07/12/2018 14:21:32 Spinal stenosis of lumbar region 49954314 M48.061 Lumbosacra l radiculopathy 6074040 M54.17 Degenerati on of lumbar intervertebral disc 64970273 M51.36 Lumbosacra l spondylosis without myelopathy 73362092 M47.817 34280 Sallie Kaplan MD PAIN OFFICE [address] [place] [address] 07/18/2018 08:31:36 07/19/2018 09:38:23 Spinal stenosis of lumbar region 53438836 M48.061 Lumbosacra l radiculopathy 3339474 M54.17 Degenerati on of lumbar intervertebral disc 51206418 M51.36 Lumbosacra l spondylosis without myelopathy 15047072 M47.817 71682 Sallie Kaplan MD PAIN OFFICE [address] [place] [address] 08/16/2018 08:32:52 08/16/2018 15:17:26 Spinal stenosis of lumbar region 06858952 M48.061 Lumbosacra l radiculopathy 1513984 M54.17 Degenerati on of lumbar intervertebral disc 40705560 M51.36 Lumbosacra l spondylosis without myelopathy 46691296 M47.817 11790 Sallie Kaplan MD PAIN OFFICE [address] [facility],[address] [place] [address] 10/10/2018 08:35:41 10/11/2018 09:52:26 Spinal stenosis of lumbar region 61478596 M48.061 Lumbosacra l radiculopathy 0625024 M54.17 Degenerati on of lumbar intervertebral disc 86885353 M51.36 Lumbosacra l spondylosis without myelopathy 52988770 M47.817 Health Concerns Section Related Observation LastModified by Organization Detai ls LastModified Time None Recorded Concern Status LastModified by Organization Details LastModified Time None Recorded Advance Directives Directive None Recorded Payers Encounter Date Sequence Insurance Name Policy Number Policy Fuentes Covered Member ID Fuentes Member ID Guarantor Name 07/11/2018 1 [place] [employer] [place] Bobo Benjamin [id number] Bobo Benjamin 07/11/2018 2 [place] [id number] Bobo Benjamin [id number] Bobo Benjamin 07/18/2018 1 [place] Bobo Benjamin [id number] Bobo Benjamin 07/18/2018 2 [place] [id number] Bobo Benjamin [id number] Bobo Benjamin 08/16/2018 1 [place] Bobo Benjamin [id number] Bobo Benjamin 08/16/2018 2 [place] [id number] Bobo Benjamin [id number] Bobo Benjamin 10/10/2018 1 [place] Bobo Benjamin [id number] Bobo Benjamin 10/10/2018 2 [place] [id number] Bobo Benjamin [id number] Bobo Benjamin Notes Date Note Type Note Provider Name and Address Organization Details Recorded Time 07/11/2018 text/html Bobo Benjamin is a 68 year old man with complaints of low back pain radiating into right lower extremity. The pain started two years ago and is becoming greater over the past few months. 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 He describes the pain as a shooting [...] nerve roots.He has trialed physical therapy at [facility] In [place], [place] with some pain benefit. He had a course of medrol dose pack with some pain benefit. He is taking aleve for pain. Sallie Kaplan MD [address] [facility] , [place] [address], [place], [address], [facility] - [facility] 07/17/2018 09:13:08 07/18/2018 text/html He is here today for a lumbar epidural steroid injection under fluoroscopic guidance. Sallie Kaplan MD [address] [facility] , [address], [place], [address], [facility] - [facility] 07/24/2018 08:37:30 08/16/2018 text/html [...] or bowel incontinence. Sallie Kaplan MD [address] , [address], [place], [address], [facility] - [facility] 08/20/2018 15:20:32 10/10/2018 text/html He is here today for a lumbar epidural steroid injection under fluoroscopic guidance. Sallie Kaplan MD [address] [facility] , [address], [place], [address], [facility] - [facility] 10/12/2018 09:58:53
--- OUTSIDE RECORDS SUMMARY | 2024-12-17 12:31 | XMS_ITS ---
Author Organization [facility] OroscoBill Address [address] [place] [address] Care Team Providers Care Beverage Steward Name Role Phone Callie, Kartik Primary Care Provider [phone] Christina Delaney Unavailable [phone] Efrain Reina Unavailable [phone] Allergies Allergen (clinical drug ingredient) Drug/Non Drug [...] 05/06/2024 Encounters Encounter Location Date Provider Diagnosis [facility] [address] [address] 05/06/2024 Efrain Reina Other hammer toe(s) (acquired), [...] 3 Months, Reason: Provider Name:Christina Ruggiero venkatesh, 03/17/2025 11:00:00 AM, [address] [facility], [place], [address], Procedure Notes * Category Sub-Category Detail Notes [...] as necessary. Patient chooses, no pharmaceutical tx (48374) Progress Notes * Bobo VUONG SDOB:1950 (73 yo M)Acc No.[id number]:05/06/2024 Progress Note Patient:?Bobo Vuong Provider:?Efrain Reina DPM :1950???Age:73 Y???Sex:Male Tristen e:05/06/2024 Address:[address] [place] [address] [place], [place]-[address] Pcp:Yan Rose MD Subjective: * Chief Complaints: [...] HT Repair R 2,3, Bone biopsy R2nd 03/26/20201186ASF7-5, Skin Ulcer L, Bone Biopsy L 05/28/2020 * Hospitalization/Major Diagno stic Procedure:?[facility]- Disc Sx G, Blood Work 03/09/20 * Family History:?Mother: dece [...] yes, walking. ?Marital status: . 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 * Medications:?TakingAspirin 8 1 MG Tablet Delayed [...] as necessary. Patient chooses, no pharmaceutical tx (18408).? * Procedure Codes:?12326 DEBRI DE NAIL, 6 OR MORE, Modifiers: XS * Follow Up:?3 Months * Images: * Sign off status: Completed true * Provider:?Efrain Reina DPM Date:? 024 Generated for Steve mosher/Cecilia/Gerardo on:?12/17/2024 12:30 PM EDT History and Physical Notes * HPI (History of Present Illness) Category Sub-Category Detail Notes Category Not es Painful Nails Pt States Last PCP Visit: Date:: 12/06/2023 Skin problems Nature: dryness Location: B/L Duration: a few months Onset/Cause: unknown Foot Pain Nature: aching Location: Bottom, Midfoot, [place] rfoot, LEFT Duration: several years Onset: following [...]
--- OUTSIDE RECORDS SUMMARY | 2024-12-17 12:32 | XMS_ITS ---
Author Organization [facility] Address [address] [place] [address] Care Team Providers Care Gill Box Fixer Name Role Phone Yan Rose MD Primary Care Provider Lee Marie Unavailable [phone] REASON FOR VISIT screening,hx polyps,fam hx colon ca Problems Problem Type SNOMED Code ICD Code Onset Dates Problem Status W/U Status Risk Notes Problem History of polyp of colon (situation) (865429910) Personal history of colonic polyps (Z86.010) Active confirmed Problem Diverticulosis o f large intestine without perforation or abscess without bleeding (K57.30) Active confirmed Encounters Encounter Location Date Provider Diagnosis [facility] [address] [place] [id number] 11/24/2023 Lee Yost Encounter for scre ening [...] * WALT VUONG SDOB:1950 (74 yo M)Acc No.[id number]:11/24/2023 COLON WITH MAC Patient:?WALT VUONG Provider:?Lee Yost MD :1950???Age:73 Y???Sex:Male Tristen e:11/24/2023 Address:[address] [place], [place] [id number] Pcp:Yan Rose MD Subjective: * Chief Complaints: [...] MD Date:? 024 Generated for Steve mosher/Cecilia/eTransmitting on:?12/17/2024 12:31 PM EDT
--- OUTSIDE RECORDS SUMMARY | 2024-12-17 12:32 | XMS_ITS | Patient Health Record ---
Author Organization [facility] Address [address] [place] [address] Care Team Providers Care Classification Counselor Name Role Phone Yan Rose MD Primary Care Provider Lee Marie Unavailable [phone] Allergies Allergen (clinical drug ingredient) Drug/Non Drug [...] Problem Status W/U Status Risk Notes Problem 142264543 Colon cancer screening (Z12.11) Active confirmed Problem Rectal bleeding (92569820) Rectal bleeding (K62.5) Active confirmed Problem 907719079 History of adenomatous polyp of colon (Z86.010) Active confirmed Problem History of polyp of colon (situation) (463911974) Personal history of colonic polyps (Z86.010) Active confirmed Problem Diverticular disease of colon (549071259) Diverticulosis of large intestine without perforation or abscess without bleeding (K57.30) Active confirmed Problem 845339742434042 Aspirin long-ter m use (Z79.82) Active confirmed Problem 837951294 Family history o f colon cancer (Z80.0) Active confirmed Problem 96781381 Heme + stool (R19.5) Active confirmed Problem 87421355 Hypertension, unspecified type (I10) Active confirmed Plan Of Treatment Future Test Test Name Order Date COLONOSCOPY 11/13/2014 COLONOSCOPY 04/11/2018 COLONOSCOPY 08/18/2023 Insurance Providers Payer Name Payer Address Payer Phone Subscriber Number Group Number Insured Name Patient Relationship to Insured Coverage Start Date Coverage End Date MEDICARE OF [place] [address] [place] [address] [id number] WALT VUONG Self - patient is the insured MEDEX ATTN CLAIMS [address] [place] [address] [phone] [id number] WALT VUONG Self - patient is the insured Medical (General) History Medical History History ICD Code Screening Colonoscopies in and in 08/2009--negative except for a hyperplastic polyp in 2003--he was noted to have some mild sigmoid diverticulosis and small internal hemorrhoids; negative colonoscopy in 02/2015 TIA's Hyperlipidemia Denies NC,DM,CVA,Lung disease,renal dise ase HTN Gout Cqiiaycbjegi-svjrg-5 episode s--most recent episode was in September of 2014 -he was in the hospital overnight--his CAT scan described some minimal pancreatitis in the area of the pancreatic head, but no sign of any pancreatic mass--gallbladder is described as normal on the CAT scan--his liver profile was normal at that time, as were his triglycerides; he had his original episode in approx 2009--a gallbladder ultrasound was negative at that time Colonoscopy in 06/2018 with a small tubular adenoma, internal hemorrhoids, and diverticulosis Surgical History Surgery Date(Month/Year) Back surgery Hand surgery Shoulder surgery-right 12/2017 Hip replacement right 04/2019 Back surgery 12/2018 Torn [place]'s tendon 08/2018 Bilateral foot surgery 2020
== END 2024-12-17 11:39 | disposition home or self-care (01) ==
LOC: HO.HMCSH 11:02
PROVIDERS: PCP Internal Medicine; Visit Provider Internal Medicine
DX: I34.0 Nonrheumatic mitral (valve) insufficiency (principal); I10 Essential (primary) hypertension; Z00.00 Encounter for general adult medical examination without abnormal findings

== ENCOUNTER → 2024-12-17 11:02 | Outpatient (BNVA) | payer MEDICARE, SELFPAY | PROVIDERS: PCP Internal Medicine; Visit Provider Internal Medicine | DX: I34.0 Nonrheumatic mitral (valve) insufficiency (principal); I10 Essential (primary) hypertension | CPT/HCPCS: 99202 ==

== ENCOUNTER → 2025-01-20 13:50 | Outpatient (REF) | payer MEDICARE, SELFPAY ==
--- NOTE | 2025-01-20 13:53 | CA_ITS ---
Transthoracic Echocardiogram Patient (Last, First, Middle): Bobo Benjamin S Gender: Male Date of : 1950 Age: 74 Procedure Date: 01/20/2025 Procedure Type: Transthoracic Echocardiogram Location: OP Height: 182.88 cm Weight: 107.05 kg BSA: 2.29 m2 Heart Rate: 63 bpm BP: 146 / 67 mmHg Mental Health Practitioner: SB Referring MD: Seferino Ledesma MD Symptoms: I34.0 - Nonrheumatic mitral (valve) insufficiency Study Quality: Adequate w contrast ECG Rhythm: Sinus Conclusions: - The left ventricular systolic function is normal. The calculated ejection fraction is 62% by biplane method. - No obvious valvular pathology seen on this study. Findings Procedure Information Contrast agent, definity, is being given per protocol without apparent complications. Left Ventricle Normal left ventricular cavity size. There is mildly increased left ventricular wall thickness. The left ventricular systolic function is normal. The calculated ejection fraction is 62% by biplane method. There is no evidence of regional wall motion abnormalities. Diastolic function is normal for age. Right Ventricle Mildly increased right ventricular cavity size. There is normal right ventricular systolic function. Atria Both atria are normal in size. Aortic Valve There is mild calcification of the aortic valve. There is no aortic valve stenosis. There is no aortic valve regurgitation. Mitral Valve The mitral valve appears normal. There is no mitral valve regurgitation. There is no mitral valve stenosis. Pulmonic Valve There is trace pulmonic valve regurgitation. Tricuspid Valve There is trace tricuspid valve regurgitation. There is no evidence of pulmonary hypertension. Great Vessels The asc aorta is normal in size. Small plaque is seen in the sino tubular ridge. Venous The inferior vena cava was not well visualized. Pericardium/Pleural There is a trivial pericardial effusion. Prior Study Comparison No significant change compared to prior study dated: 10/29/2008. Recommendations, Care & Conclusions No obvious valvular pathology seen on this study. Measurements 2D Linear Measurements IVSd: 1.10 0.6-0.9/0.6-1.0 cm LVIDd: 5.36 3.9-5.3/4.2-5.9 cm LVIDd Index: 2.34 2.4-3.2/2.2-3.1 cm/m2 LVIDs: 3.58 2.0-3.6 cm LVPWd: 1.15 0.7-1.1 cm LA Diam: 3.90 2.7-3.8/3.0-4.0 cm LAIDs Index: 1.70 1.5-2.3 cm/m2 LV Mass: 298.19 67-162/88-224 g LV Mass Index: 130.21 43-95/49-115 g/m2 LVOT Diam: 2.30 3.0+(-)1.3 cm 2D Systolic Function EF 4C: 64.30 >55% EF 2C: 59.20 >55% EF BiP: 62.40 >55% Mitral Valve MV Pk E: 0.67 MV PK A: 0.59 MV Decel Time: 282.00 E/A: 1.10 E'Lateral: 6.85 E'Medial: 5.22 E/E' Med: 12.90 E/E' Lat: 9.80 PHT: 83.00 MVA PHT: 2.65 Decel [place]: 2.39 Aortic Valve AoV Pk William: 2.07 AoV Pk Grad: 17.00 MIRA: 2.56 LVOT LVOT Pk William: 1.26 LVOT Mn William: 0.81 LVOT VTI: 0.29 LVOT Pk Grad: 6.00 LVOT Mn Grad: 3.00 LVOT Diam: 2.30 LVOT Area: 4.15 Diastolic Function MV Pk E: 0.67 MV Pk A: 0.59 E/A: 1.10 E'Medial: 5.22 E/E' Med: 12.90 E' Laterial: 6.85 E/E' Lat: 9.80 Right Ventricle TAPSE (mm): 26.50 TVS' William: 13.20 Tricuspid Valve TR Pk William: 2.29 TR Pk Grad: 21.00 RA Press: 3.00 RVSP: 24.00 Great Vessels Aorta Sinus of Valsalva: 3.20 2.0-3.5 cm Ao Asc: 3.40 2.1-3.4 cm Pulmonary Veins Pulm Vein S/D 0.80 Pulmonary Valve PV Pk William: 0.99 Peak PV Grad: 4.00 WV Pk William: 1.72 Updated in Other Vendor System with Status of Final Konstantin Sultana MD electronically signed on 01/21/2025 8:37:41 AM with status of Final
--- OUTSIDE RECORDS SUMMARY | 2025-01-20 15:28 | XMS_ITS | Patient Health Record ---
Author [facility] Orosco[facility] Address [address] [facility] [place] [address] Care Team Providers Care Interactive Video Technician Name Role Phone Seferino Ledesma Primary Care Provider [phone] Christina Delaney Unavailable [phone] Efrain Reina Unavailable [phone] Allergies Allergen (clinical drug ingredient) Drug/Non Drug [...] Bilateral atherosclerosis of arteries of lower limbs (7095368245533036 7) Unspecified atherosclerosis of [place] arteries of extremities, bilateral legs (I70.203) Active confirmed Problem Bilateral peripheral neuropathy of lower limbs (6325535938917184 8) Neuropathy (G62.9) Active confirmed Problem Skin [...] Ordered Date Performed Result Body Sit e 32940-TAYADDE NAIL, 6 OR MORE 08/08/2024 N/A 92676-HMXYZUX NAIL, 6 OR MORE 12/02/2024 N/A 93553-JRRALQR SKIN/TISSUE 12/02/2024 N/A Encounters Encounter Location Date Provider Diagnosis [facility] [address] [place] [address] 02/05/2024 Efrain Reina Other hammer toe(s) (acquired), left foot M20.42 ; Tinea unguium B35.1 ; Other hammer toe(s) (acquired), right foot M20.41 ; Primary osteoarthritis, left ankle and foot M19.072 ; Pain in left toe(s) M79.675 ; Ingrowing nail L60.0 ; Pain in right toe(s) M79.674 ; Xerosis cutis L85.3 and Pain in left foot M79.[address] [address] 05/06/2024 EfrainBeatty Other hammer toe(s) (acquired), left foot M20.42 ; Tinea unguium B35.1 ; Other hammer toe(s) (acquired), right foot M20.41 ; Primary osteoarthritis, left ankle and foot M19.072 ; Pain in left toe(s) M79.675 ; Ingrowing nail L60.0 ; Pain in right toe(s) M79.674 ; Xerosis cutis L85.3 and Pain in left foot M79.[address] [address] 08/08/2024 Christina Delaney Pain in right toe(s) M79.674 ; Onychomycosis B35.1 and Pain in left toe(s) M79.[address] [address] 12/02/2024 Christina Delaney Pain in right toe(s) [...] 04/20/2022 X ray : Foot, right 3V 01/27/2020 X ray : Foot, right 3V 04/20/2022 X ray : Foot, right 3V 03/30/2020 X ray : Foot, right 3V 04/08/2020 X ray : Foot, right 3V 04/20/2020 X ray : Foot, right 3V 05/13/2020 43885-RGMMNXU NAIL, 6 OR MORE 08/08/2024 63919-OJOVMSZ NAIL, 6 OR MORE 12/02/2024 23431- Debride <25 sq cm 01/25/2018 69498- Debride <25 sq cm 04/26/2018 76355- Debride <25 sq cm 09/05/2017 86415- Debride <25 sq cm 12/28/2017 09963- Debride <25 sq cm 01/11/2018 16076-PLWJPUK SKIN/TISSUE 12/18/2017 27667-LHWBMXT SKIN/TISSUE 08/30/2017 41413-FCYDLSN SKIN/TISSUE 03/01/2018 06846-LDKLKAV SKIN/TISSUE 12/02/2024 70037 I&D ABSCESS- SIMPLE,SINGLE 021 25292 I&D ABSCESS- SIMPLE,SINGLE 020 91922-MRVN SKIN LESIONS, 2 TO 4 09/30/19 20 74786-JIAK SKIN LESIONS, 2 TO 4 01/13/20 20 08754-BGVR SKIN LESIONS, 2 TO 4 03/07/20 19 90773-MGNL SKIN LESIONS, 2 TO 4 06/20/20 19 16061-WFPWVKUK OF HEMATOMA/FLUID 019 73108-CHBQUUKK OF HEMATOMA/FLUID 019 91920-Tmxtvlfrd, Toes 01/11/2018 45048- Nail Unit Biopsy 12/18/2017 Next Appt Details Provider Name:Christina riddle, 03/17/2025 11:00:00 AM, [address] [facility], [place], [address], Insurance Providers Payer Name Payer Address Payer Phone Subscriber Number Group Number Insured Name Patient Relationship to Insured Coverage Start Date Coverage End Date Medicare National Govt Sv[employer] [address] [place] [address] [id number] Bobo Benjamin Self - patient is the insured [employer] [address] [place] [address] [id number] Bobo Benjamin Self - patient is the [...]
== END ==
LOC: HO.CARD 13:50
PROVIDERS: PCP Internal Medicine; Visit Provider Internal Medicine
DX: I34.0 Nonrheumatic mitral (valve) insufficiency (principal)
CPT/HCPCS: 93306; Q9957

== ENCOUNTER → 2025-01-20 13:53 | Outpatient (BNV) | payer MEDICARE, SELFPAY | PROVIDERS: PCP Internal Medicine; Visit Provider Internal Medicine | DX: I35.8 Other nonrheumatic aortic valve disorders (principal); I31.39 Other pericardial effusion (noninflammatory) | CPT/HCPCS: 93306 ==

== ENCOUNTER 2025-06-17 09:28 | Outpatient (AMB) | payer MEDICARE, SELFPAY ==
--- OUTSIDE RECORDS SUMMARY | 2024-01-02 04:50 | XMS_ITS ---
Author Organization [facility] Address [address] [place] [address] Care Team Providers Care Multiple Drum Sander Helper Name Role Phone Rose (RETIRED) Yan HARRISON Primary Care Provide Lee Marsh [phone] REASON FOR VISIT colon screening Encounters Encounter Location Date Provider Diagnosis [facility] [address] [place] [id number] 01/02/2024 Lee Yost Plan Of Treatment No Information Progress Notes * WALT VUONG SDOB:1950 (74 yo M)Acc No.[id number]:01/02/2024 Progress Notes Patient: WALT SALINAS Provider: Dalia Yost MD :1950 A ge:73 Y S ex:Male Date:01/02/2024 Address:[address] [place] [address] [id number] Pcp:Yan Rose (RETIRED )MD Subjective: * Chief Complaints: * 1 . Colon screening. * Medical History: Objective: * Vitals: Assessment: Plan: * Treatment: * * The named appointment provid er may or may not be the originator of this progress note, and it is not deemed complete until electronically signed by the appointment provider. Sign off status: Pending * Provider: Dalia Yost MD Date: 0 01/02/2024 Generated for Zenai vidhi/Feliciag/eTransmitting on: 1 08/17/2024 10:25 AM EST
--- OUTSIDE RECORDS SUMMARY | 2025-06-16 04:30 | XMS_ITS ---
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 . . 2-3x/week; Duration: 3-4 weeks Not-Taking Walking Boot/Pneumatic As directed Wear Daily; Duration: Until further notice Not-Taking Finasteride 5 MG 1 tablet Orally Once a day Active Aspirin 81 MG 1 tablet Orally Once a day Active amLODIPine Besylate 5 MG 1 tablet Orally Once a day; Duration: 30 day(s) Active Augmentin 875-125 MG 1 tablet Orally true ry 12 hrs; Duration: 10 day(s) 12/16/2017 Not-Taking Cephalexin 500 MG 1 capsule Orally true ry 12 hrs; Duration: 10 day(s) Not-Taking Losartan Potassium 25 MG Orally 2 x a day Not-Taking Doxycycline Hyclate 100 MG 1 capsule Orally Once a day; Duration: 10 day(s) 01/14/2021 Not-Taking Augmentin 500-125 MG 1 tablet Orally true ry 8 hrs; Duration: 10 days 01/19/2020 Not-Takin g Keflex 500 MG 1 capsule Orally true ry 12 hrs; Duration: 10 days 05/29/2020 Not-Taking Keflex 500 MG 1 capsule Orally true ry 12 hrs; Duration: 10 days 01/20/2020 Not-Taking Social History Tobacco Use: Social History Observation [...] ast year? No Points 0 Interpretation Negative Vital Signs Height 6ft in 06/16/2025 Weight 230 lbs 06/16/2025 BMI 31.19 kg/m2 06/16/2025 Blood pressure systolic 123 mm Hg 06/16/20 25 Blood pressure diastolic 67 mm Hg 025 Procedures Procedure Date Ordered Date Performed Result Body Sit e 64985-QJUBRBN NAIL, 6 OR MORE 06/16/2025 N/A Encounters Encounter Location Date Provider Diagnosis [facility] [address] [address] 06/16/2025 Christina Delaney Pain in right toe(s) M79.674 ; Onychomycosis B35.1 and Pain in left toe(s) M79.675 Assessments Encounter Date Diagnosis (ICD Code) Assessment Notes Treatment Notes Treatment Clinical Notes Section Notes 06/16/2025 Pain in right toe(s) (ICD-10 - M79.674) 06/16/2025 Onychomycosis (ICD-10 - B35.1) 06/16/2025 Pain in left toe(s) (ICD-10 - M79.675) 06/16/2025 Other Patient Educated with: WOUND CARE INSTRUCTIONS.p df (WOUND CARE INSTRUCTIONS.p df) Patient Educated with: WOUND CARE INSTRUCTIONS.p df (WOUND CARE INSTRUCTIONS.p df) Plan Of Treatment Treatment Notes Assessment Notes Other Patient Educated wit h: WOUND CARE INSTRUCTIONS.pdf (WOUND CARE INSTRUCTIONS.pdf) Patient Educated with: WOUND CARE INSTRUCTIONS.pdf (WOUND CARE INSTRUCTIONS.pdf) Pending Test Test Name Order Date [id number]-[id number] NAIL, 6 OR MORE 06/16/2025 Next Appt Details Follow Up: 3 Months, Reason: Provider Name:Christina riddle, 09/29/2025 09:15:00 AM, [address] [place], [address], Procedure Notes * Category Sub-Category Detail Notes [...] use of a nail nipper and/or dremel-type fusion juncture grinder, to a more viable healthy nail [...] to maintain effectiveness in symptomatic relief - 66098 Progress Notes * Bobo VUONG SDOB:1950 (74 yo M)Acc No.[id number]:06/16/2025 Progress Note Patient: Bobo SALINAS Provider: Blu Delaney DPM :1950 A ge:74 Y S ex:Male Date:06/16/2025 Address:[address] [place] [address] Ernestoalvin [facility] Bill [phone] Pcp:Seferino Ledesma Subjective: * Chief Complaints: * P ainful nail(s) aggravated by shoes causing difficulty standing/walking * HPI: P ainful Nails: Pt States Last PCP Visit: D ate: 0 11/29/2024 * ROS: G eneral/Constitutional: Nausea d enies. V omiting d enies. H rafal Thirst d enies. L oss appetite d enies. C hills d enies. F atigue d enies.?Fever d enies. N ight Sweats d enies. U nexplained weight loss d enies. U nexplained weight gain d enies. H EENTM: Dentures d enies. D izziness d enies. G lasses/contacts a dmits. R etinopathy d enies. B lurred/double vision d enies. T MJ?denies. D ischarge/drainage d enies. I mplants d enies. S ore throat d enies. D ental implants d enies. H merritt of hearing d enies. D ifficulty chewing/swallowing/speaking d enies. N ose bleeds d enies. S ore mouth d enies. ? R espiratory: On Oxygen d enies. P neumonia/pleurisy d enies.?Bronchitis d enies. E mphysema d enies. C oughing d enies. C ough blood?denies. S hortness of breath d enies. W heezing d enies. C ardiovascular: Pacemaker d enies. M PAPER CARRIER d enies. W PW d enies. C HF d enies. H eart attack d enies. S eptal defect d enies. R apid beat d enies. C hest pain d enies. A trial Fib. d enies. M urmur/Palpitations d enies. G astrointestinal: Hemorrhoids d enies. S tomach/Abdominal pain d enies. D ark blood stool d enies. I rritable bowel d enies. C onstipation d enies. D iarrhea d enies. H ematology: Swelling d enies. C lots d enies. V aricose Veins d enies. B ruising d enies. B leeding problem d enies. G enitourinary: Blood urine d enies. F requent/Painfu/urination/bladder control d enies. K idney stones d enies. I nfection (UTI) d enies. N ephropathy d enies. s ex trans dis (STD) d enies. P rostate d enies. M usculoskeletal: Hammertoes d enies. B unions d enies. B ack Pain d enies. M uscle Cramps/ Resting d enies. M uscle cramps / walking d enies.?Generalized aches and pains a dmits. W eakness d enies. I nteg.: [place] d enies. S cars d enies. C orns/calluses?denies. I ngrown nails d enies. P ainful nails d enies. O pen Sores d enies. R ashes d enies. N eurologic: Difficulty sleeping d enies. B rain disorder d enies. N umbness d enies. B alance trouble d enies. C onfusion d enies. F ainting/blackouts d enies. T ingling d enies. T remors d enies. * Medical History: * Surgical History: b ack surgery 1997 ?shoulder - RT 12/09/2016discectomy 12/2018right hip replacement 04/2019tendon repair- left ankle - akillies tendon 08/25Skin ulcer R, HT Repair R 2,3, Bone biopsy R2nd 03/26/20207363CLS7-2, Skin Ulcer L, Bone Biopsy L 05/28/2020 * Hospitalization/Major Diagno stic Procedure: B [facility]- Disc Sx 12/2018EKG, Blood Work 03/09/20 * Family History: M other: , colon cancer. F ather: , heart condition, diagnosed with Unspecified essential hypertension. S pouse: alive. P aternal Grand Father: diagnosed with Unspecified essential hypertension. * Social History: T obacco Use: T obacco use other than smoking A re you an other tobacco user? N o Tobacco Control (Standard) T obacco use: N onsmoker A dditional Findings: Tobacco non-user C urrent nonsmoker M iscellaneous: C affeine: yes, frequency:, 1-2 cups per day. Children: yes, 2. Exercise: yes, walking. Marital status: . 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 D rug/Alcohol: A FABI-C (Standard) D id you have a drink containing alcohol in the past year? N o P oints 0 I nterpretation N egative * Medications: T akingFinasteride 5 MG Tablet 1 tablet Orally Once a day Aspirin 81 MG Tablet Delayed Release 1 tablet Orally Once a day amLODIPine Besylate 5 MG Tablet 1 tablet Orally Once a day Doxazosin Mesylate 2 MG Tablet 1 tablet Orally Once a day Metoprolol Tartrate 25 MG Tablet 1 tablet with food Orally Twice a day Simvastatin 20 MG Tablet 1 tablet every evening Orally Once a day Taking Finasteride 5 MG Tablet 1 tablet Orally Once a day Taking Aspirin 81 [...] Tablet 1 tablet Orally every 8 hrs Not-Taking/PRN Keflex 500 MG Capsule 1 [...] reviewed and reconciled with the patient * Allergies: A moxicillin: diarrhea, upset stomach - Side Effectsyes[Allergies Verified] Objective: * Vitals: H t: 6ft, Wt:230, BMI:31.19, Shoe size: 11.5, BP:123/67mm Hg, Ht-cm: 182.88 cm, Wt-k.33 kg. * Examination: N ails: NAILS are: E longated, overgrown, dystrophic, lytic, greater than 3mm thick, discolored and friable with crumbly malodorous subungual debris, with pain on palpation , T A, T1, T2, T3, T4, T5, T6, T7, T8, T9. Assessment: * Assessment: 1. P ain in right toe(s) - M79.674 2 . O nychomycosis - B35.1 (Primary)? 3. P ain in left toe(s) - M79.675 Plan: * Treatment: 2. O thers Notes: Patient Educated with: WOUND CARE INSTRUCTIONS.pdf (WOUND CARE INSTRUCTIONS.pdf) Patient Educated with: WOUND CARE INSTRUCTIONS.pdf (WOUND CARE INSTRUCTIONS.pdf) * Procedures: D ebride Nail 6-10: Nail debridement D ue to the clinical pathology outlined in the [...] use of a nail nipper and/or dremel-type fusion juncture grinder, to a more viable healthy nail [...] to maintain effectiveness in symptomatic relief - 11802. * Procedure Codes: 1 1721 DEBRIDE NAIL, 6 OR MORE, Modifiers: XS * Follow Up: 3 Months * Images: * Sign off status: Completed true * Provider: Blu Delaney DPM Date: 08/16/2024 Generated for Steve mosher/Cecilia/Ronnieitting on: 08/17/2024 10:24 AM EST History and Physical Notes * HPI (History of Present Illness) Category Sub-Category Detail Notes Category Not es Painful Nails Pt States Last PCP Visit: Date:: 11/29/2024 Examination Category Sub-Category Detail Notes Category Not es Nails NAILS are: Elongated, overg rown, dystrophic, lytic, greater than 3mm thick, discolored and friable with crumbly malodorous subungual debris, with pain on palpation , TA, T1, T2, T3, T4, T5, T6, T7, T8, T9
[2025-06-17 09:26] VITALS: BP 141/65; PULSE 70; RESP 16; TEMP 36.6; O2SAT 97; BMI 32.4
--- NOTE | 2025-06-17 09:26 | MHC.PC.OV ---
Vital Signs 06/17/25 09:26 Height 6 ft Weight 239 lb BMI 32.4 BP 141/65 H Blood Pressure Location Rt brachial Position Sitting Respiration 16 Pulse 70 Pulse Source Pulse Oximeter Temp 97.8 F Temp Source Temporal Artery Scan Pulse Oximetry (%) 97 Oxygen Delivery Method Room Air Intake Visit Reasons: 6 month f/u Medical Records Administrator Required: No Accompanied by: Self / Same As Patient Allergies amoxicillin (From Augmentin) Adverse Reaction (Verified 06/17/25 09:26) Diarrhea clavulanic acid (From Augmentin) Adverse Reaction (Verified 06/17/25 09:26) Diarrhea Tobacco use date assessed: 12/17/24 Dental Screening Dental Screen Date: 12/17/24 [facility] Medical History Finger mass, right Skin cancer Gout Arthritis TIA (transient ischemic attack) On beta mango at home Pre-diabetes Elevated cholesterol BPH (benign prostatic hyperplasia) Back pain Hypertension Surgical History Hx of hammer toe correction S/P Achilles tendon repair History of back surgery Hx of colonoscopy (~11/24/23) History of total right hip arthroplasty Family History Father No problems noted. Mother No problems noted. Social History Housing: House Alcohol intake: current Alcohol intake frequency: 0-2 drinks per day Alcohol type: wine Patient Tobacco Use Status: Never used Tobacco service: No Current occupational status: retired Cognitive needs: No Hearing needs: No Vision needs: Yes (rx glasses) Questionnaire PHQ-9 Over the last 2 weeks, how often have you been bothered by any of the following problems? 1. Little interest or pleasure in doing things: not at all 2. Feeling down, depressed, or hopeless: not at all 3. Trouble falling or staying asleep, or sleeping too much: not at all 4. Feeling tired or having little energy: not at all 5. Poor appetite or overeating: not at all 6. Feeling bad about yourself - or that you are a failure or have let yourself or your family down: not at all 7. Trouble concentrating on things, such as reading the newspaper or watching television: not at all 8. Moving or speaking so slowly that other people could have noticed. Or the opposite - being so fidgety or restless that you have been moving around a lot more than usual: not at all 9. Thoughts that you would be better off or of hurting yourself in some way: not at all Total score: 0 Depression Screening Interpretation: Negative Depression Screening Done: Yes Source: Developed by Drs. Lee Welch, Terra Justin, Frantz Jules and colleagues, with an educational nico from [employer]. Thrive Questionnaire Date Thrive assessed: 12/17/24 I am a: Patient What is your living situation today?: I have a steady place to live Within the past 12 months, did the food you bought not last and you didn't have the money to get more?: Never true Within the past 12 months, did you worry whether your food would run out before you got money to buy more?: Never true Do you have trouble paying for medicines?: No Do you have trouble getting transportation to medical appointments?: No Do you have trouble paying your heating and electricity bill?: No Do you have trouble taking care of your child, family member or friend?: No Do you have trouble with day-to-day activities such as bathing, preparing meals, shopping, managing finances, etc.?: No Are you currently unemployed and looking for a job?: No Are you interested in more education?: No Please select the resources that you would like help with: None THRIVE Score: 0 AUDIT C Alcohol Use Questionnaire (AUDIT-C) 1. How often do you have a drink containing alcohol?: 4 or more times a week 2. How many drinks containing alcohol do you have on a typical day when you are drinking?: 1 or 2 3. How often do you have six or more drinks on one occasion?: Never Total Score: 4 EDGAR-7 AMB Questionnaire EDGAR-7 Date EDGAR - 7 assessed: 12/17/24 Feeling nervous, anxious, or on edge: 0 = Not at all Not being able to stop or control worryin = Not at all Worrying too much about different things: 0 = Not at all Trouble relaxin = Not at all Being so restless that it is hard to sit still: 0 = Not at all Becoming easily annoyed or irritable: 0 = Not at all Feeling afraid as if something awful might happen: 0 = Not at all Total EDGAR-7 score (0-4 normal; 5-9 mild; 10-14 moderate; 15-21 severe): 0 Source: Developed by Drs. Lee Welch, Terra Justin, Frantz Jules and colleagues, with an educational nico from [employer]. Physical exam (Primary Care) Vital Signs: Last Vital Signs Temp 97.8 F 06/17/25 09:26 Pulse 70 06/17/25 09:26 Resp 16 06/17/25 09:26 BP 141/65 H 06/17/25 09:26 Pulse Ox 97 06/17/25 09:26 Oxygen Delivery Method Room Air 06/17/25 09:26 BMI result Body Mass Index 32.4 Tobacco/Smoking Status: Tobacco use Status Tobacco use date assessed 12/17/24 06/17/25 09:27 Patient Tobacco Use Status Never used Tobacco 06/17/25 09:27 PHQ-9: PHQ-9 Score PHQ-9: Total score 0 06/17/25 09:45 Depression Screening Interpretation: Negative Thrive Assessment: Date of Thrive Assessment Date Thrive assessed 12/17/24 06/17/25 09:27 Office Procedures Flu Questionnaire Does the patient have a severe egg allergy?: No Does the patient have severe life threatening allergies?: No Does the patient have a fever or illness today?: No Has the patient ever had Guillain-[place] Syndrome?: No Has the patient ever had any past reaction to a flu shot?: No Immunizations Fluarix [id number] (PF) 45 mcg (15 mcg x 3)/0.5 mL IM syringe Performing Provider: Seferino Ledesma MD [facility] [place] Documented (not given) by: NEERU Ibrahim on 06/17/25 09:45 Reason Not Given: Received Previously Coding Level of Care Code Est Pt Level 4 (76805) Complex EM visit Add On G2211 Diagnoses Hypertension I10 Assessment & Plan Assessment & Plan (1) Hypertension: Code(s): I10 - Essential (primary) hypertension Category: Medical Plan: History of Present Illness - The patient is a 74-year-old male presenting for a follow-up visit for management of chronic conditions and health maintenance. - A heart murmur was previously identified, and an echocardiogram on January 20 confirmed a small, insignificant murmur on the right side of the heart. - The patient was reassured it is not concerning. - For benign prostatic hyperplasia, the patient was previously started on finasteride to improve urinary flow and reports that it has been helpful. - He also takes doxazosin, amlodipine, aspirin, metoprolol, and simvastatin. - Regarding health maintenance, his last blood work was in September of this year and was normal. - He received his influenza vaccination two weeks ago and is up to date on his colonoscopy. Social History - Functional Status: The patient is able to drive without any problems. - Activities: The patient stays busy working around the house, reading, and doing puzzles. Review of Systems - Constitutional: The patient reports feeling pretty good and denies any specific health concerns. - Genitourinary: Reports improved urinary flow with medication. - Neurological: Reports sleeping well. - Head/Eyes/Ears/Nose/Throat: Denies any issues with vision or hearing. Physical Exam General: Cooperative and healthy appearing Nutritional Appearance: Well nourished Orientation/consciousness: Patient oriented x3 Limitations: No limitations Head: Normal to inspection General: Appearance normal, both eyes and all related structures Neck: Normal visual inspection Chest: Normal palpation of entire chest wall Respiratory: Normal respiratory effort Neurology: Patient oriented x3 Results - Echocardiogram (January 20): Showed a small, clinically insignificant heart murmur. - Labs (September this year): Blood work was noted to be fine. - Labs (prior): PSA was in range. Plan - Heart Murmur: The patient was reassured that the small, right-sided heart murmur found on echocardiogram is not clinically significant and requires no further intervention at this time. - Benign Prostatic Hyperplasia: Continue current therapy with finasteride and doxazosin, as the patient reports good efficacy for urinary symptoms. - Health Maintenance: The patient will proceed to the lab for repeat routine blood work. - Follow-up: The patient will follow up in 6 months for continued management. Discussion Notes I reviewed the results of the patient's echocardiogram from January 20, explaining that it showed a small heart murmur on the right side of the heart, which is not clinically significant. I reassured him that this is not a concern. We discussed his medications for BPH, finasteride and doxazosin, and he confirmed they have improved his urinary flow. He agreed to continue these medications. I advised the patient to have his routine blood work repeated. We confirmed he is up-to-date with his colonoscopy and has received his flu shot. We scheduled a follow-up appointment in six months. Patient Instructions - You have a small heart murmur that is not dangerous and does not need any treatment. - Continue taking your current medications, including Finasteride and Doxazosin, as they are helping with your urinary flow. - Please go to the lab to get your blood work repeated. - Please schedule a follow-up visit in six months. Orders: Orders Influenza [id number] Immunization Today Z23 - Encounter for immunization
--- OUTSIDE RECORDS SUMMARY | 2025-06-17 10:25 | XMS_ITS | Patient Health Record ---
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 Role Phone Seferino Ledesma Primary Care Provider Christina Delaney [phone] Allergies Allergen (clinical drug ingredient) Drug/Non Drug Allergy documented on EMR Reaction Allergy Type Onset Date Status amoxicillin Amoxicillin diarrhea, upset stomach Drug Allergy Active Reason For Referral No Information Medications Medication SIG (Take, Route, Frequency, Duration) Notes Start Date End Date Status Losartan Potassium 25 MG Orally 2 x a day Not-Taking Finasteride 5 MG 1 tablet Orally Once a day Active Aspirin 81 MG 1 tablet Orally Once a day Active amLODIPine Besylate 5 MG 1 tablet Orally Once a day; Duration: 30 day(s) Active Augmentin 875-125 MG 1 tablet Orally true ry 12 hrs; Duration: 10 day(s) 12/16/2017 Not-Taking Doxazosin Mesylate 2 MG 1 tablet Orally Once a day Active Cephalexin 500 MG 1 capsule Orally true ry 12 hrs; Duration: 10 day(s) Not-Taking Metoprolol Tartrate 25 MG 1 tablet with food Orally Twice a day Active Simvastatin 20 MG 1 tablet every eveni ng Orally Once a day; Duration: 30 day(s) Active Physical Therapy . . . 2-3x/week; Duration: 3-4 weeks Not-Taking Walking Boot/Pneumatic As directed Wear Daily; Duration: Until further notice Not-Taking Doxycycline Hyclate 100 MG 1 capsule Orally Once a day; Duration: 10 day(s) 01/14/2021 Not-Taking Augmentin 500-125 MG 1 tablet Orally true ry 8 hrs; Duration: 10 days 01/19/2020 Not-Takin g Keflex 500 MG 1 capsule Orally true ry 12 hrs; Duration: 10 days 05/29/2020 Not-Taking Keflex 500 MG 1 capsule Orally rtue ry 12 hrs; Duration: 10 days 01/20/2020 Not-Taking Immunizations Vaccine Route Administration Date Status Comme nts Influenza Unknown 05/08/2024 Administered Influenza Unknown 05/26/2025 Administered COVID-19 Moderna Vaccine Unknown 05/14/2021 Administere d [...] Bilateral atherosclerosis of arteries of lower limbs (disorder) (2617527549081267 7) Unspecified atherosclerosis of [place] arteries of extremities, bilateral legs (I70.203) Active confirmed Problem Neuropathy (218920258) Neuropathy (G62.9) Active confirmed Problem Skin ulcer of to e of right foot with fat layer exposed (L97.512) Active confirmed Acute problem, Stable (1=3) Problem Skin ulcer of to e of left foot with fat layer exposed (L97.522) Active confirmed Response to treatment Vital Signs Blood pressure diastolic 67 mm Hg 06/16/2025 Height 6ft in 06/16/2025 Blood pressure systolic 123 mm Hg 06/16/2025 Weight 230 lbs 06/16/2025 BMI 31.19 kg/m2 06/16/2025 Procedures Procedure Date Ordered Date Performed Result Body Sit e 31991-BAXRSHO NAIL, 6 OR MORE 08/08/2024 N/A 34015-SLDVCUR NAIL, 6 OR MORE 12/02/2024 N/A 07834-XMBUYGL SKIN/TISSUE 12/02/2024 N/A 27748-GPCEYEI NAIL, 6 OR MORE 03/17/2025 N/A 16271-DNUSDRL NAIL, 6 OR MORE 06/16/2025 N/A Encounters Encounter Location Date Provider Diagnosis [address] [address] 08/08/2024 Christina Delaney Pain in right toe(s) M79.674 ; Onychomycosis B35.1 and Pain in left toe(s) M79.[address] [address] 12/02/2024 Christina Delaney Pain in right toe(s) M79.674 ; Onychomycosis B35.1 ; Pain in left toe(s) M79.675 and Skin ulcer of toe of right foot with fat layer exposed L97.[address] [address] 03/17/2025 Christina Delaney Pain in right toe(s) M79.674 ; Onychomycosis B35.1 and Pain in left toe(s) M79.[address] [address] 06/16/2025 Christina Delaney Pain in right toe(s) M79.674 ; Onychomycosis B35.1 and Pain in left toe(s) M79.675 Assessments Encounter Date Diagnosis (ICD Code) Assessment Notes Treatment Notes Treatment Clinical Notes Section Notes 08/08/2024 Pain in right toe(s) (ICD-10 - M79.674) 12/02/2024 Pain in right toe(s) (ICD-10 - M79.674) 03/17/2025 Pain in right toe(s) (ICD-10 - M79.674) 06/16/2025 Pain in right toe(s) (ICD-10 - M79.674) 06/16/2025 Onychomycosis (ICD-10 - B35.1) 03/17/2025 Onychomycosis (ICD-10 - B35.1) 06/16/2025 Pain in left toe(s) (ICD-10 - M79.675) 12/02/2024 Onychomycosis (ICD-10 - B35.1) 03/17/2025 Pain in left toe(s) (ICD-10 - M79.675) 08/08/2024 Onychomycosis (ICD-10 - B35.1) 12/02/2024 Pain in left toe(s) (ICD-10 - M79.675) 08/08/2024 Pain in left toe(s) (ICD-10 - M79.675) 12/02/2024 Skin ulcer of toe of right foot with fat layer exposed (ICD-10 - L97.512) Acute problem, Stable (1=3) Patient Educated with: WOUND CARE INSTRUCTIONS.p df (WOUND CARE INSTRUCTIONS.p df) 12/02/2024 Other Patient Educated with: WOUND CARE INSTRUCTIONS.p df (WOUND CARE INSTRUCTIONS.p df) 03/17/2025 Other Patient Educated with: WOUND CARE INSTRUCTIONS.p df (WOUND CARE INSTRUCTIONS.p df) Patient Educated with: WOUND CARE INSTRUCTIONS.p df (WOUND CARE INSTRUCTIONS.p df) 06/16/2025 Other Patient Educated with: WOUND CARE [...] 06/15/2020 X ray : Foot, right 3V 03/30/2020 X ray : Foot, right 3V 04/08/2020 X ray : Foot, right 3V 04/20/2020 X ray : Foot, right 3V 05/13/2020 X ray : Foot, right 3V 01/27/2020 X ray : Foot, right 3V 04/20/2022 04189-UIBAQYM NAIL, 6 OR MORE 03/17/2025 53785-CZBBULU NAIL, 6 OR MORE 06/16/2025 29532-NLYSZSN NAIL, 6 OR MORE 08/08/2024 67084-IQKYLON NAIL, 6 OR MORE 12/02/2024 58072- Debride <25 sq cm 01/25/2018 42284- Debride <25 sq cm 04/26/2018 00324- Debride <25 sq cm 09/05/2017 82746- Debride <25 sq cm 12/28/2017 38235- Debride <25 sq cm 01/11/2018 21333-RSZITCE SKIN/TISSUE 12/18/2017 29079-LDSZLAA SKIN/TISSUE 08/30/2017 52475-LWZAYTO SKIN/TISSUE 03/01/2018 37245-LMYZIMK SKIN/TISSUE 12/02/2024 65669 I&D ABSCESS- SIMPLE,SINGLE 021 70176 I&D ABSCESS- SIMPLE,SINGLE 020 17915-CFLG SKIN LESIONS, 2 TO 4 09/30/19 20 67582-HLZU SKIN LESIONS, 2 TO 4 01/13/20 20 83563-JFRR SKIN LESIONS, 2 TO 4 03/07/20 19 55165-OSOH SKIN LESIONS, 2 TO 4 06/20/20 19 94345-XVRTGMQF OF HEMATOMA/FLUID 019 20610-QCHTDFFM OF HEMATOMA/FLUID 019 15066-Cyflsytyu, Toes 01/11/2018 11434- Nail Unit Biopsy 12/18/2017 Next Appt Details Provider Name:Christina Ruggiero [email or web address], 09/29/2025 09:15:00 AM, [address] [place], [address], Insurance Providers Payer Name Payer Address Payer Phone Subscriber Number Group Number Insured Name Patient Relationship to Insured Coverage Start Date Coverage End Date Medicare National Govt [facility] [address] [place] [address] [id number] Bobo Benjamin Self - patient is the insured [employer] [address] [place] [address] [id number] Bobo Benjamin Self - patient is the [...]
--- OUTSIDE RECORDS SUMMARY | 2025-06-17 10:25 | XMS_ITS | Data Portability ---
Author Organization [facility] Address [address] [facility] [place] [address] Care Team Providers Care Member Service Specialist Name Role Phone BHUMIKA COATSISSA Referring Provider JUANA LUTZ Primary Care Provider [...] booked for the same. He needs a stunt driver on the day of the procedure. [email or web address] Not available 07/12/2018 14:20:41 07/18/2018 07/18/2018 Bobo [...] He wishes to proceed. He needs a stunt driver on the day of the procedure. [...] By Organization Details Last Modified Time 07/11/2018 11117 He was advised against bed rest lasting longer than four days and to continue activities as tolerated. [email or web address] Not available 07/12/2018 14:07:14 07/18/2018 86176 He was advised against bed rest lasting longer than four days and to continue activities as tolerated. [email or web address] Not available 07/19/2018 09:20:09 08/16/2018 06726 He was advised against bed rest lasting longer than four days and to continue activities as tolerated. [email or web address] Not available 08/16/2018 14:22:47 10/10/2018 82518 He was advised against bed rest lasting longer than four days and to continue activities as tolerated. [email or web address] Not available 10/11/2018 09:49:11 Reason for Referral None Reported. Problems Name Problem SNOMED Code Status Onset Date Resolution Date Notes Provider Name and Address Organization Details Recorded Time Lumbosacral radiculopathy 5422449 Active Sallie underwood MD [address] , [address], [place], [address], [place] [facility] 8 15:00:27 Degeneration of lumbar intervertebral disc 44771311 Active Sallie underwood MD [address] , [address], [place], [address], [place] [facility] 8 15:00:36 Lumbosacral spondylosis without myelopathy 71462423 Active Sallie underwood MD [address] , [address], [place], [address], [place] [facility] 8 15:00:54 Spinal stenosis of lumbar region 36417208 Active Sallie underwood MD [address] , [address], [place], [address], [place] [facility] 8 15:01:03 Problem Notes None recorded. Procedures Surgical History Date Name Laterality Status Provider Name and Address Organization Details Recorded Time 10/11/19 19 Lumbar Epidural steroid injection under fluoroscopic guidance completed Sallie Kaplan MD [address] , [address], [place], [address], [place] [facility] 10/11/2018 09:49:54 07/18/20 18 Lumbar Epidural steroid injection under fluoroscopic guidance completed Sallie Kaplan MD [address] , [address], [place], [address], [facility] 07/19/2018 09:19:27 Back [...] Not Available No t Available Fluzone High-Dose 0810-9439 (PF) 180 mcg/0.5 mL intramuscul ar syringe TO BE ADMINISTE RED BY PHARMACIS T FOR IMMUNIZAT ION 07/11 completed Not Available Not Available Not Available Fluzone High-Dose 2994-6796 (PF) 180 mcg/0.5 mL intramuscul ar syringe TO BE ADMINISTE RED BY PHARMACIS T FOR IMMUNIZAT ION 07/11 completed Not Available Not Available Not Available Vitals Date Recorded Body height Heart rate Oxygen saturation Oxygen saturation in Arterial blood by Pulse oximetry Systolic And Diastolic Provider Name and Address Organization Details Last Updated DateTime 9 182.88 cm 75 /min 97 % 97 % 168/87 mm[Hg] Sayra Marquez [place] [facility] 9 08:42:24 Date Recorded Body height Heart rate Oxygen saturation Oxygen saturation in Arterial blood by Pulse oximetry Systolic And Diastolic Provider Name and Address Organization Details Last Updated DateTime 9 182.88 cm 74 /min 98 % 98 % 171/89 mm[Hg] Sayra Marquez [place] [facility] 9 08:44:16 Date Recorded Body height Body mass index (BMI) Body weight Heart rate Oxygen saturation Oxygen saturation in Arterial blood by Pulse oximetry Systolic And Diastolic Provider Name and Address Organization Details Last Updated DateTime 8 182.88 cm 31.2 kg/m2 221157. 25 g 74 /min 97 % 97 % 163/88 mm[Hg] Sayra Marquez [place] [facility] 8 14:59:24 Date Recorded Body height Heart rate Oxygen saturation Oxygen saturation in Arterial blood by Pulse oximetry Systolic And Diastolic Provider Name and Address Organization Details Last Updated DateTime 8 182.88 cm 74 /min 98 % 98 % 187/90 mm[Hg] Sayra Marquez [place] [facility] 8 08:34:28 Social History Question Answer Notes LastModified by MyEdu Details LastModified Time Tobacco Smoking Status Never Smoker Sayra Teranflynn cardenas [facility] 07/11/2018 15:09:11 Which Illicit Or Recreational Drugs Have You Used? No Information not available 07/11/2018 Education 12 Information no t available 07/11/2018 Live Alone Or With Others? With Others [email or web address] Information not available 07/11/2018 Marital Status Informatio n not available 07/11/2018 What Was The Date Of Your Most Recent Tobacco Screening? 10/11/2018 Information not available 02/27/2019 Sex: Unknown Functional Status Question Answer Note LastModified by MyEdu Details LastModified Time What is your level of alcohol consumption? Occasional Information not available 07/11/2018 Are you currently employed? 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 [email or web address] Information not available 07/11/2018 Mental Status None [...] Diagnosis SNOMED-CT Code Diagnosis ICD10 Code Diagnosis IMO Codes Diagnosis Note 66507 Sallie Kaplan MD PAIN OFFICE [address] [place] [address] 07/11/2018 14:35:05 07/12/2018 14:21:32 Spinal stenosis of lumbar region 78942585 M48.061 Lumbosacra l radiculopathy 7246314 M54.17 Degenerati on of lumbar intervertebral disc 50515889 M51.36 Lumbosacra l spondylosis without myelopathy 81069798 M47.817 07654 Sallie Kaplan MD PAIN OFFICE [address] [place] [address] 07/18/2018 08:31:36 07/19/2018 09:38:23 Spinal stenosis of lumbar region 25422129 M48.061 Lumbosacra l radiculopathy 4347199 M54.17 Degenerati on of lumbar intervertebral disc 56370590 M51.36 Lumbosacra l spondylosis without myelopathy 23472488 M47.817 86176 Sallie Kaplan MD [facility] [address] [place] [address] 08/16/2018 08:32:52 08/16/2018 15:17:26 Spinal stenosis of lumbar region 37757982 M48.061 Lumbosacra l radiculopathy 9902466 M54.17 Degenerati on of lumbar intervertebral disc 62299512 M51.36 Lumbosacra l spondylosis without myelopathy 08553742 M47.817 74097 Sallie Kaplan MD [facility] [address] [place] [address] 10/10/2018 08:35:41 10/11/2018 09:52:26 Spinal stenosis of lumbar region 14463792 M48.061 Lumbosacra l radiculopathy 3461250 M54.17 Degenerati on of lumbar intervertebral disc 61047894 M51.36 Lumbosacra l spondylosis without myelopathy 60692675 M47.817 Health Concerns Section Related Observation LastModified by Organization Detai ls LastModified Time None Recorded Concern Status LastModified by Organization Details LastModified Time None Recorded Advance Directives Directive None Recorded Payers Insurance Date Sequence Insurance Name Policy Number Policy Fuentes Covered Member ID Fuentes Member ID Guarantor Name 12/03/2018 1 [place] [employer] Bobo Benjamin [id number] Bobo Benjamin 12/03/2018 2 [place] [id number] Bobo Benjamin [id number] Bobo Benjamin 07/12/2018 3 [place] [id number] Bobo Benjamin [id number] Bobo Benjamin 07/12/2018 3 [place] [id number] Bobo Benjamin [id number] Daniel Benjamin Notes Date Note Type Note Provider Name and Address Organization Details Recorded Time 07/11/2018 text/html Bobo Benjamin is a 68 year old man with complaints of low back pain radiating into right lower extremity. The pain started two years ago and is becoming greater over the past few months. 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 He describes the pain as a shooting [...] has trialed physical therapy at [facility] [place], [place] with some pain benefit. He had a course of medrol dose pack with some pain benefit. He is taking aleve for pain. Sallie Kaplan MD [address] [facility] , [address], [place], [address], [place] [facility] 07/17/2018 09:13:08 07/18/2018 text/html He is here today for a lumbar epidural steroid injection under fluoroscopic guidance. Sallie Kaplan MD [address] [facility] , [address], [place], [address], [place] [facility] 07/24/2018 08:37:30 08/16/2018 text/html He [...] or bowel incontinence. Sallie Kaplan MD [address] [facility] , [address], [place], [address], [place] [facility] 08/20/2018 15:20:32 10/10/2018 text/html He is here today for a lumbar epidural steroid injection under fluoroscopic guidance. Sallie Kaplan MD [address] [facility] [facility] , [address], [place], [address], [place] [facility] 10/12/2018 09:58:53
--- OUTSIDE RECORDS SUMMARY | 2025-06-17 10:25 | XMS_ITS | Patient Health Record ---
Author Organization [facility] Address [address] [place] [address] Care Team Providers Care Supervisor Diagnostic Name Role Phone Rose (RETIRED) Yan HARRISON Primary Care Provide r Lee Muse Unavailable [phone] Allergies Allergen (clinical drug ingredient) Drug/Non Drug [...] UT) 1 tablet Oral ly Once a day; Duration: 30 day(s) Active Multi Vitamin/Minerals Orally Active Losartan Potassium 50 MG 1 tablet Orally Once a day Active Doxazosin Mesylate 2 MG 1 tablet Orally Once a day Active Aspir-81 81 MG 1 tablet Orally Once a day Active amLODIPine Besylate 5 MG TAKE 1 TABLET B Y MOUTH EVERY DAY Oral; Duration: 90 Active Immunizations Vaccine Route Administration Date [...] Problem Status W/U Status Risk Notes Problem Colon cancer screening (586858769) Colon cancer screening (Z12.11) Active confirmed Problem Rectal bleeding (71409892) Rectal bleeding (K62.5) Active confirmed Problem History of adenomatous polyp of colon (233482201) History of adenomatous polyp of colon (Z86.010) Active confirmed Problem History of polyp of colon (situation) (657171791) Personal history of colonic polyps (Z86.010) Active confirmed Problem Diverticular disease of colon (909786403) Diverticulosis of large intestine without perforation or abscess without bleeding (K57.30) Active confirmed Problem Long-term current use of aspirin (541864988338746 ) Aspirin long-term use (Z79.82) Active confirmed Problem Family History of Cancer of Colon (Situation) (366390957) Family history of colon cancer (Z80.0) Active confirmed Problem Abnormal feces (912944024) Heme + stool (R19.5) Active confirmed Problem Essential hypertension (01979721) Hypertension, unspecified type (I10) Active confirmed Plan Of Treatment Future Test Test Name Order Date COLONOSCOPY 11/13/2014 COLONOSCOPY 04/11/2018 COLONOSCOPY 08/18/2023 Insurance Providers Payer Name Payer Address Payer Phone Subscriber Number Group Number Insured Name Patient Relationship to Insured Coverage Start Date Coverage End Date MEDICARE OF [place] [address] [place] [address] [id number] WALT VUONG Self - patient is the insured [employer] ATT[employer] CLAIMS [address] [place] [address] [id number] WALT VUONG Self - patient is the insured Medical (General) History Medical History History ICD Code Screening Colonoscopies in and in 08/2009--negative except for a hyperplastic polyp in 2003--he was noted to have some mild sigmoid diverticulosis and small internal hemorrhoids; negative colonoscopy in 02/2015 TIA's Hyperlipidemia Denies LA,DM,CVA,Lung disease,renal dise ase HTN Gout Myodkogazegw-ferfh-4 episode s--most recent episode was in September [...] replacement right 04/2019 Back surgery 12/2018 Torn [place]'s tendon 08/2018 Bilateral foot surgery 2020
== END 2025-06-17 10:12 | disposition home or self-care (01) ==
LOC: HO.HMCSH 09:29
PROVIDERS: PCP Internal Medicine; Visit Provider Internal Medicine
DX: I10 Essential (primary) hypertension (principal); Z23 Encounter for immunization

== ENCOUNTER → 2025-06-17 09:28 | Outpatient (BNVA) | payer MEDICARE, SELFPAY | PROVIDERS: PCP Internal Medicine; Visit Provider Internal Medicine | DX: I10 Essential (primary) hypertension (principal) | CPT/HCPCS: 90471; 99212 ==